=== PATIENT | male | born 1935 | race Caucasian/White ===

== ENCOUNTER 2017-12-13 09:23 | Inpatient (IN) ==
--- NOTE | 2017-12-13 09:58 | ED ---
HPI General Chief complaint: Nausea/Vomiting/Diarrhea Stated complaint: Medical Time Seen by Provider: 12/13/17 09:34 Source: patient Mode of arrival: ambulatory Limitations: no limitations History of Present Illness HPI Narrative: The patient is a 82-year-old male who presents to the emergency department for diarrhea and generalized weakness. The patient states she was recently treated for left lower extremity cellulitis, finished an unknown antibiotic yesterday. The patient states he lives in the [facility], an assisted living facility, went to dinner last night with his friends. However, the patient states he ordered a grilled cheese sandwich but was not hungry and took to grilled cheese sandwich home. The patient then went to bed, was sitting on the side of the bed when he slowly slid to the ground and required help off of the ground. The patient states he was awakened in the middle the night with diarrhea, had 2 episodes of diarrhea which she describes as loose but not watery. He denies any visible blood in the diarrhea. He denied any nausea, vomiting, or abdominal pain. The patient' s symptoms have currently resolved and he states he is hungry upon arrival. He denies any fever, chills, or sweats. Symptoms are mild to moderate and have currently resolved. MD complaint: diarrhea Onset (ago): hour(s) Description of Vomiting: other Description of Diarrhea: resolved Associated Abdominal Pain: No Severity: mild Severity scale (1-10): 2 Pain Consistency: now resolved Relieving factors: none Exacerbating factors: none Associated symptoms: malaise Related Data Home Medications Medication Instructions Recorded Confirmed allopurinol 100 mg PO DAILY 12/13/17 12/13/17 atenolol 50 mg PO DAILY 12/13/17 12/13/17 clopidogrel 75 mg PO DAILY 12/13/17 12/13/17 gabapentin 300 mg PO BID 12/13/17 12/13/17 glipizide 5 mg PO BID 12/13/17 12/13/17 lisinopril 20 mg PO DAILY 12/13/17 12/13/17 sitagliptin [Januvia] 100 mg PO DAILY 12/13/17 12/13/17 tramadol 50 mg PO QID 12/13/17 12/13/17 Allergies Allergy/AdvReac Type Severity Reaction Status Date / Time ciprofloxacin Allergy Severe Unverified 11/07/16 14:33 levofloxacin Allergy Severe Unverified 11/07/16 14:33 penicillin G Allergy Severe Unverified 11/07/16 14:33 rofecoxib Allergy Severe Hives Unverified 11/07/16 14:33 Review of Systems ROS: all other systems reviewed are negative [facility] Medical History Medical History CAD (coronary artery disease) (Acute) Cataract (Acute) HTN (hypertension) (Acute) Type 2 diabetes mellitus (Acute) Surgical History Surgical History Stented coronary artery (Acute) Social History Social History Substance History: No History of Abuse Second Hand Smoke Exposure: No Smoking Status: Former smoker Tobacco Type: Cigarettes How Often Do You Have a Drink Containing Alcohol: Monthly or less Recent Travel in [facility] within the Last 8 Weeks: No Recent Out of Country Travel within the Last 8 Weeks: No Immunization History Tetanus Immunization: Unsure Hx Influenza Vaccine This Season: No Exam Narrative Exam Narrative: GENERAL: Awake, alert, pleasant 82-year-old male who appears his stated age and is in no acute respiratory distress. SKIN: Focused skin assessment warm/dry. HEAD: Atraumatic. Normocephalic. EYES: Pupils equal and round. No scleral icterus. No injection or drainage. ENT: No nasal bleeding or discharge. Mucous membranes pink and moist. Missing multiple teeth. NECK: Trachea midline. No JVD. CARDIOVASCULAR: Regular rate and rhythm. No murmur appreciated. RESPIRATORY: No accessory muscle use. Clear to auscultation. Breath sounds equal bilaterally. GASTROINTESTINAL: Abdomen soft, obese with a large pannus. MUSCULOSKELETAL: No obvious deformities. No clubbing. No cyanosis. Bilateral lower extremity edema. Minimal erythema of the anterior aspect the left leg which is dull. Pitting edema bilaterally. NEUROLOGICAL: Awake and alert. No obvious cranial nerve deficits. Motor grossly within normal limits. Normal speech. PSYCHIATRIC: Appropriate mood and affect; insight and judgment normal. Course Initial Documented Vital Signs Temperature 98.0 F 12/13/17 09:28 Pulse Rate 66 12/13/17 09:28 Respiratory Rate 18 12/13/17 09:28 Blood Pressure 129/58 L 12/13/17 09:28 Pulse Oximetry 96 12/13/17 09:28 Last Documented Vital Signs Temperature 98.0 F 12/13/17 09:33 Pulse Rate 66 12/13/17 09:33 Respiratory Rate 18 12/13/17 09:33 Blood Pressure 129/58 L 12/13/17 09:33 Pulse Oximetry 98 12/13/17 09:33 Medical Decision Making MDM Narrative Medical decision making narrative: IV was established, labs are drawn and sent, and the patient was placed on cardiac telemetry monitoring and continuous pulse oximetry monitoring. Lactic acid and CBC were sent to lab. The patient was hungry and currently asymptomatic, therefore, was ordered a diabetic diet. The patient's white count is unremarkable. Lactic acid is unremarkable. However, BUN and creatinine were elevated. Potassium is elevated at 6.6, no evidence of hemolysis. Patient may have hyperkalemia secondary to acute dehydration. The patient was administered IV fluids, insulin, D50, and bicarbonate. I reviewed the EMR, his last creatinine was 1.26, his creatinine now is greater than 2. The patient will require judicious IV hydration and repeat evaluation of his basic metabolic profile. Therefore, the on-call medical service was paged for admission. Medical Screen Exam Complete: Yes Emergency Medical Condition: Yes Differential Diagnosis Differential Diagnosis: Differential diagnosis includes gastroenteritis, enteritis, colitis, medication side effect secondary antibiotics, C. difficile, dehydration, acute kidney injury, pancreatitis, viral syndrome. Lab Data Lab results reviewed: Yes I reviewed the patient's lab results. Result diagrams: 12/13/17 10:00 12/13/17 10:00 Lab Results 12/13/17 12/13/17 12/13/17 Range/Units 10:00 10:00 10:00 WBC 8.1 (4.0-11.0) th/mm3 RBC 3.67 L (4.50-5.90) mil/mm3 Hgb 11.6 L (13.0-17.0) gm/dL Hct 35.9 L (39.0-51.0) % MCV 97.9 (80.0-100.0) fL MCH 31.6 (27.0-34.0) pg MCHC 32.3 (32.0-36.0) % RDW 15.1 (11.6-17.2) % Plt Count 187 (150-450) th/mm3 MPV 8.4 (7.0-11.0) fL Neut % (Auto) 68.6 (16.0-70.0) % Lymph % (Auto) 18.1 (9.0-44.0) % [place] % (Auto) 11.5 H (0.0-8.0) % Eos % (Auto) 1.3 (0.0-4.0) % Baso % (Auto) 0.5 (0.0-2.0) % Neut # (Auto) 5.6 (1.8-7.7) th/mm3 Lymph # (Auto) 1.5 (1.0-4.8) th/mm3 [place] # (Auto) 0.9 (0.0-0.9) th/mm3 Eos # (Auto) 0.1 (0.0-0.4) th/mm3 Baso # (Auto) 0.0 (0.0-0.2) th/mm3 WBC Differential . Differential Comment Auto diff final Sodium 138 (136-145) meq/L Potassium 6.6 H* (3.5-5.1) meq/L Chloride 107 (98-107) meq/L Carbon Dioxide 24.5 (21.0-32.0) meq/L Anion Gap 7 (5-15) meq/L BUN 56 H (7-18) mg/dL Creatinine 2.21 H (0.60-1.30) mg/dL Estimated GFR 29 L (>89) mL/min Random Glucose 118 H (74-106) mg/dL Lactic Acid 1.2 (0.4-2.0) mmol/L Calcium 8.7 (8.5-10.1) mg/dL Total Bilirubin 0.4 (0.2-1.0) mg/dL AST 27 (15-37) U/L ALT 28 (12-78) U/L Alkaline Phosphatase 86 (45-117) U/L Total Protein 7.5 (6.4-8.2) g/dL Albumin 3.2 L (3.4-5.0) g/dL Lipase 78 (73-393) U/L ECG Data EKG Prior to Arrival: No Attestation: I personally reviewed and interpreted this ECG as follows: Interpretation: EKG reveals sinus bradycardia with first-degree AV block. [place] interval 293 ms. Q-wave noted in lead III and aVF. Discharge Plan Discharge Disposition Patient Disposition: 30 Still Patient Discharge Condition Condition: Stable Discharge Details Diagnosis: Acute hyperkalemia, Acute kidney injury, Generalized weakness Physicians Team ED Provider: Amrit Villanueva Primary Care Provider: UNKNOWN, Attending Provider: Susana Angel Status ED Status: Admitted Patient
[2017-12-13 10:08] LABS: Baso % (Auto) 0.5 % (0.0-2.0); Eos # (Auto) 0.1 th/mm3 (0.0-0.4); Eos % (Auto) 1.3 % (0.0-4.0); Hematocrit 35.9 % (39.0-51.0); Hemoglobin 11.6 gm/dL (13.0-17.0); Lymph # (Auto) 1.5 th/mm3 (1.0-4.8); Lymph % (Auto) 18.1 % (9.0-44.0); Mean Corpuscular HGB Conc 32.3 % (32.0-36.0); Mean Corpuscular Hemoglobin 31.6 pg (27.0-34.0); Mean Corpuscular Volume 97.9 fL (80.0-100.0); Mean Platelet Volume 8.4 fL (7.0-11.0); Mono # (Auto) 0.9 th/mm3 (0.0-0.9); Mono % (Auto) 11.5 % (0.0-8.0); Neut # (Auto) 5.6 th/mm3 (1.8-7.7); Neut % (Auto) 68.6 % (16.0-70.0); Platelet Count 187 th/mm3 (150-450); Red Blood Count 3.67 mil/mm3 (4.50-5.90); Red Cell Distribution Width 15.1 % (11.6-17.2); White Blood Count 8.1 th/mm3 (4.0-11.0)
[2017-12-13 10:35] LABS: Alanine Aminotransferase 28 U/L (12-78); Albumin 3.2 g/dL (3.4-5.0); Alkaline Phosphatase 86 U/L (45-117); Anion Gap 7 meq/L (5-15); Aspartate Aminotransferase 27 U/L (15-37); Blood Urea Nitrogen 56 mg/dL (7-18); Calcium 8.7 mg/dL (8.5-10.1); Carbon Dioxide 24.5 meq/L (21.0-32.0); Chloride 107 meq/L (98-107); Glomerular Filtration Rate 29 mL/min (>89); Glucose,Random 118 mg/dL (74-106); Lipase 78 U/L (73-393); Sodium 138 meq/L (136-145); Total Protein 7.5 g/dL (6.4-8.2)
[2017-12-13 10:50] LABS: Potassium 6.6 meq/L (3.5-5.1)
[2017-12-13] MEDS ORDERED: Dextrose 50% in Water 50 ML Vial IV.PUSH ONE (11:00)
[2017-12-13] MEDS ORDERED: Sodium Chlor 0.9% Inj 500 ML IV.SIG SCH (11:00)
--- NOTE | 2017-12-13 11:24 | P.HPFP ---
History of Present Illness Primary Care Physician: UNKNOWN History of Present Illness: 82-year-old gentleman with significant past medical history reported to the ED after 2 bouts of diarrhea and generalized weakness. Patient reports that yesterday he had no appetite. He felt abdominal pressure yesterday afternoon and had loose, brown stool. It was nonbloody. Later in the evening, patient was trying to transfer from his electric wheelchair to his bed and slid to the floor due to generalized weakness. He uses an electric wheel chair for mobility and this has not happened before. In the middle of the night patient then loss control of bowels in bed. The stool was more loose than previous but nonbloody. Patient just finished a 10 day course of antibiotic yesterday for cellulitis of the left leg. He does not know the name of the antibiotic. He denies pain in the left leg but reports chronic edema. Patient denies vomiting , headaches, numbness or tingling of his hands or feet, change in vision. He also denies current weakness. Past medical history: Hypertension Diabetes CAD status post coronary angiograms and stenting Hyperlipidemia Diabetic neuropathy CKD- patient was unaware of this but this info was pulled from chart History of previous UTIs Kidney stones knee osteoarthritis Past surgical history: Stent placement in December 2016 Lithotripsy Allergies: ciprofloxacin levofloxacin penicillin (HIVES) Family history: Father: Heart disease Mother: Hypertension Social history: lives at [facility] in independent living with dementia at [facility] mostly sedentary - Diagnosis (1) Acute hyperkalemia (2) Cellulitis (3) Acute diarrhea (4) Diabetes (5) Hypertension (6) Acute kidney injury (7) Coronary artery disease (8) Neuropathy (9) Osteoarthritis (10) DVT prophylaxis (11) Nutrition, metabolism, and development symptoms Review of Systems All other systems reviewed negative except as stated in HPI PMFSH - History History Provided By: Patient, Career Development Specialist / EMT - Medical History Medical History: Medical History (Last Updated 12/13/17 @ 09:31 by Constanza Tim RN) CAD (coronary artery disease) Cataract HTN (hypertension) Type 2 diabetes mellitus - Surgical History Surgical History: Surgical History (Last Updated 12/13/17 @ 09:31 by Constanza Tim RN) Stented coronary artery - Tobacco History Second Hand Smoke Exposure: No Tobacco Use In Past 30 Days: No Smoking Status: Former smoker Tobacco Type: Cigarettes - Alcohol History How Often Do You Have a Drink Containing Alcohol: Monthly or less - Substance Use History Substance History: No History of Abuse - Travel History Recent Travel in the [place] Within the Last 8 Weeks: No Recent Travel Out of the Country Within the Last 8 Weeks: No - Immunization History Tetanus Immunization: Unsure Hx Influenza Vaccine This Season: No Medications and Allergies Active Medications: Active Medications Sodium Chloride (Ns Inj) 500 mls @ 0 mls/hr IV.SIG BOLUS MUNA Sodium Chloride (Ns Flush) 2 ml IV.FLUSH PRN PRN PRN Reason: FLUSH AFTER USING IV ACCESS Allergies Allergy/AdvReac Type Severity Reaction Status Date / Time ciprofloxacin Allergy Severe Unverified 11/07/16 14:33 levofloxacin Allergy Severe Unverified 11/07/16 14:33 penicillin G Allergy Severe Unverified 11/07/16 14:33 rofecoxib Allergy Severe Hives Unverified 11/07/16 14:33 Home Medications Medication Instructions Recorded Confirmed Type allopurinol 100 mg PO DAILY 12/13/17 12/13/17 History atenolol 50 mg PO DAILY 12/13/17 12/13/17 History clopidogrel 75 mg PO DAILY 12/13/17 12/13/17 History gabapentin 300 mg PO BID 12/13/17 12/13/17 History glipizide 5 mg PO BID 12/13/17 12/13/17 History lisinopril 20 mg PO DAILY 12/13/17 12/13/17 History sitagliptin [Januvia] 100 mg PO DAILY 12/13/17 12/13/17 History tramadol 50 mg PO QID 12/13/17 12/13/17 History Exam Vital signs: Vital Signs 12/13/17 09:28 12/13/17 09:33 Temperature 98.0 F 98.0 F Pulse Rate 66 66 Respiratory Rate 18 18 Blood Pressure 129/58 L 129/58 L Pulse Oximetry 96 98 Intake & Output 12/12/17 12/13/17 12/13/17 18:59 06:59 18:59 Weight 127.006 kg - Constitutional no acute distress, morbidly obese - Routine HEENT Exam Head: Present: normocephalic, atraumatic Eye: Present: PERRL ENT: Present: mucous membranes moist - Routine Neck Exam Absent: tenderness - Routine Respiratory Exam Present: CTA bilaterally. Absent: accessory muscle use - Routine Cardiovascular Exam Comments: Patient's heart sounds difficult to hear due to body habitus - Routine Abdominal Exam Absent: tenderness - Routine Extremities Exam Present: edema. Absent: pulses intact Comments: bilateral LE edema, left lower leg erythematous with scratches, warm to the touch, no discharge - Routine Neurological Exam Present: alert, oriented X3 Results - Labs Result diagrams: 12/13/17 10:00 12/13/17 10:00 Abnormal lab results 12/13/17 12/13/17 Range/Units 10:00 10:00 RBC 3.67 L (4.50-5.90) mil/mm3 Hgb 11.6 L (13.0-17.0) gm/dL Hct 35.9 L (39.0-51.0) % [place] % (Auto) 11.5 H (0.0-8.0) % Potassium 6.6 H* (3.5-5.1) meq/L BUN 56 H (7-18) mg/dL Creatinine 2.21 H (0.60-1.30) mg/dL Estimated GFR 29 L (>89) mL/min Random Glucose 118 H (74-106) mg/dL Albumin 3.2 L (3.4-5.0) g/dL Short CBC 12/13/17 Range/Units 10:00 WBC 8.1 (4.0-11.0) th/mm3 Hgb 11.6 L (13.0-17.0) gm/dL Hct 35.9 L (39.0-51.0) % Plt Count 187 (150-450) th/mm3 BMP 12/13/17 10:00 Sodium 138 Potassium 6.6 H* Chloride 107 Carbon Dioxide 24.5 BUN 56 H Creatinine 2.21 H Calcium 8.7 Liver Function 12/13/17 Range/Units 10:00 Total Bilirubin 0.4 (0.2-1.0) mg/dL AST 27 (15-37) U/L ALT 28 (12-78) U/L Alkaline Phosphatase 86 (45-117) U/L Albumin 3.2 L (3.4-5.0) g/dL Caprini VTE Risk Assessment Caprini VTE Risk Assessment: Moderate/High Risk (score >= 2) VTE Mechanical Exception: Severe LE edema Caprini Risk Assessment Model: Point Value = 1 Point Value = 2 Point Value = 3 Point Value = 5 Age 41-60 Minor surgery BMI > 25 kg/m2 Swollen legs Varicose veins or History of unexplained or recurrent spontaneous Oral contraceptives or hormone replacement Sepsis (< 1 month) Serious lung disease, including pneumonia (< 1 month) Abnormal pulmonary function Acute myocardial infarction Congestive heart failure (< 1 month) History of inflammatory bowel disease Medical patient at bed rest Age 61-74 Arthroscopic surgery Major open surgery (> 45 min) Laparoscopic surgery (> 45 min) Malignancy Confined to bed (> 72 hours) Immobilizing plaster cast Central venous access Age >= 75 History of VTE Family history of VTE Factor V Leiden Prothrombin [id number] Lupus anticoagulant Anticardiolipin antibodies Elevated serum homocysteine Heparin-induced thrombocytopenia Other congenital or acquired thrombophilia Stroke (< 1 month) Elective arthroplasty Hip, pelvis, or leg fracture Acute spinal cord injury (< 1 month) Prophylaxis Regimen: Total Risk Factor Score Risk Level Prophylaxis Regimen 0-1 Low Early ambulation 2 Moderate Order ONE of the following: *Sequential Compression Device (SCD) *Heparin 5000 units SQ BID 3-4 Higher Order ONE of the following medications: *Heparin 5000 units SQ TID *Enoxaparin/Lovenox 40 mg SQ daily (WT < 150 kg, CrCl > 30 mL/min) *Enoxaparin/Lovenox 30 mg SQ daily (WT < 150 kg, CrCl > 10-29 mL/min) *Enoxaparin/Lovenox 30 mg SQ BID (WT < 150 kg, CrCl > 30 mL/min) AND/OR *Sequential Compression Device (SCD) 5 or more Highest Order ONE of the following medications: *Heparin 5000 units SQ TID (Preferred with Epidurals) *Enoxaparin/Lovenox 40 mg SQ daily (WT < 150 kg, CrCl > 30 mL/min) *Enoxaparin/Lovenox 30 mg SQ daily (WT < 150 kg, CrCl > 10-29 mL/min) *Enoxaparin/Lovenox 30 mg SQ BID (WT < 150 kg, CrCl > 30 mL/min) AND *Sequential Compression Device (SCD) Assessment and Plan - Assessment (1) Acute hyperkalemia Code(s): E87.5 - Hyperkalemia Status: Acute Plan: Patient's potassium was 6.6. Patient received 10 units Novolin R. Patient's creatinine was elevated at 2.21. He has a history of diabetes in his random glucose was 118. Patient's EKG showed a right BBB. Patient is on a beta- pratibha but has been for some time so I doubt this is the etiology. If hyperkalemia remains we will discontinue atenolol. Chronic kidney disease versus insulin deficiency versus pseudohyperkalemia due to mechanical trauma during venipuncture. -Telemetry -Monitor BMP -Hold lisinopril -Stat Trop -Repeat EKG at 1600 -Strict I's and O's -If hyperkalemia persists, will measure urinary potassium. (2) Cellulitis Code(s): L03.90 - Cellulitis, unspecified Status: Acute Plan: Patient has chronic severe lower extremity edema. He uses a electric wheelchair for mobility. He just finished a 10 day course of an unknown antibiotic. The left lower extremity still erythematous and warm to the touch. Patient has a allergy to Cipro ofloxacin, levofloxacin, penicillin G. Due to failure of outpatient therapy, patient will be started on the 2 agent regimen. -Bactrim DS p.o. every 12 hours -Clindamycin p.o. 4 times daily -Consult wound care, appreciate recommendations -Blood cultures 2 (3) Acute diarrhea Code(s): R19.7 - Diarrhea, unspecified Status: Acute Plan: Patient had 2 bouts of loose, nonbloody stools. He has not had any loose stools upon admission. -IV hydration at less than maintenance due to CKD -Diabetic diet as tolerated -If loose stools continue, C. difficile study will be collected. (4) Diabetes Code(s): E11.9 - Type 2 diabetes mellitus without complications Status: Acute Plan: -Low-dose sliding scale insulin -Continue glipizide and Januvia -Diabetic diet (5) Hypertension Code(s): I10 - Essential (primary) hypertension Status: Acute Plan: Stable. -Continue home meds. (6) Acute kidney injury Code(s): N17.9 - Acute kidney failure, unspecified Status: Acute Plan: Patient's creatinine 2.21. In the patient's chart, it was mentioned that he has chronic kidney disease. Patient denies this. -Monitor creatinine (7) Coronary artery disease Code(s): I25.10 - Atherosclerotic heart disease of [place] coronary artery without angina pectoris Status: Acute Plan: Patient has a history of CAD status post stenting. -Troponin -Repeat EKG at 1600 -Continue home atenolol and Plavix (8) Neuropathy Code(s): G62.9 - Polyneuropathy, unspecified Status: Acute Plan: Patient has diabetic neuropathy in the lower extremities. -Continue home gabapentin (9) Osteoarthritis Code(s): M19.90 - Unspecified osteoarthritis, unspecified site Status: Acute Plan: Patient has a history of osteoarthritis in bilateral knees. -Continue home tramadol (10) DVT prophylaxis Status: Acute Plan: -Heparin 5000 units SQ every 8 hours -Defer SCDs due to severe bilateral lower extremity edema (11) Nutrition, metabolism, and development symptoms Code(s): R63.8 - Other symptoms and signs concerning food and fluid intake Status: Acute Plan: -Diabetic diet -IV hydration
[2017-12-13] MEDS ORDERED: Bisacodyl 10 MG Supp RECTAL PRN (11:57)
--- NOTE | 2017-12-13 12:11 | P.PNFP ---
Subjective Interval history: 82 yo male with known T2DM, stented coronary artery, osteoarthritis knees who was recently on abx for cellulitis left lower leg. He lives in assisted living at [facility]. His is in the SNF there. He went to dinner last night, was in hisusual state of health but awoke in the night with two episodes of very loose, nonbloody stools. No N, V or fever. He is now asymptomatic. Was found to have ALFREDO and hyperkalemia. Please see H&P for this admission for additional historical details, including past, family, social history and ROS. Pt. was seen and examined with Drs. Estrella and Bentley. Results - Labs Result diagrams: 12/13/17 10:00 12/13/17 10:00 Abnormal lab results 12/13/17 12/13/17 Range/Units 10:00 10:00 RBC 3.67 L (4.50-5.90) mil/mm3 Hgb 11.6 L (13.0-17.0) gm/dL Hct 35.9 L (39.0-51.0) % [place] % (Auto) 11.5 H (0.0-8.0) % Potassium 6.6 H* (3.5-5.1) meq/L BUN 56 H (7-18) mg/dL Creatinine 2.21 H (0.60-1.30) mg/dL Estimated GFR 29 L (>89) mL/min Random Glucose 118 H (74-106) mg/dL Albumin 3.2 L (3.4-5.0) g/dL Short CBC 12/13/17 Range/Units 10:00 WBC 8.1 (4.0-11.0) th/mm3 Hgb 11.6 L (13.0-17.0) gm/dL Hct 35.9 L (39.0-51.0) % Plt Count 187 (150-450) th/mm3 BMP 12/13/17 10:00 Sodium 138 Potassium 6.6 H* Chloride 107 Carbon Dioxide 24.5 BUN 56 H Creatinine 2.21 H Calcium 8.7 Liver Function 12/13/17 Range/Units 10:00 Total Bilirubin 0.4 (0.2-1.0) mg/dL AST 27 (15-37) U/L ALT 28 (12-78) U/L Alkaline Phosphatase 86 (45-117) U/L Albumin 3.2 L (3.4-5.0) g/dL Physical Exam Vital signs: Vital Signs 12/13/17 09:28 12/13/17 09:33 Temperature 98.0 F 98.0 F Pulse Rate 66 66 Respiratory Rate 18 18 Blood Pressure 129/58 L 129/58 L Pulse Oximetry 96 98 Intake & Output 12/12/17 12/13/17 12/13/17 18:59 06:59 18:59 Intake Total 500 / 500 Balance 500 / 500 Weight 127.006 kg Intake: IV 500 / 500 NS Inj 500 ML @ Wide Open IV. 500 / 500 SIG BOLUS MUNA Rx#:[id number] - Constitutional no acute distress, morbidly obese - Routine HEENT Exam Head: Present: normocephalic, atraumatic Eye: Present: EOMI ENT: Present: mucous membranes moist. Absent: dentition normal (missing most upper teeth) - Routine Neck Exam Present: supple. Absent: lymphadenopathy - Routine Respiratory Exam Present: CTA bilaterally. Absent: accessory muscle use - Routine Cardiovascular Exam Present: RRR (distant heart sounds) - Routine Abdominal Exam Present: soft, normoactive bowel sounds (protuberant). Absent: tenderness - Routine Extremities Exam Present: normal capillary refill (4+ pitting edema both lower legs, with cellulitis left lateral lower leg recently treated with abx). Absent: cyanosis , clubbing - Routine Skin Exam Present: erythema, lesions, rash (4+ pitting edema both lower legs, with cellulitis left lateral lower leg recently treated with abx). Absent: cyanosis , jaundice - Routine Neurological Exam Present: alert, oriented X3, CN II-XII intact, normal speech - Detailed Neurological Exam: Coma Scale Eye Opening: Spontaneous Verbal Response: Oriented Motor Response: Obey commands [place] Coma Scale Total: 15 Assessment and Plan - Assessment and Plan Replete electrolytes, hydration, evaluation of cellulitis LLE Discharge Planning: Anticipate discharge back to his [facility] - Attending Attestation Pt. was seen and examined and discussed with the medicine B team. See orders. I agree with the plan.
[2017-12-13] MEDS ORDERED: Dextrose 50% in Water 50 ML Vial IV.PUSH PRN (12:21)
[2017-12-13] MEDS: glipiZIDE 5 MG Tablet PO SCH ×2 (15:10→18:17)
[2017-12-13] MEDS: Heparin - SQ 10,000 UNITS/ML Vial SQ SCH ×2 (15:34→20:39)
[2017-12-13] MEDS: Gabapentin 300 MG Capsule PO SCH ×2 (15:35→20:39)
[2017-12-13] MEDS: Sod Chloride 0.9% Inj 1,000 ML IV.CONT SCH ×2 (15:36→20:40)
[2017-12-13] MEDS: Atenolol 50 MG Tablet PO SCH (15:56)
[2017-12-13 18:15] LABS: Calcium 8.6 mg/dL (8.5-10.1); Carbon Dioxide 26.6 meq/L (21.0-32.0); Potassium 5.7 meq/L (3.5-5.1)
[2017-12-13] MEDS: Insulin NovoLIN Regular Correctional Sugar Inj SQ SCH ×2 (18:17→22:29)
--- NOTE | 2017-12-13 18:43 | ECG ---
Date Performed: 12/13/2017 Time Performed: 11:00:01 PTAGE: 82 years EKG: SINUS BRADYCARDIA WITH FIRST DEGREE AV BLOCK RIGHT BUNDLE BRANCH BLOCK ANTEROSEPTAL MYOCARD IAL INFARCTION Compared to previous tracing, Right bundle branch block is new ABNORMAL ECG PREVIOUS TRACING : 01/11/2016 22.32 DOCTOR: Yannick Osborn Interpretating Date/Time 12/13/2017 18:41:53
[2017-12-13] MEDS ORDERED: Sodium Polystyrene Sulfonate/Sorbitol Liq 15 GM/60 ML UDC PO ONE (19:01)
[2017-12-13] MEDS ORDERED: Zolpidem Tartrate 5 MG Tablet PO PRN (21:00)
[2017-12-13 23:29] LABS: Calcium 8.3 mg/dL (8.5-10.1); Carbon Dioxide 25.6 meq/L (21.0-32.0); Potassium 6.2 meq/L (3.5-5.1); Troponin I 0.3 ng/mL (0.02-0.05)
[2017-12-14] MEDS: Sod Chloride 0.9% Inj 1,000 ML IV.CONT SCH ×3 (04:08→18:14)
[2017-12-14] MEDS: Heparin - SQ 10,000 UNITS/ML Vial SQ SCH ×3 (04:08→23:46)
[2017-12-14] MEDS: Insulin NovoLIN Regular Correctional Sugar Inj SQ SCH ×4 (04:16→18:03)
[2017-12-14 04:17] LABS: Baso % (Auto) 0.6 % (0.0-2.0); Eos # (Auto) 0.2 th/mm3 (0.0-0.4); Eos % (Auto) 2.4 % (0.0-4.0); Hematocrit 34.7 % (39.0-51.0); Hemoglobin 11.1 gm/dL (13.0-17.0); Lymph # (Auto) 1.8 th/mm3 (1.0-4.8); Lymph % (Auto) 22.5 % (9.0-44.0); Mean Corpuscular Hemoglobin 31.5 pg (27.0-34.0); Mean Corpuscular Volume 98.4 fL (80.0-100.0); Mean Platelet Volume 8.7 fL (7.0-11.0); Mono % (Auto) 13.1 % (0.0-8.0); Neut # (Auto) 4.8 th/mm3 (1.8-7.7); Neut % (Auto) 61.4 % (16.0-70.0); Platelet Count 210 th/mm3 (150-450); Red Blood Count 3.52 mil/mm3 (4.50-5.90); White Blood Count 7.8 th/mm3 (4.0-11.0)
[2017-12-14 04:27] LABS: Alanine Aminotransferase 27 U/L (12-78); Albumin 2.9 g/dL (3.4-5.0); Anion Gap 7 meq/L (5-15); Aspartate Aminotransferase 25 U/L (15-37); Blood Urea Nitrogen 53 mg/dL (7-18); Calcium 8.5 mg/dL (8.5-10.1); Carbon Dioxide 27.3 meq/L (21.0-32.0); Chloride 109 meq/L (98-107); Glomerular Filtration Rate 30 mL/min (>89); Glucose,Random 74 mg/dL (74-106); Potassium 5.7 meq/L (3.5-5.1); Sodium 143 meq/L (136-145)
[2017-12-14 04:29] LABS: Alkaline Phosphatase 83 U/L (45-117); Total Protein 7.1 g/dL (6.4-8.2)
[2017-12-14] MEDS ORDERED: Sodium Polystyrene Sulfonate/Sorbitol Liq 15 GM/60 ML UDC PO ONE ×2 (07:30→08:00)
[2017-12-14] MEDS: Atenolol 50 MG Tablet PO SCH (08:32)
[2017-12-14] MEDS: glipiZIDE 5 MG Tablet PO SCH ×2 (08:33→18:09)
[2017-12-14] MEDS: Gabapentin 300 MG Capsule PO SCH ×2 (08:33→23:46)
--- NOTE | 2017-12-14 11:07 | P.PNFP ---
Subjective Interval history: Patient seen and examined bedside this morning. Patient had an episode of diarrhea yesterday evening, but denies any abdominal pain. He has not ambulated much at this point so he is not sure if his legs are still weak at this time. He denies any fever/chills. Denies any chest pain/shortness of breath/dizziness. <Domi Allen - 12/14/17 11:06> Results - Labs Result diagrams: 12/14/17 03:34 12/14/17 03:34 <Susana Angel - 12/14/17 11:30> Abnormal lab results 12/13/17 12/13/17 12/13/17 Range/Units 10:00 17:18 17:18 RBC (4.50-5.90) mil/mm3 Hgb (13.0-17.0) gm/dL Hct (39.0-51.0) % [place] % (Auto) (0.0-8.0) % [place] # (Auto) (0.0-0.9) th/mm3 Potassium 5.7 H D (3.5-5.1) meq/L Chloride (98-107) meq/L BUN 55 H (7-18) mg/dL Creatinine 2.28 H (0.60-1.30) mg/dL Estimated GFR 28 L (>89) mL/min POC Glucose (68-110) mg/dl Random Glucose 185 H (74-106) mg/dL Calcium (8.5-10.1) mg/dL Troponin I 0.35 H 0.27 H (0.02-0.05) ng/mL Albumin (3.4-5.0) g/dL 12/13/17 12/13/17 12/14/17 Range/Units 17:56 22:26 03:34 RBC 3.52 L (4.50-5.90) mil/mm3 Hgb 11.1 L (13.0-17.0) gm/dL Hct 34.7 L (39.0-51.0) % [place] % (Auto) 13.1 H (0.0-8.0) % [place] # (Auto) 1.0 H (0.0-0.9) th/mm3 Potassium 6.2 H (3.5-5.1) meq/L Chloride 109 H (98-107) meq/L BUN 51 H (7-18) mg/dL Creatinine 2.14 H (0.60-1.30) mg/dL Estimated GFR 30 L (>89) mL/min POC Glucose 197 H (68-110) mg/dl Random Glucose (74-106) mg/dL Calcium 8.3 L (8.5-10.1) mg/dL Troponin I 0.30 H (0.02-0.05) ng/mL Albumin (3.4-5.0) g/dL 12/14/17 12/14/17 Range/Units 03:34 07:45 RBC (4.50-5.90) mil/mm3 Hgb (13.0-17.0) gm/dL Hct (39.0-51.0) % [place] % (Auto) (0.0-8.0) % [place] # (Auto) (0.0-0.9) th/mm3 Potassium 5.7 H (3.5-5.1) meq/L Chloride 109 H (98-107) meq/L BUN 53 H (7-18) mg/dL Creatinine 2.12 H (0.60-1.30) mg/dL Estimated GFR 30 L (>89) mL/min POC Glucose 130 H (68-110) mg/dl Random Glucose (74-106) mg/dL Calcium (8.5-10.1) mg/dL Troponin I (0.02-0.05) ng/mL Albumin 2.9 L (3.4-5.0) g/dL Short CBC 12/14/17 Range/Units 03:34 WBC 7.8 (4.0-11.0) th/mm3 Hgb 11.1 L (13.0-17.0) gm/dL Hct 34.7 L (39.0-51.0) % Plt Count 210 (150-450) th/mm3 BMP 12/13/17 12/13/17 12/14/17 17:18 22:26 03:34 Sodium 139 140 143 Potassium 5.7 H D 6.2 H 5.7 H Chloride 106 109 H 109 H Carbon Dioxide 26.6 25.6 27.3 BUN 55 H 51 H 53 H Creatinine 2.28 H 2.14 H 2.12 H Calcium 8.6 8.3 L 8.5 Cardiac Enzymes 12/13/17 12/13/17 12/13/17 Range/Units 10:00 17:18 22:26 Troponin I 0.35 H 0.27 H 0.30 H (0.02-0.05) ng/mL Liver Function 12/14/17 Range/Units 03:34 Total Bilirubin 0.4 (0.2-1.0) mg/dL AST 25 (15-37) U/L ALT 27 (12-78) U/L Alkaline Phosphatase 83 (45-117) U/L Albumin 2.9 L (3.4-5.0) g/dL <Stanley,Susana - 12/14/17 11:30> Abnormal lab results 12/13/17 12/13/17 12/13/17 Range/Units 10:00 17:18 17:18 RBC (4.50-5.90) mil/mm3 Hgb (13.0-17.0) gm/dL Hct (39.0-51.0) % [place] % (Auto) (0.0-8.0) % [place] # (Auto) (0.0-0.9) th/mm3 Potassium 5.7 H D (3.5-5.1) meq/L Chloride (98-107) meq/L BUN 55 H (7-18) mg/dL Creatinine 2.28 H (0.60-1.30) mg/dL Estimated GFR 28 L (>89) mL/min POC Glucose (68-110) mg/dl Random Glucose 185 H (74-106) mg/dL Calcium (8.5-10.1) mg/dL Troponin I 0.35 H 0.27 H (0.02-0.05) ng/mL Albumin (3.4-5.0) g/dL 12/13/17 12/13/17 12/14/17 Range/Units 17:56 22:26 03:34 RBC 3.52 L (4.50-5.90) mil/mm3 Hgb 11.1 L (13.0-17.0) gm/dL Hct 34.7 L (39.0-51.0) % [place] % (Auto) 13.1 H (0.0-8.0) % [place] # (Auto) 1.0 H (0.0-0.9) th/mm3 Potassium 6.2 H (3.5-5.1) meq/L Chloride 109 H (98-107) meq/L BUN 51 H (7-18) mg/dL Creatinine 2.14 H (0.60-1.30) mg/dL Estimated GFR 30 L (>89) mL/min POC Glucose 197 H (68-110) mg/dl Random Glucose (74-106) mg/dL Calcium 8.3 L (8.5-10.1) mg/dL Troponin I 0.30 H (0.02-0.05) ng/mL Albumin (3.4-5.0) g/dL 12/14/17 12/14/17 Range/Units 03:34 07:45 RBC (4.50-5.90) mil/mm3 Hgb (13.0-17.0) gm/dL Hct (39.0-51.0) % [place] % (Auto) (0.0-8.0) % [place] # (Auto) (0.0-0.9) th/mm3 Potassium 5.7 H (3.5-5.1) meq/L Chloride 109 H (98-107) meq/L BUN 53 H (7-18) mg/dL Creatinine 2.12 H (0.60-1.30) mg/dL Estimated GFR 30 L (>89) mL/min POC Glucose 130 H (68-110) mg/dl Random Glucose (74-106) mg/dL Calcium (8.5-10.1) mg/dL Troponin I (0.02-0.05) ng/mL Albumin 2.9 L (3.4-5.0) g/dL Short CBC 12/14/17 Range/Units 03:34 WBC 7.8 (4.0-11.0) th/mm3 Hgb 11.1 L (13.0-17.0) gm/dL Hct 34.7 L (39.0-51.0) % Plt Count 210 (150-450) th/mm3 BMP 12/13/17 12/13/17 12/14/17 17:18 22:26 03:34 Sodium 139 140 143 Potassium 5.7 H D 6.2 H 5.7 H Chloride 106 109 H 109 H Carbon Dioxide 26.6 25.6 27.3 BUN 55 H 51 H 53 H Creatinine 2.28 H 2.14 H 2.12 H Calcium 8.6 8.3 L 8.5 Cardiac Enzymes 12/13/17 12/13/17 12/13/17 Range/Units 10:00 17:18 22:26 Troponin I 0.35 H 0.27 H 0.30 H (0.02-0.05) ng/mL Liver Function 12/14/17 Range/Units 03:34 Total Bilirubin 0.4 (0.2-1.0) mg/dL AST 25 (15-37) U/L ALT 27 (12-78) U/L Alkaline Phosphatase 83 (45-117) U/L Albumin 2.9 L (3.4-5.0) g/dL <Domi Allen - 12/14/17 11:06> Physical Exam Vital signs: Vital Signs 12/13/17 13:53 12/13/17 16:00 12/13/17 20:00 Temperature 97.5 F L 97.4 F L 97.8 F Pulse Rate 77 73 66 Respiratory Rate 18 18 22 Blood Pressure 117/58 L 155/89 H 156/60 H Pulse Oximetry 95 95 94 L 12/14/17 00:00 12/14/17 04:00 12/14/17 06:03 Temperature 97.9 F 97.6 F Pulse Rate 64 66 58 L Respiratory Rate 18 18 Blood Pressure 114/55 L 119/59 L Pulse Oximetry 93 L 96 12/14/17 08:00 12/14/17 09:59 Temperature 97.4 F L Pulse Rate 60 60 Respiratory Rate 18 Blood Pressure 120/60 Pulse Oximetry 94 L Intake & Output 12/13/17 12/14/17 12/14/17 18:59 06:59 18:59 Intake Total 500 / 500 2720 / 2720 Balance 500 / 500 2720 / 2720 Weight 123.4 kg Intake: IV 500 / 500 1999 NS Inj 1,000 ML @ 130 mls/hr IV 1999 .CONT .Q7H42M [facility] Rx#:[id number] NS Inj 500 ML @ Wide Open IV. 500 / 500 [facility] Rx#:[id number] Oral 720 / 720 Other: # Voids 1 Date of Last Bowel Movement 12/13/17 12/14/17 12/13/17 # Bowel Movements 3 Weight On Admission 123.4 kg <StanleySusana - 12/14/17 11:30> Vital Signs 12/13/17 11:01 12/13/17 13:53 12/13/17 16:00 Temperature 97.5 F L 97.4 F L Pulse Rate 56 L 77 73 Respiratory Rate 18 18 Blood Pressure 117/58 L 155/89 H Pulse Oximetry 95 95 12/13/17 20:00 12/14/17 00:00 12/14/17 04:00 Temperature 97.8 F 97.9 F 97.6 F Pulse Rate 66 64 66 Respiratory Rate 22 18 18 Blood Pressure 156/60 H 114/55 L 119/59 L Pulse Oximetry 94 L 93 L 96 12/14/17 06:03 12/14/17 08:00 12/14/17 09:59 Temperature 97.4 F L Pulse Rate 58 L 60 60 Respiratory Rate 18 Blood Pressure 120/60 Pulse Oximetry 94 L Intake & Output 12/13/17 12/14/17 12/14/17 18:59 06:59 18:59 Intake Total 500 / 500 2720 / 2720 Balance 500 / 500 2720 / 2720 Weight 123.4 kg Intake: IV 500 / 500 1999 / 1999 NS Inj 1,000 ML @ 130 mls/hr IV 1999 / 1999 .CONT .Q7H42M [facility] Rx#:[id number] NS Inj 500 ML @ Wide Open IV. 500 / 500 SIG BOLUS [facility] Rx#:[id number] Oral 720 / 720 Other: # Voids 1 Date of Last Bowel Movement 12/13/17 12/14/17 12/13/17 # Bowel Movements 3 Weight On Admission 123.4 kg <Domi Allen - 12/14/17 11:06> Narrative: General: Well-nourished, well-developed, in no acute distress Skin: Intact, no rash present HEENT: Neck supple, no nodules appreciated Cardio: Regular rate and rhythm, no murmurs Respiratory: Clear to auscultation bilaterally, no wheezing, rales, crackles. Abdominal: Normal bowel sounds, soft, nondistended, no tenderness Lower extremities: Left calf cellulitis present, slight weeping, decreased erythema from yesterday's exam, no purulent drainage. No tenderness to calf. 2 + edema of lower extremities equal bilaterally. <Domi Allen - 12/14/17 11:06> Assessment and Plan - Assessment (1) Acute hyperkalemia Code(s): E87.5 - Hyperkalemia Status: Inactive (2) Cellulitis Code(s): L03.90 - Cellulitis, unspecified Status: Acute (3) Acute diarrhea Code(s): R19.7 - Diarrhea, unspecified Status: Acute (4) Diabetes Code(s): E11.9 - Type 2 diabetes mellitus without complications Status: Acute (5) Hypertension Code(s): I10 - Essential (primary) hypertension Status: Acute (6) Acute kidney injury Code(s): N17.9 - Acute kidney failure, unspecified Status: Inactive (7) Coronary artery disease Code(s): I25.10 - Atherosclerotic heart disease of [place] coronary artery without angina pectoris Status: Acute (8) Neuropathy Code(s): G62.9 - Polyneuropathy, unspecified Status: Acute (9) Osteoarthritis Code(s): M19.90 - Unspecified osteoarthritis, unspecified site Status: Acute (10) DVT prophylaxis Status: Acute (11) Nutrition, metabolism, and development symptoms Code(s): R63.8 - Other symptoms and signs concerning food and fluid intake Status: Acute <Susana Angel - 12/14/17 11:30> (1) Acute hyperkalemia Code(s): E87.5 - Hyperkalemia Status: Inactive Plan: Patient's potassium was 6.6. Patient received 10 units Novolin R. Patient's creatinine was elevated at 2.21. He has a history of diabetes in his random glucose was 118. Patient's EKG showed a right BBB. Patient is on a beta- pratibha but has been for some time so I doubt this is the etiology. If hyperkalemia remains we will discontinue atenolol. Chronic kidney disease versus insulin deficiency versus malnutrition and dehydration Potassium has slowly decreased from 6.6 --> 5.7 with the following treatments, will follow up BMP this afternoon s/p insulin 10U and D50/50ml x 1 s/p NaHCO3 50meq x 1 s/p Kayexalate 15gm x1, 30gm x 1 -Telemetry -Monitor BMP -Hold lisinopril -EKG & Trop WNL -Strict I's and O's -If hyperkalemia persists, will measure urinary potassium. (2) Cellulitis Code(s): L03.90 - Cellulitis, unspecified Status: Acute Plan: Patient has chronic severe lower extremity edema. No signs of osteomyelitis or sepsis. He uses a electric wheelchair for mobility. He just finished a 10 day course of an unknown antibiotic. The left lower extremity still erythematous and warm to the touch. Patient has a allergy to Cipro ofloxacin, levofloxacin, penicillin G. Due to failure of outpatient therapy, patient will be started on the 2 agent regimen. Improved lower extremity physical exam today, will plan to DC on the following p.o. antibiotic to complete 10-day course -Bactrim DS p.o. every 12 hours -Clindamycin p.o. 4 times daily -Consult wound care, appreciate recommendations -Blood cultures 2 (3) Acute diarrhea Code(s): R19.7 - Diarrhea, unspecified Status: Acute Plan: Patient had 2 bouts of loose stools, with diarrhea last night after Kayexalate medication gastritis versus foodborne illness resulting in dehydration/ elevated creatinine -Increase IV hydration to 160 mL's per hour -Diabetic diet as tolerated -C. difficile negative -We will avoid further Kayexalate for treatment of potassium (4) Diabetes Code(s): E11.9 - Type 2 diabetes mellitus without complications Status: Acute Plan: Bedside glucose within normal limits -Low-dose sliding scale insulin -Continue glipizide and Januvia -Diabetic diet (5) Hypertension Code(s): I10 - Essential (primary) hypertension Status: Acute Plan: Stable. -Continue home meds. (6) Acute kidney injury Code(s): N17.9 - Acute kidney failure, unspecified Status: Inactive Plan: Patient's creatinine 2.21. In the patient's chart, it was mentioned that he has chronic kidney disease with baseline of 1.3. Patient denies this. Increase fluids and monitor creatinine, will need to follow-up with PCP (7) Coronary artery disease Code(s): I25.10 - Atherosclerotic heart disease of [place] coronary artery without angina pectoris Status: Acute Plan: Patient has a history of CAD status post stenting. -ACS workup negative, stable troponin at 0.30 likely due to KESHAWN on CKD -Continue home atenolol and Plavix (8) Neuropathy Code(s): G62.9 - Polyneuropathy, unspecified Status: Acute Plan: Patient has diabetic neuropathy in the lower extremities. -Continue home gabapentin (9) Osteoarthritis Code(s): M19.90 - Unspecified osteoarthritis, unspecified site Status: Acute Plan: Patient has a history of osteoarthritis in bilateral knees. -Continue home tramadol (10) DVT prophylaxis Status: Acute Plan: -Heparin 5000 units SQ every 8 hours -Defer SCDs due to severe bilateral lower extremity edema (11) Nutrition, metabolism, and development symptoms Code(s): R63.8 - Other symptoms and signs concerning food and fluid intake Status: Acute Plan: -Diabetic diet -IV hydration <Domi Allen - 12/14/17 10:52> - Assessment and Plan Discharge Planning: Discharge pending repeat electrolytes this morning, PT evaluation for safe transfer from bed to wheelchair, transport back to [facility], assistance from case management <Domi Allen - 12/14/17 11:06> - Attending Attestation This patient was seen, examined and discussed with the entire medicine B team this morning. I agree with the findings and with the plan. <Susana Angel - 12/14/17 11:30>
[2017-12-14 12:33] LABS: Calcium 8.3 mg/dL (8.5-10.1); Carbon Dioxide 28.7 meq/L (21.0-32.0); Potassium 5.8 meq/L (3.5-5.1)
[2017-12-14] MEDS ORDERED: Dextrose 50% in Water 50 ML Vial IV.PUSH ONE (15:15)
[2017-12-14] MEDS ORDERED: Sodium Bicarbonate 8.4% Inj 50 MEQ/50 ML Syringe IV.PUSH ONE (15:15)
[2017-12-14 18:30] LABS: Calcium 8.2 mg/dL (8.5-10.1); Carbon Dioxide 27.1 meq/L (21.0-32.0); Potassium 5.7 meq/L (3.5-5.1)
--- NOTE | 2017-12-14 18:54 | P.PNWCN ---
Wound Care Nurse Consult Description: Consult for Wound Management of left leg per Dr Estrella Communicated with: Rema RN Patient Was on hold for Susana Angel, brianna for recommendations. However after being on hold for over 10 min with my position in que being 2 and never changing , com writer pressed 1 to leave a message. Recommendation: [facility] Podiatry consult Vascular consult Additional information: Patient see on [address] for wounds on left anterior lower extremity dressed with Versatel One, covered with Maxorb II, secured with rolled gauze. Patient is noted with pitting edema, 2 ulcers cleansed with the smallest superior one measuring ~1.5cm x 1.5cm x <0.1cm and inferiorly the largest measuring ~2cm x 4cm x <0.1cm. Pustules noted outside the periwounds as well. It appears patient has venous/arterial insufficiency in lower extremities with the worst being on the left. Wounds are not actively draining, have no odor, and have tight hairless bright pink periwounds.
[2017-12-14 23:28] LABS: Calcium 8.4 mg/dL (8.5-10.1); Carbon Dioxide 27.2 meq/L (21.0-32.0); Potassium 5.8 meq/L (3.5-5.1)
[2017-12-15] MEDS: Insulin NovoLIN Regular Correctional Sugar Inj SQ SCH ×6 (00:11→22:48)
[2017-12-15] MEDS: Sod Chloride 0.9% Inj 1,000 ML IV.CONT SCH ×5 (00:18→18:34)
[2017-12-15] MEDS: Heparin - SQ 10,000 UNITS/ML Vial SQ SCH ×3 (06:26→21:56)
[2017-12-15 06:59] LABS: Baso % (Auto) 0.5 % (0.0-2.0); Eos # (Auto) 0.2 th/mm3 (0.0-0.4); Eos % (Auto) 3.3 % (0.0-4.0); Hematocrit 32.5 % (39.0-51.0); Hemoglobin 10.6 gm/dL (13.0-17.0); Lymph # (Auto) 1.9 th/mm3 (1.0-4.8); Lymph % (Auto) 25.6 % (9.0-44.0); Mean Corpuscular HGB Conc 32.5 % (32.0-36.0); Mean Corpuscular Hemoglobin 31.4 pg (27.0-34.0); Mean Corpuscular Volume 96.7 fL (80.0-100.0); Mean Platelet Volume 8.3 fL (7.0-11.0); Mono % (Auto) 13.1 % (0.0-8.0); Neut # (Auto) 4.3 th/mm3 (1.8-7.7); Neut % (Auto) 57.5 % (16.0-70.0); Platelet Count 174 th/mm3 (150-450); Red Blood Count 3.37 mil/mm3 (4.50-5.90); Red Cell Distribution Width 15.3 % (11.6-17.2); White Blood Count 7.5 th/mm3 (4.0-11.0)
[2017-12-15 07:48] LABS: Albumin 2.7 g/dL (3.4-5.0); Anion Gap 7 meq/L (5-15); Blood Urea Nitrogen 47 mg/dL (7-18); Calcium 8.1 mg/dL (8.5-10.1); Carbon Dioxide 26.4 meq/L (21.0-32.0); Chloride 111 meq/L (98-107); Glomerular Filtration Rate 35 mL/min (>89); Glucose,Random 84 mg/dL (74-106); Potassium 4.8 meq/L (3.5-5.1); Sodium 144 meq/L (136-145)
[2017-12-15 07:49] LABS: Alanine Aminotransferase 26 U/L (12-78); Aspartate Aminotransferase 24 U/L (15-37)
[2017-12-15 07:52] LABS: Alkaline Phosphatase 81 U/L (45-117); Total Protein 6.6 g/dL (6.4-8.2)
[2017-12-15] MEDS: Atenolol 50 MG Tablet PO SCH (08:28)
[2017-12-15] MEDS: Gabapentin 300 MG Capsule PO SCH ×2 (08:29→21:57)
[2017-12-15] MEDS: glipiZIDE 5 MG Tablet PO SCH ×2 (08:42→18:33)
--- NOTE | 2017-12-15 10:00 | P.PNFP ---
Subjective Interval history: Patient seen and examined bedside this morning. Patient denies any further episodes of diarrhea overnight. He feels like he has a strength back and he is ready to go back to [facility] facility. No acute events overnight. No chest pain/shortness of breath/dizziness. <LutherallynDomi - 12/15/17 10:22> Results - Labs Result diagrams: 12/15/17 06:14 12/15/17 06:14 <Susana Angel - 12/15/17 12:26> Abnormal lab results 12/14/17 12/14/17 12/14/17 Range/Units 12:05 17:19 17:33 RBC (4.50-5.90) mil/mm3 Hgb (13.0-17.0) gm/dL Hct (39.0-51.0) % [place] % (Auto) (0.0-8.0) % [place] # (Auto) (0.0-0.9) th/mm3 Potassium 5.8 H 5.7 H (3.5-5.1) meq/L Chloride 111 H 111 H (98-107) meq/L BUN 49 H 49 H (7-18) mg/dL Creatinine 2.05 H 2.05 H (0.60-1.30) mg/dL Estimated GFR 31 L 31 L (>89) mL/min POC Glucose 118 H (68-110) mg/dl Random Glucose 111 H 134 H (74-106) mg/dL Calcium 8.3 L 8.2 L (8.5-10.1) mg/dL Albumin (3.4-5.0) g/dL 12/14/17 12/15/17 12/15/17 Range/Units 22:49 06:14 06:14 RBC 3.37 L (4.50-5.90) mil/mm3 Hgb 10.6 L (13.0-17.0) gm/dL Hct 32.5 L (39.0-51.0) % [place] % (Auto) 13.1 H (0.0-8.0) % [place] # (Auto) 1.0 H (0.0-0.9) th/mm3 Potassium 5.8 H (3.5-5.1) meq/L Chloride 110 H 111 H (98-107) meq/L BUN 49 H 47 H (7-18) mg/dL Creatinine 1.99 H 1.84 H (0.60-1.30) mg/dL Estimated GFR 32 L 35 L (>89) mL/min POC Glucose (68-110) mg/dl Random Glucose (74-106) mg/dL Calcium 8.4 L 8.1 L (8.5-10.1) mg/dL Albumin 2.7 L (3.4-5.0) g/dL 12/15/17 Range/Units 11:25 RBC (4.50-5.90) mil/mm3 Hgb (13.0-17.0) gm/dL Hct (39.0-51.0) % [place] % (Auto) (0.0-8.0) % [place] # (Auto) (0.0-0.9) th/mm3 Potassium (3.5-5.1) meq/L Chloride (98-107) meq/L BUN (7-18) mg/dL Creatinine (0.60-1.30) mg/dL Estimated GFR (>89) mL/min POC Glucose 132 H (68-110) mg/dl Random Glucose (74-106) mg/dL Calcium (8.5-10.1) mg/dL Albumin (3.4-5.0) g/dL Short CBC 12/15/17 Range/Units 06:14 WBC 7.5 (4.0-11.0) th/mm3 Hgb 10.6 L (13.0-17.0) gm/dL Hct 32.5 L (39.0-51.0) % Plt Count 174 (150-450) th/mm3 [facility] 12/14/17 12/14/17 12/14/17 12:05 17:19 22:49 Sodium 145 144 144 Potassium 5.8 H 5.7 H 5.8 H Chloride 111 H 111 H 110 H Carbon Dioxide 28.7 27.1 27.2 BUN 49 H 49 H 49 H Creatinine 2.05 H 2.05 H 1.99 H Calcium 8.3 L 8.2 L 8.4 L 12/15/17 06:14 Sodium 144 Potassium 4.8 D Chloride 111 H Carbon Dioxide 26.4 BUN 47 H Creatinine 1.84 H Calcium 8.1 L Liver Function 12/15/17 Range/Units 06:14 Total Bilirubin 0.2 (0.2-1.0) mg/dL AST 24 (15-37) U/L ALT 26 (12-78) U/L Alkaline Phosphatase 81 (45-117) U/L Albumin 2.7 L (3.4-5.0) g/dL <Susana Angel - 12/15/17 12:26> Abnormal lab results 12/14/17 12/14/17 12/14/17 Range/Units 12:05 17:19 17:33 RBC (4.50-5.90) mil/mm3 Hgb (13.0-17.0) gm/dL Hct (39.0-51.0) % [place] % (Auto) (0.0-8.0) % [place] # (Auto) (0.0-0.9) th/mm3 Potassium 5.8 H 5.7 H (3.5-5.1) meq/L Chloride 111 H 111 H (98-107) meq/L BUN 49 H 49 H (7-18) mg/dL Creatinine 2.05 H 2.05 H (0.60-1.30) mg/dL Estimated GFR 31 L 31 L (>89) mL/min POC Glucose 118 H (68-110) mg/dl Random Glucose 111 H 134 H (74-106) mg/dL Calcium 8.3 L 8.2 L (8.5-10.1) mg/dL Albumin (3.4-5.0) g/dL 12/14/17 12/15/17 12/15/17 Range/Units 22:49 06:14 06:14 RBC 3.37 L (4.50-5.90) mil/mm3 Hgb 10.6 L (13.0-17.0) gm/dL Hct 32.5 L (39.0-51.0) % [place] % (Auto) 13.1 H (0.0-8.0) % [place] # (Auto) 1.0 H (0.0-0.9) th/mm3 Potassium 5.8 H (3.5-5.1) meq/L Chloride 110 H 111 H (98-107) meq/L BUN 49 H 47 H (7-18) mg/dL Creatinine 1.99 H 1.84 H (0.60-1.30) mg/dL Estimated GFR 32 L 35 L (>89) mL/min POC Glucose (68-110) mg/dl Random Glucose (74-106) mg/dL Calcium 8.4 L 8.1 L (8.5-10.1) mg/dL Albumin 2.7 L (3.4-5.0) g/dL Short CBC 12/15/17 Range/Units 06:14 WBC 7.5 (4.0-11.0) th/mm3 Hgb 10.6 L (13.0-17.0) gm/dL Hct 32.5 L (39.0-51.0) % Plt Count 174 (150-450) th/mm3 BMP 12/14/17 12/14/17 12/14/17 12:05 17:19 22:49 Sodium 145 144 144 Potassium 5.8 H 5.7 H 5.8 H Chloride 111 H 111 H 110 H Carbon Dioxide 28.7 27.1 27.2 BUN 49 H 49 H 49 H Creatinine 2.05 H 2.05 H 1.99 H Calcium 8.3 L 8.2 L 8.4 L 12/15/17 06:14 Sodium 144 Potassium 4.8 D Chloride 111 H Carbon Dioxide 26.4 BUN 47 H Creatinine 1.84 H Calcium 8.1 L Liver Function 12/15/17 Range/Units 06:14 Total Bilirubin 0.2 (0.2-1.0) mg/dL AST 24 (15-37) U/L ALT 26 (12-78) U/L Alkaline Phosphatase 81 (45-117) U/L Albumin 2.7 L (3.4-5.0) g/dL <Domi Hagan - 12/15/17 10:00> Physical Exam Vital signs: Vital Signs 12/14/17 16:00 12/14/17 19:17 12/14/17 20:00 Temperature 97.4 F L 98.1 F Pulse Rate 78 74 70 Respiratory Rate 18 21 Blood Pressure 152/82 H 139/66 Pulse Oximetry 92 L 96 12/15/17 00:00 12/15/17 04:00 12/15/17 08:00 Temperature 98 F 97.8 F 97.3 F L Pulse Rate 72 72 65 Respiratory Rate 19 22 16 Blood Pressure 158/73 H 138/59 L 146/67 H Pulse Oximetry 95 94 L 96 Intake & Output 12/14/17 12/15/17 12/15/17 18:59 06:59 18:59 Intake Total 1999 Output Total 600 / 600 801 / 801 Balance 1400 / 1400 1241 / 1241 Weight 125.3 kg Intake: IV 1999 1000 / 1000 NS Inj 1,000 ML @ 160 mls/hr IV 1999 1000 / 1000 .CONT .Q6H15M [facility] Rx#:[id number] Oral 1042 / 1042 Output: Urine 600 / 600 800 / 800 Stool Other: # Voids 2 Date of Last Bowel Movement 12/13/17 12/14/17 12/14/17 <Susana Angel - 12/15/17 12:26> Vital Signs 12/14/17 09:59 12/14/17 12:00 12/14/17 16:00 Temperature 97.5 F L 97.4 F L Pulse Rate 60 79 78 Respiratory Rate 18 18 Blood Pressure 138/69 152/82 H Pulse Oximetry 93 L 92 L 12/14/17 19:17 12/14/17 20:00 12/15/17 00:00 Temperature 98.1 F 98 F Pulse Rate 74 70 72 Respiratory Rate 21 19 Blood Pressure 139/66 158/73 H Pulse Oximetry 96 95 12/15/17 04:00 12/15/17 08:00 Temperature 97.8 F 97.3 F L Pulse Rate 72 65 Respiratory Rate 22 16 Blood Pressure 138/59 L 146/67 H Pulse Oximetry 94 L 96 Intake & Output 12/14/17 12/15/17 12/15/17 18:59 06:59 18:59 Intake Total 1999 Output Total 600 / 600 801 / 801 Balance 1400 / 1400 1241 / 1241 Weight 125.3 kg Intake: IV 1999 1000 / 1000 NS Inj 1,000 ML @ 160 mls/hr IV 1999 / 1000 .CONT .Q6H15M [facility] Rx#:[id number] Oral 1042 / 1042 Output: Urine 600 / 600 800 / 800 Stool Other: # Voids 2 Date of Last Bowel Movement 12/13/17 12/14/17 12/14/17 <Domi Hagan - 12/15/17 10:00> Narrative: General: Well-nourished, well-developed, in no acute distress Skin: Intact, no rash present HEENT: Neck supple, no nodules appreciated Cardio: Regular rate and rhythm, no murmurs Respiratory: Clear to auscultation bilaterally, no wheezing, rales, crackles. Abdominal: Normal bowel sounds, soft, nondistended, no tenderness Lower extremities: Left calf cellulitis has been dressed by wound care. <Domi Hagan - 12/15/17 10:00> Assessment and Plan - Assessment (1) Cellulitis Code(s): L03.90 - Cellulitis, unspecified Status: Acute (2) Acute diarrhea Code(s): R19.7 - Diarrhea, unspecified Status: Acute (3) Diabetes Code(s): E11.9 - Type 2 diabetes mellitus without complications Status: Acute (4) Hypertension Code(s): I10 - Essential (primary) hypertension Status: Acute (5) Coronary artery disease Code(s): I25.10 - Atherosclerotic heart disease of [place] coronary artery without angina pectoris Status: Acute (6) Neuropathy Code(s): G62.9 - Polyneuropathy, unspecified Status: Acute (7) Osteoarthritis Code(s): M19.90 - Unspecified osteoarthritis, unspecified site Status: Acute (8) DVT prophylaxis Status: Acute (9) Nutrition, metabolism, and development symptoms Code(s): R63.8 - Other symptoms and signs concerning food and fluid intake Status: Acute <StanleySusana - 12/15/17 12:26> (1) Cellulitis Code(s): L03.90 - Cellulitis, unspecified Status: Acute Plan: Patient has chronic severe lower extremity edema. No signs of osteomyelitis or sepsis. He uses a electric wheelchair for mobility. He just finished a 10 day course of an unknown antibiotic. The left lower extremity still erythematous and warm to the touch. Patient has a allergy to Cipro ofloxacin, levofloxacin, penicillin G. Due to failure of outpatient therapy, patient will be started on the 2 agent regimen. Improved lower extremity physical exam today, will plan to DC on the following p.o. antibiotic to complete 10-day course -Bactrim DS p.o. every 12 hours -Clindamycin p.o. 4 times daily -Consult wound care, appreciate recommendations; will do further workup for vascular insufficiency with PCP as outpatient. -Blood cultures 2 (2) Acute diarrhea Code(s): R19.7 - Diarrhea, unspecified Status: Acute Plan: Resolved gastritis versus foodborne illness resulting in dehydration/ elevated creatinine -Increase IV hydration to 160 mL's per hour -Diabetic diet as tolerated -C. difficile negative -We will avoid further Kayexalate for treatment of potassium (3) Diabetes Code(s): E11.9 - Type 2 diabetes mellitus without complications Status: Acute Plan: Bedside glucose within normal limits -Low-dose sliding scale insulin -Continue glipizide and Januvia -Diabetic diet (4) Hypertension Code(s): I10 - Essential (primary) hypertension Status: Acute Plan: Stable. -Continue home meds. (5) Coronary artery disease Code(s): I25.10 - Atherosclerotic heart disease of habematolel coronary artery without angina pectoris Status: Acute Plan: Patient has a history of CAD status post stenting. -ACS workup negative, stable troponin at 0.30 likely due to KESHAWN on CKD -Continue home atenolol and Plavix (6) Neuropathy Code(s): G62.9 - Polyneuropathy, unspecified Status: Acute Plan: Patient has diabetic neuropathy in the lower extremities. -Continue home gabapentin (7) Osteoarthritis Code(s): M19.90 - Unspecified osteoarthritis, unspecified site Status: Acute Plan: Patient has a history of osteoarthritis in bilateral knees. -Continue home tramadol (8) DVT prophylaxis Status: Acute Plan: -Heparin 5000 units SQ every 8 hours -Defer SCDs due to severe bilateral lower extremity edema (9) Nutrition, metabolism, and development symptoms Code(s): R63.8 - Other symptoms and signs concerning food and fluid intake Status: Acute Plan: -Diabetic diet -IV hydration <Domi Hagan - 12/15/17 10:13> - Assessment and Plan Discharge Planning: Discharge pending transport back to [facility], assistance from case management <Domi Hagan - 12/15/17 10:22> - Attending Attestation Pt. seen and examined, discussed with Dr. Hagan. I agree with the findings and the plan. <Susana Angel - 12/15/17 12:26>
--- NOTE | 2017-12-15 10:51 | P.DCO ---
- Home Health Nursing Order: Medical education, Signs/symptoms of disease process, Diabetic education , CHF education, Oxygen administration education, Medication education-adverse effect, Wound care and dressing changes, Nursing assessment with vital signs - Case Management Consult Yes - Certification I have seen patient Clifford Franco on 12/15/17. My clinical findings support the need for the requested home health care services because: Limited mobility due to disease progression, Patient has SOB, Deconditioned with increased weakness, Medication compliance is questionable, Limited ability to care for self, Need for psychosocial assistance, Impaired cognition/judgement , High risk of falls, Infection with risk of complications I certify that my clinical findings support that this patient is homebound because: Impaired cognitive ability/safety, Hx COPD - exertion dyspnea/weakness, Unsteady gait/balance, Unsafe to leave home unassisted, Need for psychosocial assistance, Non-ambulatory: confined to bed or chair, Unable to use public transportation
--- NOTE | 2017-12-15 13:05 | ECG ---
Date Performed: 12/13/2017 Time Performed: 21:45:09 PTAGE: 82 years EKG: Sinus rhythm WITH FIRST DEGREE AV BLOCK RIGHT BUNDLE BRANCH BLOCK INFERIOR MYOCARDIAL INFARCTION , PROBABLY OLD A NTEROSEPTAL MYOCARDIAL INFARCTION , OF INDETERMINATE AGE ABNORMAL ECG PREVIOUS TRACING : 12/13/2017 11.00 Since the previous tracing, no significant change noted DOCTOR: Clifford Carranza Interpretating Date/Time 12/15/2017 13:04:21
[2017-12-15 13:44] LABS: Bacteria,Urine Rare /hpf; Bilirubin,Urine Negative (Negative); Clarity,Urine Hazy (Clear); Color,Urine Yellow (Yellw/Straw); Glucose,Urine (UA) Negative (Negative); Hyaline Casts,Urine 1 /lpf (0-3); Leukocyte Esterase,Urine Trace (Negative); Mucus,Urine Few /lpf (Occasional); Nitrite,Urine Negative (Negative); Specific Gravity,Urine 1.015 (1.002-1.035); Uric Acid Crystals,Urine Few /hpf
[2017-12-15] MEDS ORDERED: hydrALAZINE 10 MG Tablet PO SCH (19:15)
[2017-12-16] MEDS: Sod Chloride 0.9% Inj 1,000 ML IV.CONT SCH ×2 (02:25→06:01)
[2017-12-16] MEDS: Insulin NovoLIN Regular Correctional Sugar Inj SQ SCH ×5 (04:30→21:17)
[2017-12-16] MEDS: Heparin - SQ 10,000 UNITS/ML Vial SQ SCH ×3 (04:30→21:17)
[2017-12-16] MEDS ORDERED: Furosemide 20 MG Tablet PO ONE (08:45)
[2017-12-16] MEDS: Atenolol 50 MG Tablet PO SCH (08:46)
[2017-12-16] MEDS: Gabapentin 300 MG Capsule PO SCH ×2 (08:47→21:16)
[2017-12-16 09:04] LABS: Baso % (Auto) 0.5 % (0.0-2.0); Eos # (Auto) 0.2 th/mm3 (0.0-0.4); Eos % (Auto) 2.3 % (0.0-4.0); Hematocrit 34.6 % (39.0-51.0); Hemoglobin 11.2 gm/dL (13.0-17.0); Lymph # (Auto) 1.9 th/mm3 (1.0-4.8); Lymph % (Auto) 21.7 % (9.0-44.0); Mean Corpuscular HGB Conc 32.4 % (32.0-36.0); Mean Corpuscular Hemoglobin 31.5 pg (27.0-34.0); Mean Platelet Volume 8.4 fL (7.0-11.0); Mono # (Auto) 1.3 th/mm3 (0.0-0.9); Mono % (Auto) 15.4 % (0.0-8.0); Neut # (Auto) 5.3 th/mm3 (1.8-7.7); Neut % (Auto) 60.1 % (16.0-70.0); Platelet Count 185 th/mm3 (150-450); Red Blood Count 3.57 mil/mm3 (4.50-5.90); Red Cell Distribution Width 15.2 % (11.6-17.2); White Blood Count 8.7 th/mm3 (4.0-11.0)
[2017-12-16] MEDS: glipiZIDE 5 MG Tablet PO SCH (09:16)
[2017-12-16 09:30] LABS: Alanine Aminotransferase 27 U/L (12-78); Albumin 2.8 g/dL (3.4-5.0); Anion Gap 5 meq/L (5-15); Aspartate Aminotransferase 28 U/L (15-37); Calcium 8.4 mg/dL (8.5-10.1); Carbon Dioxide 27.5 meq/L (21.0-32.0); Chloride 112 meq/L (98-107); Glomerular Filtration Rate 37 mL/min (>89); Glucose,Random 74 mg/dL (74-106); Potassium 5.1 meq/L (3.5-5.1); Sodium 144 meq/L (136-145)
[2017-12-16 09:36] LABS: Alkaline Phosphatase 83 U/L (45-117); Blood Urea Nitrogen 39 mg/dL (7-18); Total Protein 6.9 g/dL (6.4-8.2)
--- NOTE | 2017-12-16 09:38 | XR ---
EXAM DATE: 12/16/2017 9:35 AM EDT AGE/SEX: 82 years / Male INDICATIONS: . Congestion. CLINICAL DATA: This is the patient's initial encounter. Patient reports that signs and symptoms have been present for 3 days and indicates a pain score of 0/10. MEDICAL/SURGICAL HISTORY: Hypertension. . Coronary artery stent. COMPARISON: [facility] [place], CHEST SINGLE AP, 01/11/2016. . FINDINGS: Cardiomegaly with increasing interstitial edema without alveolar consolidation or significant pleural effusion. There is no pneumothorax. Degenerative changes about both shoulders. CONCLUSION: Moderate congestive failure worse from 01/11/2016 Electronically signed by: Hadley Adame MD 12/16/2017 9:37 AM EDT
--- NOTE | 2017-12-16 09:38 | P.CONVS ---
History of Present Illness Service: Vascular Surgery Consult date: 12/16/17 Reason for Consult: L LE cellulitis Primary Care Provider: UNKNOWN Chief Complaint: L LE cellulitis History of Present Illness: 82 yo male with L LE edema and cellulitis for months. Sounds like he was being seen by outside PCP who recently retired. + pain with touch. He notes no personal history of DVT but did wear compression about 20 years ago. Review of Systems Constitutional: Denies fever(s) Cardiovascular: Denies chest pain Respiratory: Reports shortness of breath with activity [facility] - History History Provided By: Patient, Equipment Operator Wage Hand / EMT - Medical History Medical History: Medical History (Last Reviewed 12/16/17 @ 09:35 by Adama Butts MD) CAD (coronary artery disease) Cataract HTN (hypertension) Type 2 diabetes mellitus - Surgical History Surgical History: Surgical History (Last Reviewed 12/16/17 @ 09:35 by Adama Butts MD) Stented coronary artery - Tobacco History Second Hand Smoke Exposure: No Tobacco Use In Past 30 Days: No Smoking Status: Former smoker Tobacco Type: Cigarettes - Alcohol History How Often Do You Have a Drink Containing Alcohol: Monthly or less - Substance Use History Substance History: No History of Abuse - Travel History Recent Travel in the [place] Within the Last 8 Weeks: No Recent Travel Out of the Country Within the Last 8 Weeks: No - Immunization History Tetanus Immunization: Unsure Hx Influenza Vaccine This Season: No Medications and Allergies Active Medications: Active Medications Al Hydroxide/Mg Hydroxide (Milk Of Mo [place]) 30 ml PO Q12H PRN PRN Reason: Mild Constipation Atenolol (Tenormin) 50 mg PO DAILY [facility] Last Admin: 12/16/17 08:46 Dose: 50 mg Bisacodyl (Dulcolax Supp) 10 mg RECTAL DAILY PRN PRN Reason: SEVERE CONSITIPATION Calcium Carbonate (Tums Chew) 500 mg CHEW Q2H PRN PRN Reason: acid reflux Clopidogrel Bisulfate (Plavix) 75 mg PO DAILY [facility] Last Admin: 12/16/17 08:47 Dose: 75 mg Dextrose (D50w Vial) 50 ml IV.PUSH UNSCH PRN PRN Reason: PER HYPOGLYCEMIA PROTOCOL Gabapentin (Neurontin) 300 mg PO BID [facility] Last Admin: 12/16/17 08:47 Dose: 300 mg Glucagon (Glucagon Inj) 1 mg OTHER PRN PRN PRN Reason: for Hypoglycemia Protocol Heparin Sodium (Porcine) (Heparin Inj) 5,000 units SQ Q8H [facility] Last Admin: 12/16/17 04:30 Dose: 5,000 units Hydralazine HCl (Apresoline) 10 mg PO ONCE [facility] Last Admin: 12/15/17 21:57 Dose: 10 mg Sodium Chloride (Ns Inj) 500 mls @ 0 mls/hr IV.SIG BOLUS [facility] Last Infusion: 12/13/17 11:58 Dose: Infused Insulin Human Regular (Novolin R Correctional Sugar Inj) 0 units SQ ACHS AND 3AM MUNA; Protocol Last Admin: 12/16/17 08:46 Dose: Not Given Lactulose (Lactulose Liq) 30 ml PO DAILY PRN PRN Reason: SEVERE CONSITIPATION Ondansetron HCl (Zofran Inj) 4 mg IV.PUSH Q6H PRN PRN Reason: NAUSEA OR VOMITING Last Admin: 12/13/17 20:43 Dose: 4 mg Pantoprazole Sodium (Protonix) 40 mg PO DAILY [facility] Last Admin: 12/16/17 08:53 Dose: 40 mg Sennosides (Senokot) 17.2 mg PO Q12H PRN PRN Reason: Moderate Constipation Sitagliptin Phosphate (Januvia) 100 mg PO DAILY [facility] Last Admin: 12/16/17 08:48 Dose: 100 mg Sodium Chloride (Ns Flush) 2 ml IV.FLUSH PRN PRN PRN Reason: FLUSH AFTER USING IV ACCESS Tramadol HCl (Ultram) 50 mg PO Q12HR [facility] Last Admin: 12/16/17 08:48 Dose: 50 mg Zolpidem Tartrate (Ambien) 5 mg PO HS PRN PRN Reason: INSOMNIA Allergies Allergy/AdvReac Type Severity Reaction Status Date / Time ciprofloxacin Allergy Severe Unverified 11/07/16 14:33 levofloxacin Allergy Severe Unverified 11/07/16 14:33 penicillin G Allergy Severe Unverified 11/07/16 14:33 rofecoxib Allergy Severe Hives Unverified 11/07/16 14:33 Home Medications Medication Instructions Recorded Confirmed Type allopurinol 100 mg PO DAILY 12/13/17 12/13/17 History atenolol 50 mg PO DAILY 12/13/17 12/13/17 History clopidogrel 75 mg PO DAILY 12/13/17 12/13/17 History gabapentin 300 mg PO BID 12/13/17 12/13/17 History glipizide 5 mg PO BID 12/13/17 12/13/17 History lisinopril 20 mg PO DAILY 12/13/17 12/13/17 History sitagliptin [Januvia] 100 mg PO DAILY 12/13/17 12/13/17 History tramadol 50 mg PO QID 12/13/17 12/13/17 History Physical Exam Vital Signs / I&O: Vital Signs 12/15/17 12:00 12/15/17 13:22 12/15/17 16:00 Temperature 97.5 F L 97.9 F Pulse Rate 73 64 77 Respiratory Rate 16 16 Blood Pressure 139/72 170/80 H Pulse Oximetry 93 L 95 12/15/17 20:00 12/16/17 00:00 12/16/17 04:00 Temperature 98.0 F 98.0 F 98.0 F Pulse Rate 74 70 68 Respiratory Rate 17 17 18 Blood Pressure 174/88 H 156/79 H 132/72 Pulse Oximetry 98 97 94 L 12/16/17 08:00 12/16/17 08:58 Temperature 97.7 F Pulse Rate 72 79 Respiratory Rate 16 Blood Pressure 153/71 H Pulse Oximetry 94 L Intake & Output 12/15/17 12/16/17 12/16/17 18:59 06:59 18:59 Intake Total 1999 1540 / 1540 Balance 1999 1540 / 1540 Weight 125.9 kg Intake: IV 1999 1000 / 1000 NS Inj 1,000 ML @ 160 mls/hr IV 1999 1000 / 1000 .CONT .Q6H15M [facility] Rx#:[id number] Oral 540 / 540 Other: # Voids 1 Date of Last Bowel Movement 12/14/17 Neuro: alert, mildly SOB but no distress HEENT: anicteric sclera Neck: no JVD Heart: reg rate Lungs: clear Vascular: palpable L DP beneath edema Extremities: L anteriolateral calf cellullitis with punctate skin opening. no streaking erythema Laboratory Results - last 24 hr 12/15/17 12/15/17 12/15/17 09:50 10:31 11:25 WBC RBC Hgb Hct MCV MCH MCHC RDW Plt Count MPV Neut % (Auto) Lymph % (Auto) [place] % (Auto) Eos % (Auto) Baso % (Auto) Neut # (Auto) Lymph # (Auto) [place] # (Auto) Eos # (Auto) Baso # (Auto) WBC Differential Differential Comment Sodium Potassium Chloride Carbon Dioxide Anion Gap Creatinine Estimated GFR POC Glucose 94 110 132 H Random Glucose Calcium AST ALT Albumin Urine Color Urine Clarity Urine pH Ur Specific [place] Urine Protein Urine Glucose (UA) Urine Ketones Urine Occult Blood Urine Nitrate Urine Bilirubin Urine Urobilinogen Ur Leukocyte Esterase Urine RBC Urine WBC Uric Acid Crystals Urine Bacteria Hyaline Casts Urine Mucus Micro UA Comment Ur Microscopic Review Urine Culture Comments 12/15/17 12/15/17 12/16/17 12:50 16:06 03:39 WBC RBC Hgb Hct MCV MCH MCHC RDW Plt Count MPV Neut % (Auto) Lymph % (Auto) [place] % (Auto) Eos % (Auto) Baso % (Auto) Neut # (Auto) Lymph # (Auto) [place] # (Auto) Eos # (Auto) Baso # (Auto) WBC Differential Differential Comment Sodium Potassium Chloride Carbon Dioxide Anion Gap Creatinine Estimated GFR POC Glucose 216 H 79 Random Glucose Calcium AST ALT Albumin Urine Color Yellow Urine Clarity Hazy H Urine pH 5.0 Ur Specific [place] 1.015 Urine Protein 100 H Urine Glucose (UA) Negative Urine Ketones Negative Urine Occult Blood Small H Urine Nitrate Negative Urine Bilirubin Negative Urine Urobilinogen Less than 2 Ur Leukocyte Esterase Trace H Urine RBC 3 Urine WBC 10 H Uric Acid Crystals Few H Urine Bacteria Rare H Hyaline Casts 1 Urine Mucus Few H Micro UA Comment Culture indicated Ur Microscopic Review Not Reportable Urine Culture Comments Culture indicated 12/16/17 12/16/17 12/16/17 07:56 08:03 08:03 WBC 8.7 RBC 3.57 L Hgb 11.2 L Hct 34.6 L MCV 97.0 MCH 31.5 MCHC 32.4 RDW 15.2 Plt Count 185 MPV 8.4 Neut % (Auto) 60.1 Lymph % (Auto) 21.7 [place] % (Auto) 15.4 H Eos % (Auto) 2.3 Baso % (Auto) 0.5 Neut # (Auto) 5.3 Lymph # (Auto) 1.9 [place] # (Auto) 1.3 H Eos # (Auto) 0.2 Baso # (Auto) 0.0 WBC Differential . Differential Comment Auto diff final Sodium 144 Potassium 5.1 Chloride 112 H Carbon Dioxide 27.5 Anion Gap 5 Creatinine 1.76 H Estimated GFR 37 L POC Glucose 56 L Random Glucose 74 Calcium 8.4 L AST 28 ALT 27 Albumin 2.8 L Urine Color Urine Clarity Urine pH Ur Specific [place] Urine Protein Urine Glucose (UA) Urine Ketones Urine Occult Blood Urine Nitrate Urine Bilirubin Urine Urobilinogen Ur Leukocyte Esterase Urine RBC Urine WBC Uric Acid Crystals Urine Bacteria Hyaline Casts Urine Mucus Micro UA Comment Ur Microscopic Review Urine Culture Comments 12/16/17 12/16/17 08:05 08:21 WBC RBC Hgb Hct MCV MCH MCHC RDW Plt Count MPV Neut % (Auto) Lymph % (Auto) [place] % (Auto) Eos % (Auto) Baso % (Auto) Neut # (Auto) Lymph # (Auto) [place] # (Auto) Eos # (Auto) Baso # (Auto) WBC Differential Differential Comment Sodium Potassium Chloride Carbon Dioxide Anion Gap Creatinine Estimated GFR POC Glucose 83 101 Random Glucose Calcium AST ALT Albumin Urine Color Urine Clarity Urine pH Ur Specific [place] Urine Protein Urine Glucose (UA) Urine Ketones Urine Occult Blood Urine Nitrate Urine Bilirubin Urine Urobilinogen Ur Leukocyte Esterase Urine RBC Urine WBC Uric Acid Crystals Urine Bacteria Hyaline Casts Urine Mucus Micro UA Comment Ur Microscopic Review Urine Culture Comments Microbiology 12/13/17 14:38 Aerobic Blood Culture - Preliminary Blood - Peripheral No growth in 2 days Anaerobic Blood Culture - Preliminary No growth in 2 days 12/13/17 14:43 Aerobic Blood Culture - Preliminary Blood - Peripheral No growth in 2 days Anaerobic Blood Culture - Preliminary No growth in 2 days Assessment and Plan - Assessment (1) Cellulitis Code(s): L03.90 - Cellulitis, unspecified Status: Acute - Plan Cellulitis and likely venous insufficiency. NO arterial insufficiency despite CAD and DM. Rec wound care as you are doing and compression, even with BLOSSOM wraps from toes to thighs. Can be safely followed as outpatient from vascular surgery standpoint and I'll arrange when office opens tomorrow morning. Adama Butts MD FACS RPVI sanitarian [facility] - Heart and Vascular Surgery [phone]
--- NOTE | 2017-12-16 09:57 | P.PNFP ---
Subjective Interval history: Patient seen and examined at bedside today. This morning patient's blood sugar was 56. His glipizide was held. Patient reports a cough due to reflux. He has not had any diarrhea. His appetite is good. He denies shortness of breath, chest pain. <Jelena Estrella - 12/16/17 09:57> Results - Labs Result diagrams: 12/16/17 08:03 12/16/17 08:03 <Erica Angelan - 12/16/17 12:15> Abnormal lab results 12/15/17 12/15/17 12/16/17 Range/Units 12:50 16:06 07:56 RBC (4.50-5.90) mil/mm3 Hgb (13.0-17.0) gm/dL Hct (39.0-51.0) % [place] % (Auto) (0.0-8.0) % [place] # (Auto) (0.0-0.9) th/mm3 Chloride (98-107) meq/L BUN (7-18) mg/dL Creatinine (0.60-1.30) mg/dL Estimated GFR (>89) mL/min POC Glucose 216 H 56 L (68-110) mg/dl Calcium (8.5-10.1) mg/dL Albumin (3.4-5.0) g/dL Urine Clarity Hazy H (Clear) Urine Protein 100 H (Neg-Trace) mg/dL Urine Occult Blood Small H (Negative) Ur Leukocyte Esterase Trace H (Negative) Urine WBC 10 H (0-5) /hpf Uric Acid Crystals Few H (None) /hpf Urine Bacteria Rare H (None) /hpf Urine Mucus Few H (Occasional) /lpf 12/16/17 12/16/17 12/16/17 Range/Units 08:03 08:03 11:45 RBC 3.57 L (4.50-5.90) mil/mm3 Hgb 11.2 L (13.0-17.0) gm/dL Hct 34.6 L (39.0-51.0) % [place] % (Auto) 15.4 H (0.0-8.0) % [place] # (Auto) 1.3 H (0.0-0.9) th/mm3 Chloride 112 H (98-107) meq/L BUN 39 H (7-18) mg/dL Creatinine 1.76 H (0.60-1.30) mg/dL Estimated GFR 37 L (>89) mL/min POC Glucose 178 H (68-110) mg/dl Calcium 8.4 L (8.5-10.1) mg/dL Albumin 2.8 L (3.4-5.0) g/dL Urine Clarity (Clear) Urine Protein (Neg-Trace) mg/dL Urine Occult Blood (Negative) Ur Leukocyte Esterase (Negative) Urine WBC (0-5) /hpf Uric Acid Crystals (None) /hpf Urine Bacteria (None) /hpf Urine Mucus (Occasional) /lpf Short CBC 12/16/17 Range/Units 08:03 WBC 8.7 (4.0-11.0) th/mm3 Hgb 11.2 L (13.0-17.0) gm/dL Hct 34.6 L (39.0-51.0) % Plt Count 185 (150-450) th/mm3 BMP 12/16/17 08:03 Sodium 144 Potassium 5.1 Chloride 112 H Carbon Dioxide 27.5 BUN 39 H Creatinine 1.76 H Calcium 8.4 L Liver Function 12/16/17 Range/Units 08:03 Total Bilirubin 0.2 (0.2-1.0) mg/dL AST 28 (15-37) U/L ALT 27 (12-78) U/L Alkaline Phosphatase 83 (45-117) U/L Albumin 2.8 L (3.4-5.0) g/dL Urine 12/15/17 Range/Units 12:50 Urine Color Yellow (Yellw/Straw) Urine Clarity Hazy H (Clear) Urine pH 5.0 (5.0-8.5) Ur Specific [place] 1.015 (1.002-1.035) Urine Protein 100 H (Neg-Trace) mg/dL Urine Glucose (UA) Negative (Negative) mg/dL <Susana Angel - 12/16/17 12:15> Abnormal lab results 12/15/17 12/15/17 12/15/17 Range/Units 11:25 12:50 16:06 RBC (4.50-5.90) mil/mm3 Hgb (13.0-17.0) gm/dL Hct (39.0-51.0) % [place] % (Auto) (0.0-8.0) % [place] # (Auto) (0.0-0.9) th/mm3 Chloride (98-107) meq/L BUN (7-18) mg/dL Creatinine (0.60-1.30) mg/dL Estimated GFR (>89) mL/min POC Glucose 132 H 216 H (68-110) mg/dl Calcium (8.5-10.1) mg/dL Albumin (3.4-5.0) g/dL Urine Clarity Hazy H (Clear) Urine Protein 100 H (Neg-Trace) mg/dL Urine Occult Blood Small H (Negative) Ur Leukocyte Esterase Trace H (Negative) Urine WBC 10 H (0-5) /hpf Uric Acid Crystals Few H (None) /hpf Urine Bacteria Rare H (None) /hpf Urine Mucus Few H (Occasional) /lpf 12/16/17 12/16/17 12/16/17 Range/Units 07:56 08:03 08:03 RBC 3.57 L (4.50-5.90) mil/mm3 Hgb 11.2 L (13.0-17.0) gm/dL Hct 34.6 L (39.0-51.0) % [place] % (Auto) 15.4 H (0.0-8.0) % [place] # (Auto) 1.3 H (0.0-0.9) th/mm3 Chloride 112 H (98-107) meq/L BUN 39 H (7-18) mg/dL Creatinine 1.76 H (0.60-1.30) mg/dL Estimated GFR 37 L (>89) mL/min POC Glucose 56 L (68-110) mg/dl Calcium 8.4 L (8.5-10.1) mg/dL Albumin 2.8 L (3.4-5.0) g/dL Urine Clarity (Clear) Urine Protein (Neg-Trace) mg/dL Urine Occult Blood (Negative) Ur Leukocyte Esterase (Negative) Urine WBC (0-5) /hpf Uric Acid Crystals (None) /hpf Urine Bacteria (None) /hpf Urine Mucus (Occasional) /lpf Short CBC 12/16/17 Range/Units 08:03 WBC 8.7 (4.0-11.0) th/mm3 Hgb 11.2 L (13.0-17.0) gm/dL Hct 34.6 L (39.0-51.0) % Plt Count 185 (150-450) th/mm3 BMP 12/16/17 08:03 Sodium 144 Potassium 5.1 Chloride 112 H Carbon Dioxide 27.5 BUN 39 H Creatinine 1.76 H Calcium 8.4 L Liver Function 12/16/17 Range/Units 08:03 Total Bilirubin 0.2 (0.2-1.0) mg/dL AST 28 (15-37) U/L ALT 27 (12-78) U/L Alkaline Phosphatase 83 (45-117) U/L Albumin 2.8 L (3.4-5.0) g/dL Urine 12/15/17 Range/Units 12:50 Urine Color Yellow (Yellw/Straw) Urine Clarity Hazy H (Clear) Urine pH 5.0 (5.0-8.5) Ur Specific [place] 1.015 (1.002-1.035) Urine Protein 100 H (Neg-Trace) mg/dL Urine Glucose (UA) Negative (Negative) mg/dL <Jelena Estrella - 12/16/17 09:57> - Imaging Impressions Chest X-Ray 12/16/17 00:00 CONCLUSION: Moderate congestive failure worse from 01/11/2016 <Susana Angel - 12/16/17 12:15> Impressions Chest X-Ray 12/16/17 00:00 CONCLUSION: Moderate congestive failure worse from 01/11/2016 <Jelena Estrella - 12/16/17 09:57> Physical Exam Vital signs: Vital Signs 12/15/17 13:22 12/15/17 16:00 12/15/17 20:00 Temperature 97.9 F 98.0 F Pulse Rate 64 77 74 Respiratory Rate 16 17 Blood Pressure 170/80 H 174/88 H Pulse Oximetry 95 98 12/16/17 00:00 12/16/17 04:00 12/16/17 08:00 Temperature 98.0 F 98.0 F 97.7 F Pulse Rate 70 68 72 Respiratory Rate 17 18 16 Blood Pressure 156/79 H 132/72 153/71 H Pulse Oximetry 97 94 L 94 L 12/16/17 08:58 Temperature Pulse Rate 79 Respiratory Rate Blood Pressure Pulse Oximetry Intake & Output 12/15/17 12/16/17 12/16/17 18:59 06:59 18:59 Intake Total 1999 1540 / 1540 Balance 1999 1540 / 1540 Weight 125.9 kg Intake: IV 1999 1000 / 1000 NS Inj 1,000 ML @ 160 mls/hr IV 1999 1000 / 1000 .CONT .Q6H15M [facility] Rx#:[id number] Oral 540 / 540 Other: # Voids 1 Date of Last Bowel Movement 12/14/17 <Susana Angel - 12/16/17 12:15> Vital Signs 12/15/17 12:00 12/15/17 13:22 12/15/17 16:00 Temperature 97.5 F L 97.9 F Pulse Rate 73 64 77 Respiratory Rate 16 16 Blood Pressure 139/72 170/80 H Pulse Oximetry 93 L 95 12/15/17 20:00 12/16/17 00:00 12/16/17 04:00 Temperature 98.0 F 98.0 F 98.0 F Pulse Rate 74 70 68 Respiratory Rate 17 17 18 Blood Pressure 174/88 H 156/79 H 132/72 Pulse Oximetry 98 97 94 L 12/16/17 08:00 12/16/17 08:58 Temperature 97.7 F Pulse Rate 72 79 Respiratory Rate 16 Blood Pressure 153/71 H Pulse Oximetry 94 L Intake & Output 12/15/17 12/16/17 12/16/17 18:59 06:59 18:59 Intake Total 1999 1540 / 1540 Balance 1999 1540 / 1540 Weight 125.9 kg Intake: IV 1999 1000 / 1000 NS Inj 1,000 ML @ 160 mls/hr IV 1999 1000 / 1000 .CONT .Q6H15M [facility] Rx#:[id number] Oral 540 / 540 Other: # Voids 1 Date of Last Bowel Movement 12/14/17 <Jelena Estrella A - 12/16/17 09:57> - Constitutional no acute distress, morbidly obese <JiemayelintanaJelena A - 12/16/17 09:57> - Routine HEENT Exam Head: Present: atraumatic <SameerJelena A - 12/16/17 09:57> - Routine Respiratory Exam Present: CTA bilaterally <SameerJelena A - 12/16/17 09:57> - Routine Cardiovascular Exam Present: RRR, S1, S2 <Jelena Estrella - 12/16/17 09:57> Comments: distant heart sounds due to body habitus <Jelena Estrella - 12/16/17 09:57> - Routine Extremities Exam Present: edema. Absent: tenderness <Jelena Estrella 12/16/17 09:57> Comments: bandage on left LE. Non erythematous. Edematous UE. <Jelena Estrella - 12/16/17 09:57> - Routine Neurological Exam Present: alert, oriented X3 <Jelena Estrella 12/16/17 09:57> Assessment and Plan - Assessment (1) Cellulitis Code(s): L03.90 - Cellulitis, unspecified Status: Acute (2) Cough Code(s): R05 - Cough Status: Acute (3) Acute diarrhea Code(s): R19.7 - Diarrhea, unspecified Status: Acute (4) Diabetes Code(s): E11.9 - Type 2 diabetes mellitus without complications Status: Acute (5) Hypertension Code(s): I10 - Essential (primary) hypertension Status: Acute (6) Coronary artery disease Code(s): I25.10 - Atherosclerotic heart disease of [place] coronary artery without angina pectoris Status: Acute (7) Neuropathy Code(s): G62.9 - Polyneuropathy, unspecified Status: Acute (8) Osteoarthritis Code(s): M19.90 - Unspecified osteoarthritis, unspecified site Status: Acute (9) DVT prophylaxis Status: Acute (10) Nutrition, metabolism, and development symptoms Code(s): R63.8 - Other symptoms and signs concerning food and fluid intake Status: Acute <Susana Angel - 12/16/17 12:15> (1) Cellulitis Code(s): L03.90 - Cellulitis, unspecified Status: Acute Plan: Patient has chronic severe lower extremity edema. No signs of osteomyelitis or sepsis. He uses a electric wheelchair for mobility. He just finished a 10 day course of an unknown antibiotic. The left lower extremity still erythematous and warm to the touch. Patient has a allergy to Cipro ofloxacin, levofloxacin, penicillin G. Due to failure of outpatient therapy, patient was started on the 2 agent regimen on December 13. He received 3 days of Bactrim DS and clindamycin. Patient's lower extremity findings were likely due to vascular insufficiency. Cellulitis was likely adequately treated prior to hospitalization. Antibiotics were discontinued -Consult wound care, appreciate recommendations; will do further workup for vascular insufficiency with consult to vascular surgery and podiatry. -Patient has severe peripheral lower extremity and upper extremity edema. IV hydration discontinued. 20 mg Lasix administered as a one-time dose. -Blood cultures 2: No growth 2 days. -Urine culture PENDING (2) Cough Code(s): R05 - Cough Status: Acute Plan: Patient reports that he has a cough due to reflux. He has had severe reflux since yesterday. I suspect that this is from eating when he is in bed. Due to body habitus, it is difficult for him to sit up straight in the bed when eating and drinking. He reports that any liquids that he drinks, reflux back up his esophagus and makes him cough. -Chest x-ray -Pantoprazole 40 mg (3) Acute diarrhea Code(s): R19.7 - Diarrhea, unspecified Status: Acute Plan: Resolved gastritis versus foodborne illness resulting in dehydration/ elevated creatinine -Discontinue IV hydration as patient's p.o. intake is sufficient. -Diabetic diet as tolerated -C. difficile negative -We will avoid further Kayexalate for treatment of potassium (4) Diabetes Code(s): E11.9 - Type 2 diabetes mellitus without complications Status: Acute Plan: Fasting glucose 56 this morning. He is on a diabetic diet in the hospital and I suspect that he was not following his diet at home. -Discontinue glipizide due to hypoglycemia -Low-dose sliding scale insulin -Continue Januvia -Diabetic diet (5) Hypertension Code(s): I10 - Essential (primary) hypertension Status: Acute Plan: Stable. -Continue home meds. (6) Coronary artery disease Code(s): I25.10 - Atherosclerotic heart disease of [place] coronary artery without angina pectoris Status: Acute Plan: Patient has a history of CAD status post stenting. -ACS workup negative, stable troponin at 0.30 likely due to KES[place]WN on CKD -Continue home atenolol and Plavix (7) Neuropathy Code(s): G62.9 - Polyneuropathy, unspecified Status: Acute Plan: Patient has diabetic neuropathy in the lower extremities. -Continue home gabapentin (8) Osteoarthritis Code(s): M19.90 - Unspecified osteoarthritis, unspecified site Status: Acute Plan: Patient has a history of osteoarthritis in bilateral knees. -Continue home tramadol (9) DVT prophylaxis Status: Acute Plan: -Heparin 5000 units SQ every 8 hours -Defer SCDs due to severe bilateral lower extremity edema (10) Nutrition, metabolism, and development symptoms Code(s): R63.8 - Other symptoms and signs concerning food and fluid intake Status: Acute Plan: -Diabetic diet <Jelena Estrella - 12/16/17 09:39> - Assessment and Plan Patient will likely be [facility] to [facility] early this week. <Jelena Estrella - 12/16/17 09:57> - Attending Attestation Pt. seen, examined and discussed with Dr. Estrella. I agree with the findings and the plan. <Susana Angel - 12/16/17 12:15>
--- NOTE | 2017-12-16 10:07 | P.PNADD ---
Addendum to Inpatient Note Reason for Addendum: Additional Documentation Additional information: Transfer of Service Note From: Dr. Hagan and Dr. Estrella To: Dr. Scruggs and Dr. Mooney 82-year-old male with a history of type 2 diabetes, CAD status post stents, osteoarthritis of his knees, recent cellulitis presented to the ED on December 13 after 2 episodes of loose nonbloody stools and weakness. He was found to have a KESHAWN and hyperkalemia. Due to his cardiovascular history, ACS workup was ordered. Troponins were elevated but stable and this was likely due to his metabolic disturbance. His electrolytes have been corrected. He also had edema of his lower extremities and erythema on his left lower extremity. He had just completed a 10 day course of unknown antibiotics as an outpatient and the lower extremity was thought to still be infected. He was started on clindamycin and Bactrim in completed 3 days of these medications. Wound care was consulted. And from their recommendations podiatry and vascular surgery have been consulted. Antibiotics were discontinued on December 16 due to clinical suspicion that the lower extremity edema and erythema was not infected and likely due to poor vasculature. Patient also had hypoglycemia on 12/16. His glipizide was discontinued. Patient also has had severe reflux so a PPI was started. A chest x-ray was completed that showed CHF congestion but no consolidates. He was given a one-time dose of Lasix today, 12/16.
--- NOTE | 2017-12-16 18:55 | MB ---
cc: Ella Patrick DPM DATE: 12/16/2017 REASON FOR CONSULTATION: Left leg wound, vascular insufficiency. HISTORY OF PRESENT ILLNESS: The patient is an 82-year-old male with a history of diabetes and lower extremity swelling. 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 He is in between primary cares as his recent most primary care has retired. Currently, he is living at the [facility]. He does not recall an injury to his left leg. Did finish a 10-day course of oral antibiotics for his left leg. Denies any nausea, vomiting, fever, diarrhea or chills. PAST MEDICAL HISTORY: Hypertension, diabetes, CAD, hyperlipidemia, neuropathy, CKD, kidney stones, OA. PAST SURGICAL HISTORY: Stent placement in 2017, lithotripsy. ALLERGIES: CIPRO, LEVOFLOXACIN, PENICILLIN. FAMILY HISTORY: Noncontributory. SOCIAL HISTORY: Denies alcohol or illicit drugs. Former smoker. MEDICATIONS: Per medical chart. PHYSICAL EXAMINATION: Bilateral lower extremities with +1 to 2 pitting edema and mild erythema. No streaking, no active drainage. Left leg proximal lateral aspect with excoriations and partial-thickness ulcers to the left leg. There is no exposed tendon. No active discharge. The extremity is warm to warm. Protective sensation grossly diminished. LABORATORY DATA: WBC 8.1 on 12/15/2017, RBC of 2.7, H and H 11.2 and 34.6 ASSESSMENT: 1. Diabetes mellitus with neuropathy. 2. Venous insufficiency. 3. Left leg venous ulcer. PLAN: My recommendation for this patient is to have Unna boots and compression wraps bilaterally and have them changed every other day. His wound should do well with that. Dr. Butts from vascular surgery has seen the patient and there are no inflow concerns at this point in time. The patient can follow up with local wound care at [facility] if he is unable to follow up at [facility]. Ella Patrick DPM SR/mare , 02:04 PM , 02:11 PM
[2017-12-17] MEDS: Insulin NovoLIN Regular Correctional Sugar Inj SQ SCH ×3 (04:15→12:59)
[2017-12-17] MEDS: Heparin - SQ 10,000 UNITS/ML Vial SQ SCH ×2 (04:52→13:15)
[2017-12-17 08:53] VITALS: RESP 20
[2017-12-17] MEDS: Gabapentin 300 MG Capsule PO SCH (09:18)
[2017-12-17] MEDS: Atenolol 50 MG Tablet PO SCH (09:18)
--- NOTE | 2017-12-17 09:52 | P.PNFP ---
Subjective Interval history: No acute events overnight. Patient resting in bed comfortably. Currently on 2L O2 NC. Patient received 1 dose of lasix yesterday for dyspnea secondary to probable CHF congestion. Patient reports that he is breathing better. Denies SOB and CP. Vital signs wnl. No other complaints. Pending 's [facility] approval for SNF. <KaelTiffanytonie Devlin T - 12/17/17 09:56> Results - Labs Result diagrams: 12/16/17 08:03 12/16/17 08:03 <Susana Angel - 12/17/17 10:31> Abnormal lab results 12/15/17 12/16/17 12/16/17 Range/Units 12:50 11:45 20:18 POC Glucose 178 H 149 H (68-110) mg/dl Urine Clarity Hazy H (Clear) Urine Protein 100 H (Neg-Trace) mg/dL Urine Occult Blood Small H (Negative) Ur Leukocyte Esterase Trace H (Negative) Urine WBC 10 H (0-5) /hpf Uric Acid Crystals Few H (None) /hpf Urine Bacteria Rare H (None) /hpf Urine Mucus Few H (Occasional) /lpf Urine 12/15/17 Range/Units 12:50 Urine Color Yellow (Yellw/Straw) Urine Clarity Hazy H (Clear) Urine pH 5.0 (5.0-8.5) Ur Specific [place] 1.015 (1.002-1.035) Urine Protein 100 H (Neg-Trace) mg/dL Urine Glucose (UA) Negative (Negative) mg/dL <Susana Angel - 12/17/17 10:31> Abnormal lab results 12/15/17 12/16/17 12/16/17 Range/Units 12:50 11:45 20:18 POC Glucose 178 H 149 H (68-110) mg/dl Urine Clarity Hazy H (Clear) Urine Protein 100 H (Neg-Trace) mg/dL Urine Occult Blood Small H (Negative) Ur Leukocyte Esterase Trace H (Negative) Urine WBC 10 H (0-5) /hpf Uric Acid Crystals Few H (None) /hpf Urine Bacteria Rare H (None) /hpf Urine Mucus Few H (Occasional) /lpf Urine 12/15/17 Range/Units 12:50 Urine Color Yellow (Yellw/Straw) Urine Clarity Hazy H (Clear) Urine pH 5.0 (5.0-8.5) Ur Specific [place] 1.015 (1.002-1.035) Urine Protein 100 H (Neg-Trace) mg/dL Urine Glucose (UA) Negative (Negative) mg/dL <KaelMarilyntonie Garcia - 12/17/17 09:52> Physical Exam Vital signs: Vital Signs 12/16/17 12:00 12/16/17 16:00 12/16/17 20:00 Temperature 98.5 F 98.1 F 98.2 F Pulse Rate 70 68 78 Respiratory Rate 16 18 18 Blood Pressure 142/66 H 133/67 151/72 H Pulse Oximetry 93 L 95 97 12/17/17 00:00 12/17/17 04:00 12/17/17 06:00 Temperature 98.1 F 97.8 F Pulse Rate 72 72 80 Respiratory Rate 18 18 Blood Pressure 146/72 H 157/70 H Pulse Oximetry 97 96 12/17/17 08:00 Temperature 97.8 F Pulse Rate 63 Respiratory Rate 20 Blood Pressure 121/59 L Pulse Oximetry 97 Intake & Output 12/16/17 12/17/17 12/17/17 18:59 06:59 18:59 Intake Total 442 / 442 Output Total 1400 / 1400 Balance -958 / -958 Weight 128.2 kg Intake: Oral 442 / 442 Output: Urine 1400 / 1400 Other: # Voids 1 Date of Last Bowel Movement 12/16/17 <Susana Angel - 12/17/17 10:31> Vital Signs 12/16/17 12:00 12/16/17 16:00 12/16/17 20:00 Temperature 98.5 F 98.1 F 98.2 F Pulse Rate 70 68 78 Respiratory Rate 16 18 18 Blood Pressure 142/66 H 133/67 151/72 H Pulse Oximetry 93 L 95 97 12/17/17 00:00 12/17/17 04:00 12/17/17 06:00 Temperature 98.1 F 97.8 F Pulse Rate 72 72 80 Respiratory Rate 18 18 Blood Pressure 146/72 H 157/70 H Pulse Oximetry 97 96 12/17/17 08:00 Temperature 97.8 F Pulse Rate 63 Respiratory Rate 20 Blood Pressure 121/59 L Pulse Oximetry 97 Intake & Output 12/16/17 12/17/17 12/17/17 18:59 06:59 18:59 Intake Total 442 / 442 Output Total 1400 / 1400 Balance -958 / -958 Weight 128.2 kg Intake: Oral 442 / 442 Output: Urine 1400 / 1400 Other: # Voids 1 Date of Last Bowel Movement 12/16/17 <Tiffany Scruggs 12/17/17 09:56> - Constitutional no acute distress, obese <Tiffany Scruggs 12/17/17 09:56> - Routine HEENT Exam Head: Present: normocephalic, atraumatic <Tiffany Scruggs 12/17/17 09:56> - Routine Respiratory Exam Present: CTA bilaterally. Absent: wheezes, crackles <Tiffany Scruggs 12/17 09:56> - Routine Cardiovascular Exam Present: RRR, S1, S2. Absent: murmur, gallop, rubs <Tiffany Scruggs 09:56> - Routine Abdominal Exam Present: soft, normoactive bowel sounds <Tiffany Scruggs 12/17/17 09:56> - Routine Extremities Exam Comments: bandage on left LE. Non erythematous. <Tiffany Scruggs 12/17/17 10:13> - Routine Neurological Exam Present: alert, oriented X3 <Tiffany Scruggs 12/17/17 10:13> Assessment and Plan - Assessment (1) Cellulitis Code(s): L03.90 - Cellulitis, unspecified Status: Acute (2) Asymptomatic bacteriuria Code(s): R82.71 - Bacteriuria Status: Acute (3) Cough Code(s): R05 - Cough Status: Acute (4) Diabetes Code(s): E11.9 - Type 2 diabetes mellitus without complications Status: Acute (5) Hypertension Code(s): I10 - Essential (primary) hypertension Status: Acute (6) Coronary artery disease Code(s): I25.10 - Atherosclerotic heart disease of [place] coronary artery without angina pectoris Status: Acute (7) Neuropathy Code(s): G62.9 - Polyneuropathy, unspecified Status: Acute (8) Osteoarthritis Code(s): M19.90 - Unspecified osteoarthritis, unspecified site Status: Acute (9) DVT prophylaxis Status: Acute (10) Nutrition, metabolism, and development symptoms Code(s): R63.8 - Other symptoms and signs concerning food and fluid intake Status: Acute <Susana Angel - 12/17/17 10:31> (1) Cellulitis Code(s): L03.90 - Cellulitis, unspecified Status: Acute Plan: 82-year-old male with a history of type 2 diabetes, CAD status post stents, osteoarthritis of his knees, recent cellulitis presented to the ED on December 13 after 2 episodes of loose nonbloody stools and weakness. Patient has chronic severe lower extremity edema. No signs of osteomyelitis or sepsis. He uses a electric wheelchair for mobility. He just finished a 10 day course of an unknown antibiotic. The left lower extremity still erythematous and warm to the touch. Patient has a allergy to Cipro ofloxacin, levofloxacin, penicillin G. Due to failure of outpatient therapy, patient was started on the 2 agent regimen on December 13. He received 3 days of Bactrim DS and clindamycin. Patient's lower extremity findings were likely due to vascular insufficiency. Cellulitis was likely adequately treated prior to hospitalization. Antibiotics were discontinued -Wound care and Vascular consulted, appreciated recommendations -Unna boots and compression wraps bilaterally, have them changed every other day -no inflow concerns at this point per vascular. Can be safely followed as outpatient from vascular surgery standpoint. Dr. Orozco to arrange. -patient can follow up with local wound care at [facility], if unable to follow up there, can follow up with [facility] -Blood cultures -NGTD (2) Asymptomatic bacteriuria Code(s): R82.71 - Bacteriuria Status: Acute Plan: UA positive for trace leukocyte esterase and rare bacteria Urine culture preliminary resulted in 15-25,000 cfu/ mL gram negative rods, ID and JAIDA to follow Will consider treating depending on final urine culture results (3) Cough Code(s): R05 - Cough Status: Acute Plan: -Chest x-ray- moderate congestive failure worse from 01/11/16 - Patient was started on Pantoprazole 40 mg daily for cough possibly related to GERD vs CHF -Patient to follow up with cardiologists, Dr. Hills for outpatient Echo (4) Diabetes Code(s): E11.9 - Type 2 diabetes mellitus without complications Status: Acute Plan: -Accuchecks over the past 24 hours 101,178,109,149, 104 -glipizide discontinued due to hypoglycemia, continue to hold upon discharge, patient will be going to SNF where diet will be controlled -Low-dose sliding scale insulin -Continue Januvia -Diabetic diet (5) Hypertension Code(s): I10 - Essential (primary) hypertension Status: Acute Plan: Stable. -Continue home atenolol (6) Coronary artery disease Code(s): I25.10 - Atherosclerotic heart disease of [place] coronary artery without angina pectoris Status: Acute Plan: Patient has a history of CAD status post stenting. -ACS workup negative, stable troponin at 0.30 likely due to KESHAWN on CKD -Continue home atenolol and Plavix (7) Neuropathy Code(s): G62.9 - Polyneuropathy, unspecified Status: Acute Plan: Patient has diabetic neuropathy in the lower extremities. -Continue home gabapentin (8) Osteoarthritis Code(s): M19.90 - Unspecified osteoarthritis, unspecified site Status: Acute Plan: Patient has a history of osteoarthritis in bilateral knees. -Continue home tramadol (9) DVT prophylaxis Status: Acute Plan: -Heparin 5000 units SQ every 8 hours -Defer SCDs due to severe bilateral lower extremity edema (10) Nutrition, metabolism, and development symptoms Code(s): R63.8 - Other symptoms and signs concerning food and fluid intake Status: Acute Plan: -Diabetic diet Fluids: none vitals q4h, monitor I & Os DVT ppx: Heparin <Tiffany Scrgugs - 12/17/17 10:20> - Assessment and Plan Discharge Planning: Patient will [facility] be discharged to [facility] <Tiffany Scruggs - 12/17/17 10:13> - Attending Attestation Patient seen and examined, discussed with the medicine team. I agree with the findings and with the plan. <Susana Angel - 12/17/17 10:31>
[2017-12-17 16:39] VITALS: BP 156/60; PULSE 76; TEMP 98; O2SAT 91
--- NOTE | 2017-12-17 17:28 | P.DS ---
Date of admission: 12/13/17 11:13 Primary care physician: UNKNOWN Brief History from admission: 82-year-old gentleman with significant past medical history reported to the ED after 2 bouts of diarrhea and generalized weakness. Patient reports that yesterday he had no appetite. He felt abdominal pressure yesterday afternoon and had loose, brown stool. It was nonbloody. Later in the evening, patient was trying to transfer from his electric wheelchair to his bed and slid to the floor due to generalized weakness. He uses an electric wheel chair for mobility and this has not happened before. In the middle of the night patient then loss control of bowels in bed. The stool was more loose than previous but nonbloody. Patient just finished a 10 day course of antibiotic yesterday for cellulitis of the left leg. He does not know the name of the antibiotic. He denies pain in the left leg but reports chronic edema. Patient denies vomiting , headaches, numbness or tingling of his hands or feet, change in vision. He also denies current weakness. Past medical history: Hypertension Diabetes CAD status post coronary angiograms and stenting Hyperlipidemia Diabetic neuropathy CKD- patient was unaware of this but this info was pulled from chart History of previous UTIs Kidney stones knee osteoarthritis Past surgical history: Stent placement in December 2016 Lithotripsy Allergies: ciprofloxacin levofloxacin penicillin (HIVES) Family history: Father: Heart disease Mother: Hypertension Social history: lives at [facility] in independent living with dementia at [facility] mostly sedentary DS: Diagnosis - Discharge Diagnosis (1) Cellulitis Status: Acute (2) Asymptomatic bacteriuria Status: Acute (3) Cough Status: Acute (4) Diabetes Status: Acute (5) Hypertension Status: Acute (6) Coronary artery disease Status: Acute (7) Neuropathy Status: Acute (8) Osteoarthritis Status: Acute (9) DVT prophylaxis Status: Acute (10) Nutrition, metabolism, and development symptoms Status: Acute DS: Medications - Discharge Medications Prescriptions: omeprazole 20 mg PO DAILY 30 Days #30 cap DS: Summary Hospital Course: 82-year-old male with a history of type 2 diabetes, CAD status post stents, osteoarthritis of his knees, recent cellulitis presented to the ED on December 13 after 2 episodes of loose nonbloody stools and weakness. He was found to have a KESHAWN and hyperkalemia. Due to his cardiovascular history, ACS workup was ordered. Troponins were elevated but stable and this was likely due to his metabolic disturbance. His electrolytes have been corrected. He also had edema of his lower extremities and erythema on his left lower extremity. He had just completed a 10 day course of unknown antibiotics as an outpatient and the lower extremity was thought to still be infected. He was started on clindamycin and Bactrim in completed 3 days of these medications. Wound care was consulted. And from their recommendations podiatry and vascular surgery have been consulted. Antibiotics were discontinued on December 16 due to clinical suspicion that the lower extremity edema and erythema was not infected and likely due to poor vasculature. Patient also had hypoglycemia on 12/16. His glipizide was discontinued. Patient also has had severe reflux so a PPI was started. Patient was determined stable and discharged on 12/17 to SNF. patient was to follow up with local wound care at [facility], if unable to follow up there, to follow up with [facility]. - Time Spent with Patient Total time spent providing and/or coordinating discharge services: Less than 30 minutes - Quality: VTE Deep Vein Thrombosis/Pulmonary Embolism Present on Admission: No Exam Vital signs: Vital Signs 12/16/17 20:00 12/17/17 00:00 12/17/17 04:00 Temperature 98.2 F 98.1 F 97.8 F Pulse Rate 78 72 72 Respiratory Rate 18 18 18 Blood Pressure 151/72 H 146/72 H 157/70 H Pulse Oximetry 97 97 96 Pulse Oximetry [Resting on Room Air] 12/17/17 06:00 12/17/17 08:00 12/17/17 10:41 Temperature 97.8 F Pulse Rate 80 63 Respiratory Rate 20 Blood Pressure 121/59 L Pulse Oximetry 97 Pulse Oximetry [Resting on Room Air] 91 L 12/17/17 12:00 12/17/17 16:00 Temperature 97.2 F L 98 F Pulse Rate 69 76 Respiratory Rate 20 20 Blood Pressure 147/63 H 156/60 H Pulse Oximetry 95 91 L Pulse Oximetry [Resting on Room Air] Intake & Output 12/16/17 12/17/17 12/17/17 18:59 06:59 18:59 Intake Total 442 / 442 Output Total 1400 / 1400 Balance -958 / -958 Weight 128.2 kg Intake: Oral 442 / 442 Output: Urine 1400 / 1400 Other: # Voids 1 Date of Last Bowel Movement 12/16/17 Results Procedures completed during hospitalization: None Labs on day of discharge: Labs from last 24 hours 12/17/17 12/17/17 12/17/17 12:23 08:05 03:31 POC Glucose 116 H 84 104 Urine Color Urine Clarity Urine pH Ur Specific [place] Urine Protein Urine Glucose (UA) Urine Ketones Urine Occult Blood Urine Nitrate Urine Bilirubin Urine Urobilinogen Ur Leukocyte Esterase Urine RBC Urine WBC Uric Acid Crystals Urine Bacteria Hyaline Casts Urine Mucus Micro UA Comment Urine Culture Comments 12/16/17 12/15/17 20:18 12:50 POC Glucose 149 H Urine Color Yellow Urine Clarity Hazy H Urine pH 5.0 Ur Specific [place] 1.015 Urine Protein 100 H Urine Glucose (UA) Negative Urine Ketones Negative Urine Occult Blood Small H Urine Nitrate Negative Urine Bilirubin Negative Urine Urobilinogen Less than 2 Ur Leukocyte Esterase Trace H Urine RBC 3 Urine WBC 10 H Uric Acid Crystals Few H Urine Bacteria Rare H Hyaline Casts 1 Urine Mucus Few H Micro UA Comment Culture indicated Urine Culture Comments Culture indicated Preliminary micro results at discharge 12/13/17 14:38 Aerobic Blood Culture - Preliminary Blood - Peripheral No growth in 4 days Anaerobic Blood Culture - Preliminary No growth in 4 days 12/13/17 14:43 Aerobic Blood Culture - Preliminary Blood - Peripheral No growth in 4 days Anaerobic Blood Culture - Preliminary No growth in 4 days 12/15/17 12:50 Urine Culture - Preliminary Random Urine gram negative rods - Impressions ITS Impressions Chest X-Ray 12/16/17 00:00 CONCLUSION: Moderate congestive failure worse from 01/11/2016 Discharge Plan - Discharge Disposition Patient Disposition: Discharge to SNF - Discharge Condition Condition: Stable - Discharge Order Discharge Orders: Discharge Order (Routine); Ordered 12/17/17 Ordered By: Geoff Mooney - Discharge Details Anticipated Discharge Date: 12/15/17 - Physicians Team Primary Care Provider: UNKNOWN, Attending Provider: Susana Angel Other Providers: Adama Butts MD ; Aurea Colvin
== END 2017-12-17 16:40 ==
LOC: NEPE 09:23 → NEDA 11:13 → N05 13:18
PROVIDERS: ADMIT Family Medicine; ATTEND Family Medicine

== ENCOUNTER 2018-01-04 10:26 | Inpatient (IN) ==
[2018-01-04 12:15] LABS: Baso # (Auto) 0.1 th/mm3 (0.0-0.2); Baso % (Auto) 0.5 % (0.0-2.0); Eos # (Auto) 0.1 th/mm3 (0.0-0.4); Eos % (Auto) 1.3 % (0.0-4.0); Hematocrit 27.1 % (39.0-51.0); Hemoglobin 8.8 gm/dL (13.0-17.0); Lymph % (Auto) 9.5 % (9.0-44.0); Mean Corpuscular HGB Conc 32.5 % (32.0-36.0); Mean Corpuscular Hemoglobin 31.3 pg (27.0-34.0); Mean Corpuscular Volume 96.3 fL (80.0-100.0); Mean Platelet Volume 8.4 fL (7.0-11.0); Mono # (Auto) 1.4 th/mm3 (0.0-0.9); Neut # (Auto) 8.2 th/mm3 (1.8-7.7); Neut % (Auto) 75.7 % (16.0-70.0); Platelet Count 227 th/mm3 (150-450); Red Blood Count 2.81 mil/mm3 (4.50-5.90); Red Cell Distribution Width 15.3 % (11.6-17.2); White Blood Count 10.8 th/mm3 (4.0-11.0)
--- NOTE | 2018-01-04 12:27 | XR ---
EXAM DATE: 01/04/2018 12:00 AM EDT AGE/SEX: 82 years / Male INDICATIONS: . Short of breath and pain in middle of chest for 6 days, edema in lower extremities CLINICAL DATA: This is the patient's initial encounter. Patient reports that signs and symptoms have been present for 4 - 6 days and indicates a pain score of Nonresponsive. MEDICAL/SURGICAL HISTORY: Cardiovascular disease. Congestive heart failure. Hypertension. Cor onary artery stent. COMPARISON: [facility] [place], CHEST 2V PA&LAT, 12/16/2017. . FINDINGS: Heart is enlarged. Moderate interstitial changes are evident, progressed in the interval. Minimal bib asilar changes. Possible small pleural effusions. CONCLUSION: Moderate congestive failure with probable trace pleural effusions. Findings have progressed from the comparison study. Electronically signed by: Hadley Adame MD 01/04/2018 12:26 PM EDT
[2018-01-04 12:41] LABS: Anion Gap 10 meq/L (5-15); Aspartate Aminotransferase 55 U/L (15-37); Blood Urea Nitrogen 94 mg/dL (7-18); Calcium 8.2 mg/dL (8.5-10.1); Carbon Dioxide 24.5 meq/L (21.0-32.0); Chloride 104 meq/L (98-107); Glomerular Filtration Rate 17 mL/min (>89); Glucose,Random 230 mg/dL (74-106); Potassium 4.7 meq/L (3.5-5.1); Sodium 138 meq/L (136-145)
[2018-01-04 12:46] LABS: Alanine Aminotransferase 51 U/L (12-78); Alkaline Phosphatase 118 U/L (45-117)
--- NOTE | 2018-01-04 13:37 | ED ---
HPI General Chief complaint: Extremity Problem,Nontraumatic Stated complaint: Hypotension Poss Time Seen by Provider: 01/04/18 12:47 Source: patient Mode of arrival: ambulatory Limitations: no limitations History of Present Illness HPI Narrative: 82-year-old male with a history of diabetes mellitus type 2, hypertension, hyperlipidemia, on Plavix presents to the emergency department evaluation of bilateral lower extremity swelling that is been present for 10 days. She states that the swelling increased today so decided to come in today for evaluation. Patient denies pain to the area. Says his legs have been swollen before however, this is the most it has been swollen. She denies fever , chills, shortness of breath, chest pain, abdominal pain, nausea, vomiting diarrhea. He states compliance with his medication. He currently lives in independent facility and lives alone. He denies history of congestive heart failure but states he has had 2 stents placed in his RCA about [address] Hills. His last appointment was 1 month ago and his next appointment is January [address] Hills. MD Complaint: Reports extremity swelling Onset (ago): day(s) Pain Consistency: constant Location: Reports left, right and lower extremity Radiation: Reports none Associated symptoms: Denies chest pain, shortness of breath, fever, myalgias and arthralgias Related Data Home Medications Medication Instructions Recorded Confirmed allopurinol 100 mg PO DAILY 12/13/17 01/04/18 atenolol 50 mg PO DAILY 12/13/17 01/04/18 clopidogrel 75 mg PO DAILY 12/13/17 01/04/18 gabapentin 300 mg PO BID 12/13/17 01/04/18 lisinopril 20 mg PO DAILY 12/13/17 01/04/18 tramadol 50 mg PO QID PRN 12/13/17 01/04/18 acetaminophen [Tylenol] 650 mg PO Q4H PRN 01/04/18 01/04/18 ascorbic acid (vitamin C) [Vitamin 500 mg PO HS 01/04/18 01/04/18 C] bisacodyl [Dulcolax (bisacodyl)] 10 mg MN HS PRN 01/04/18 01/04/18 cranberry extract 425 mg PO DAILY 01/04/18 01/04/18 furosemide [Lasix] 40 mg PO DAILY 01/04/18 01/04/18 ipratropium bromide 1 spray INTRANASAL BID 01/04/18 01/04/18 magnesium hydroxide [Milk of 30 ml PO DAILY PRN 01/04/18 01/04/18 Magnesia] sitagliptin [Januvia] 25 mg PO DAILY 01/04/18 01/04/18 Previous Rx's Medication Instructions Recorded omeprazole 20 mg PO DAILY 30 Days #30 cap 12/15/17 Allergies Allergy/AdvReac Type Severity Reaction Status Date / Time ciprofloxacin Allergy Severe Hives Verified 01/04/18 11:13 levofloxacin Allergy Severe Swelling Verified 01/04/18 11:13 of Lip/Tongue/Throat penicillin G Allergy Severe Hives Verified 01/04/18 11:13 rofecoxib Allergy Severe Hives Verified 01/04/18 11:13 Review of Systems ROS: all other systems reviewed are negative [facility] Medical History Medical History CAD (coronary artery disease) (Acute) Cataract (Acute) HTN (hypertension) (Acute) Hyperlipidemia (Acute) Type 2 diabetes mellitus (Acute) Social History Social History Substance History: No History of Abuse Second Hand Smoke Exposure: No Smoking Status: Former smoker Tobacco Type: Cigarettes How Often Do You Have a Drink Containing Alcohol: Never Recent Travel in [place] within the Last 8 Weeks: No Recent Out of Country Travel within the Last 8 Weeks: No Immunization History Tetanus Immunization: >5 Years Exam Narrative Exam Narrative: GENERAL: WD, WN in NAD SKIN: Focused skin assessment warm/dry. Bilateral lower extremities with excoriations present. No edema, no tenderness palpation of the calves. Neurovascularly intact. +1-2 pitting edema. HEAD: Atraumatic. Normocephalic. EYES: Pupils equal and round. No scleral icterus. No injection or drainage. ENT: No nasal bleeding or discharge. Mucous membranes pink and moist. NECK: Trachea midline. No JVD. No lymphadenopathy CARDIOVASCULAR: Regular rate and rhythm. No murmur appreciated. RESPIRATORY: No accessory muscle use. Upper lung nj with wheezing. GASTROINTESTINAL: Abdomen soft, non-tender, nondistended. Hepatic and splenic margins not palpable. Abdomen protuberant. No CVA tenderness MUSCULOSKELETAL: No obvious deformities. No clubbing. No cyanosis. No edema. NEUROLOGICAL: Awake and alert. No obvious cranial nerve deficits. Motor grossly within normal limits. Normal speech. PSYCHIATRIC: Appropriate mood and affect; insight and judgment normal. Course Initial Documented Vital Signs Temperature 98.1 F 01/04/18 11:14 Pulse Rate 75 01/04/18 11:14 Respiratory Rate 22 01/04/18 11:14 Blood Pressure 109/55 L 01/04/18 11:14 Pulse Oximetry 96 01/04/18 11:14 Last Documented Vital Signs Temperature 98.2 F 01/04/18 17:04 Pulse Rate 67 01/04/18 17:08 Respiratory Rate 12 01/04/18 17:08 Blood Pressure 113/50 L 01/04/18 17:04 Pulse Oximetry 99 01/04/18 17:07 Medical Decision Making MDM Narrative Medical decision making narrative: 82-year-old male with history of diabetes, hyperlipidemia, hypertension presents to the emergency department for evaluation of bilateral lower extremity swelling that has worsened over the last 10 days. He denies any other symptoms to include pain to the lower extremities. States compliance with medication to include Plavix. States he did not take Lasix today because he had some mild hypotension. Vital signs demonstrate blood pressure 109/55, heart rate 66. His exam findings demonstrate a well-developed, morbidly obese 82-year-old male in no acute distress. He was initially on oxygen 3 L/min nasal cannula, weaned off and he remained at 95% on room air. 500 cc IV fluids administered as patient became hypotensive at 95/58. He remains asymptomatic however. Denies chest pain, shortness of breath. We will keep a close eye on his blood pressure and status. Unable to give nitro for the chest congestion because of the blood pressure. Pt received approximately 300cc IVF. Only mild improvement in BP to 97/54. He has worsening anemia, kidney function, hypotension, and CHF exacerbation. I spoke with Dr. Mccrary who agreed to the admission. Medical Screen Exam Complete: Yes Emergency Medical Condition: Yes Differential Diagnosis Differential Diagnosis: Congestive heart failure exacerbation, COPD exacerbation , ACS Lab Data Result diagrams: 01/04/18 13:00 01/04/18 11:00 Lab Results 01/04/18 01/04/18 01/04/18 Range/Units 11:00 11:00 11:00 WBC 10.8 (4.0-11.0) th/mm3 RBC 2.81 L (4.50-5.90) mil/mm3 Hgb 8.8 L (13.0-17.0) gm/dL Hct 27.1 L (39.0-51.0) % MCV 96.3 (80.0-100.0) fL MCH 31.3 (27.0-34.0) pg MCHC 32.5 (32.0-36.0) % RDW 15.3 (11.6-17.2) % Plt Count 227 (150-450) th/mm3 MPV 8.4 (7.0-11.0) fL Neut % (Auto) 75.7 H (16.0-70.0) % Lymph % (Auto) 9.5 (9.0-44.0) % Jay % (Auto) 13.0 H (0.0-8.0) % Eos % (Auto) 1.3 (0.0-4.0) % Baso % (Auto) 0.5 (0.0-2.0) % Neut # (Auto) 8.2 H (1.8-7.7) th/mm3 Lymph # (Auto) 1.0 (1.0-4.8) th/mm3 Jay # (Auto) 1.4 H (0.0-0.9) th/mm3 Eos # (Auto) 0.1 (0.0-0.4) th/mm3 Baso # (Auto) 0.1 (0.0-0.2) th/mm3 WBC Differential . Differential Comment Auto diff final PT (9.8-11.6) sec INR Ratio APTT (24.3-30.1) sec Sodium 138 (136-145) meq/L Potassium 4.7 (3.5-5.1) meq/L Chloride 104 (98-107) meq/L Carbon Dioxide 24.5 (21.0-32.0) meq/L Anion Gap 10 (5-15) meq/L BUN 94 H (7-18) mg/dL Creatinine 3.40 H (0.60-1.30) mg/dL Estimated GFR 17 L (>89) mL/min POC Glucose (68-110) mg/dl Random Glucose 230 H (74-106) mg/dL Calcium 8.2 L (8.5-10.1) mg/dL Magnesium (1.5-2.5) mg/dL Total Bilirubin 0.4 (0.2-1.0) mg/dL AST 55 H (15-37) U/L ALT 51 (12-78) U/L Alkaline Phosphatase 118 H (45-117) U/L Troponin I (0.02-0.05) ng/mL B-Natriuretic Peptide 948 H (0-100) pg/mL Total Protein 7.0 (6.4-8.2) g/dL Albumin 2.0 L (3.4-5.0) g/dL 01/04/18 01/04/18 01/04/18 Range/Units 11:00 13:00 13:00 WBC 10.3 (4.0-11.0) th/mm3 RBC 2.69 L (4.50-5.90) mil/mm3 Hgb 8.8 L (13.0-17.0) gm/dL Hct 25.6 L (39.0-51.0) % MCV 95.3 (80.0-100.0) fL MCH 32.6 (27.0-34.0) pg MCHC 34.2 (32.0-36.0) % RDW 14.9 (11.6-17.2) % Plt Count 216 (150-450) th/mm3 MPV 8.5 (7.0-11.0) fL Neut % (Auto) 76.1 H (16.0-70.0) % Lymph % (Auto) 9.1 (9.0-44.0) % Jay % (Auto) 13.2 H (0.0-8.0) % Eos % (Auto) 1.2 (0.0-4.0) % Baso % (Auto) 0.4 (0.0-2.0) % Neut # (Auto) 7.8 H (1.8-7.7) th/mm3 Lymph # (Auto) 0.9 L (1.0-4.8) th/mm3 Jay # (Auto) 1.4 H (0.0-0.9) th/mm3 Eos # (Auto) 0.1 (0.0-0.4) th/mm3 Baso # (Auto) 0.0 (0.0-0.2) th/mm3 WBC Differential . Differential Comment Auto diff final PT 12.2 H (9.8-11.6) sec INR 1.2 Ratio APTT 26.8 (24.3-30.1) sec Sodium (136-145) meq/L Potassium (3.5-5.1) meq/L Chloride (98-107) meq/L Carbon Dioxide (21.0-32.0) meq/L Anion Gap (5-15) meq/L BUN (7-18) mg/dL Creatinine (0.60-1.30) mg/dL Estimated GFR (>89) mL/min POC Glucose (68-110) mg/dl Random Glucose (74-106) mg/dL Calcium (8.5-10.1) mg/dL Magnesium 1.8 (1.5-2.5) mg/dL Total Bilirubin (0.2-1.0) mg/dL AST (15-37) U/L ALT (12-78) U/L Alkaline Phosphatase (45-117) U/L Troponin I 0.12 H (0.02-0.05) ng/mL B-Natriuretic Peptide (0-100) pg/mL Total Protein (6.4-8.2) g/dL Albumin (3.4-5.0) g/dL 01/04/18 01/04/18 01/04/18 Range/Units 13:05 15:21 17:17 WBC (4.0-11.0) th/mm3 RBC (4.50-5.90) mil/mm3 Hgb (13.0-17.0) gm/dL Hct (39.0-51.0) % MCV (80.0-100.0) fL MCH (27.0-34.0) pg MCHC (32.0-36.0) % RDW (11.6-17.2) % Plt Count (150-450) th/mm3 MPV (7.0-11.0) fL Neut % (Auto) (16.0-70.0) % Lymph % (Auto) (9.0-44.0) % Jay % (Auto) (0.0-8.0) % Eos % (Auto) (0.0-4.0) % Baso % (Auto) (0.0-2.0) % Neut # (Auto) (1.8-7.7) th/mm3 Lymph # (Auto) (1.0-4.8) th/mm3 Jay # (Auto) (0.0-0.9) th/mm3 Eos # (Auto) (0.0-0.4) th/mm3 Baso # (Auto) (0.0-0.2) th/mm3 WBC Differential Differential Comment PT (9.8-11.6) sec INR Ratio APTT (24.3-30.1) sec Sodium (136-145) meq/L Potassium (3.5-5.1) meq/L Chloride (98-107) meq/L Carbon Dioxide (21.0-32.0) meq/L Anion Gap (5-15) meq/L BUN (7-18) mg/dL Creatinine (0.60-1.30) mg/dL Estimated GFR (>89) mL/min POC Glucose 476 H* 234 H 195 H (68-110) mg/dl Random Glucose (74-106) mg/dL Calcium (8.5-10.1) mg/dL Magnesium (1.5-2.5) mg/dL Total Bilirubin (0.2-1.0) mg/dL AST (15-37) U/L ALT (12-78) U/L Alkaline Phosphatase (45-117) U/L Troponin I (0.02-0.05) ng/mL B-Natriuretic Peptide (0-100) pg/mL Total Protein (6.4-8.2) g/dL Albumin (3.4-5.0) g/dL Imaging Data Radiologist's impression: Chest X-Ray 01/04/18 00:00 CONCLUSION: Moderate congestive failure with probable trace pleural effusions. Findings have progressed from the comparison study. Discharge Plan Discharge Disposition Patient Disposition: 30 Still Patient Discharge Condition Condition: Stable Discharge Details Diagnosis: KESHAWN (acute kidney injury), Hyperglycemia, Pedal edema, Congestive heart failure Physicians Team ED Provider: Shola Pozo ED Midlevel Provider: Olga Lidia Talbert Primary Care Provider: UNKNOWN, Attending Provider: Meagan Mccrary Other Providers: Jeronimo Talamantes Guillermo Discharge Interventions Interventions: ED Discharge Assessment Last Done: 01/04/18 15:30 Status ED Status: Left Department Discharge Information Discharge Date/Time: 01/04/18 15:30
[2018-01-04 13:39] LABS: Baso % (Auto) 0.4 % (0.0-2.0); Eos # (Auto) 0.1 th/mm3 (0.0-0.4); Eos % (Auto) 1.2 % (0.0-4.0); Hematocrit 25.6 % (39.0-51.0); Hemoglobin 8.8 gm/dL (13.0-17.0); Lymph # (Auto) 0.9 th/mm3 (1.0-4.8); Lymph % (Auto) 9.1 % (9.0-44.0); Mean Corpuscular HGB Conc 34.2 % (32.0-36.0); Mean Corpuscular Hemoglobin 32.6 pg (27.0-34.0); Mean Corpuscular Volume 95.3 fL (80.0-100.0); Mean Platelet Volume 8.5 fL (7.0-11.0); Mono # (Auto) 1.4 th/mm3 (0.0-0.9); Mono % (Auto) 13.2 % (0.0-8.0); Neut # (Auto) 7.8 th/mm3 (1.8-7.7); Neut % (Auto) 76.1 % (16.0-70.0); Platelet Count 216 th/mm3 (150-450); Red Blood Count 2.69 mil/mm3 (4.50-5.90); Red Cell Distribution Width 14.9 % (11.6-17.2); White Blood Count 10.3 th/mm3 (4.0-11.0)
[2018-01-04 13:44] LABS: Activated Partial Thrombo Time 26.8 sec (24.3-30.1); INR 1.2 Ratio; Prothrombin Time 12.2 sec (9.8-11.6)
[2018-01-04 13:58] LABS: Magnesium 1.8 mg/dL (1.5-2.5)
[2018-01-04 14:01] LABS: Troponin I 0.12 ng/mL (0.02-0.05)
[2018-01-04] MEDS ORDERED: Sodium Chlor 0.9% Inj 500 ML IV.SIG SCH (15:00)
[2018-01-04] MEDS ORDERED: Bisacodyl 10 MG Supp RECTAL PRN (15:03)
[2018-01-04] MEDS ORDERED: Dextrose 50% in Water 50 ML Vial IV.PUSH PRN (15:09)
--- NOTE | 2018-01-04 15:29 | P.HPCC ---
History of Present Illness Service: Critical care Primary Care Physician: UNKNOWN Chief Complaint: Leg swelling History of Present Illness: 82yM presenting with bilateral lower extremity edema x 1 week. The patient reports that he has noticed bilateral leg swelling starting approximately 7 days ago and getting worse over the past 2-3 days. He denies leg pain, chest pain, palpitations, dyspnea, or orthopnea. He is unsure if he has recently gained weight. He lives at an independent living facility and reports that he did not take his Lasix this morning because his blood pressure was low. In the ED, he was found to have increased pulmonary vascular congestion on CXR, required supplemental O2 via nasal cannula, and was also found to have an acute kidney injury. Critical care was consulted for complexity of case and concern for borderline MAP. History of CAD, follows with Dr. Hills of cardiology, unclear if he's been diagnosed with CHF in the past. Family history significant for parents with heart disease. - Diagnosis (1) Acute exacerbation of CHF (congestive heart failure) (2) KESHAWN (acute kidney injury) (3) Hyperglycemia (4) Elevated troponin (5) Pulmonary edema Inpatient Certification: I certify that the inpatient services were ordered in accordance with Medicare regulations governing the order. This includes certification that hospital inpatient services are reasonable and necessary and in the case of services not specified as inpatient-only under 42 CFR 419.22(n), that they are appropriately provided as inpatient services in accordance to with the 2-midnight benchmark under 43 CFR 412.3(e) Estimated Total Length of Stay (Days): 3 Plans for Post Hospital Care: SNF Review of Systems All other systems reviewed negative except as stated in HPI Constitutional: Denies chills, Denies fever(s) Eyes: Denies blurry vision Cardiovascular: Denies chest pain Respiratory: Denies cough, Denies shortness of breath Gastrointestinal: Denies abdominal pain Genitourinary: Denies decreased urination Comments: (+) leg swelling Skin/Breast: Denies rash Neurologic: Denies confusion Endocrine: Denies increased thirst PMFSH - History History Provided By: Patient - Medical History Medical History: Medical History (Last Reviewed 01/04/18 @ 15:42 by Meagan Mccrary DO) Hyperlipidemia CAD (coronary artery disease) Cataract HTN (hypertension) Type 2 diabetes mellitus - Surgical History Surgical History: Surgical History (Last Reviewed 01/04/18 @ 15:42 by Meagan Mccrary DO) Stented coronary artery - Tobacco History Second Hand Smoke Exposure: No Tobacco Use In Past 30 Days: No Smoking Status: Former smoker Tobacco Type: Cigarettes - Alcohol History How Often Do You Have a Drink Containing Alcohol: Never - Substance Use History Substance History: No History of Abuse - Travel History Recent Travel in the [place] Within the Last 8 Weeks: No Recent Travel Out of the Country Within the Last 8 Weeks: No - Immunization History Tetanus Immunization: >5 Years Medications and Allergies Active Medications: Active Medications Acetaminophen (Tylenol) 650 mg PO Q4H PRN PRN Reason: Pain/Fever Al Hydroxide/Mg Hydroxide (Milk Of Magnesia Liq) 30 ml PO Q12H PRN PRN Reason: Mild Constipation Albuterol (Albuterol Neb (Sunshine)) 2.5 mg NEB Q2HR NEB PRN PRN Reason: SHORTNESS OF BREATH/WHEEZING Albuterol (Duoneb Neb (Prn)) 1 ampul NEB Q6HR NEB SUNSHINE Atenolol (Tenormin) 50 mg PO DAILY SUNSHINE Bisacodyl (Dulcolax Supp) 10 mg RECTAL DAILY PRN PRN Reason: SEVERE CONSITIPATION Chlorhexidine Gluconate (Chlorhexidine 2% Cloth) 3 pack TOPICAL DAILY@0400 SUNSHINE Stop: 01/10/18 03:59 Chlorhexidine Gluconate (Chlorhexidine 2% Cloth) 3 pack TOPICAL DAILY@0400 PRN PRN Reason: Extra cloth needed Stop: 01/10/18 03:59 Clopidogrel Bisulfate (Plavix) 75 mg PO DAILY SUNSHINE Dextrose (D50w Vial) 50 ml IV.PUSH UNSCH PRN PRN Reason: PER HYPOGLYCEMIA PROTOCOL Furosemide (Lasix) 40 mg PO DAILY SUNSHINE Gabapentin (Neurontin) 300 mg PO BID SUNSHINE Glucagon (Glucagon Inj) 1 mg OTHER PRN PRN PRN Reason: for Hypoglycemia Protocol Heparin Sodium (Porcine) (Heparin Inj) 5,000 units SQ Q8H SUNSHINE Sodium Chloride (Ns Inj) 500 mls @ 0 mls/hr IV.SIG BOLUS SUNSHINE Last Infusion: 01/04/18 15:13 Dose: Infused Insulin Human Regular (Novolin R Correctional Sugar Inj) 0 units SQ ACHS AND 3AM SUNSHINE; Protocol Ipratropium [place] (Atrovent Neb) 0.5 mg NEB Q2HR NEB PRN PRN Reason: WHEEZING Lactulose (Lactulose Liq) 30 ml PO DAILY PRN PRN Reason: SEVERE CONSITIPATION Non-Formulary Medication (Ipratropium [place]ham [Ipratropium Calliham]) 1 spray EACH NARE BID [facility] Non-Formulary Medication (Omeprazole [Omeprazole]) 20 mg PO DAILY [facility] Ondansetron HCl (Zofran Inj) 4 mg IV.PUSH Q6H PRN PRN Reason: NAUSEA OR VOMITING Senna/Docusate Sodium (Jennifer-Colace) 1 tab PO BID [facility] Sennosides (Senokot) 17.2 mg PO Q12H PRN PRN Reason: Moderate Constipation Sodium Chloride (Ns Flush) 2 ml IV.FLUSH UNSCH PRN PRN Reason: FLUSH AFTER USING IV ACCESS Last Admin: 01/04/18 14:14 Dose: 2 ml Sodium Chloride (Ns Flush) 2 ml IV.FLUSH PRN PRN PRN Reason: FLUSH AFTER USING IV ACCESS Sodium Chloride (Ns Flush) 2 ml IV.FLUSH BID [facility] Allergies Allergy/AdvReac Type Severity Reaction Status Date / Time ciprofloxacin Allergy Severe Hives Verified 01/04/18 11:13 levofloxacin Allergy Severe Swelling Verified 01/04/18 11:13 of Lip/Tongue/Throat penicillin G Allergy Severe Hives Verified 01/04/18 11:13 rofecoxib Allergy Severe Hives Verified 01/04/18 11:13 Home Medications Medication Instructions Recorded Confirmed Type allopurinol 100 mg PO DAILY 12/13/17 01/04/18 History atenolol 50 mg PO DAILY 12/13/17 01/04/18 History clopidogrel 75 mg PO DAILY 12/13/17 01/04/18 History gabapentin 300 mg PO BID 12/13/17 01/04/18 History lisinopril 20 mg PO DAILY 12/13/17 01/04/18 History tramadol 50 mg PO QID PRN 12/13/17 01/04/18 History acetaminophen [Tylenol] 650 mg PO Q4H PRN 01/04/18 01/04/18 History ascorbic acid (vitamin C) [Vitamin 500 mg PO HS 01/04/18 01/04/18 History C] bisacodyl [Dulcolax (bisacodyl)] 10 mg [place] HS PRN 01/04/18 01/04/18 History cranberry extract 425 mg PO DAILY 01/04/18 01/04/18 History furosemide [Lasix] 40 mg PO DAILY 01/04/18 01/04/18 History ipratropium bromide 1 spray INTRANASAL BID 01/04/18 01/04/18 History magnesium hydroxide [Milk of 30 ml PO DAILY PRN 01/04/18 01/04/18 History Magnesia] sitagliptin [Januvia] 25 mg PO DAILY 01/04/18 01/04/18 History Results - Labs CBC & Chem 7: 01/04/18 13:00 01/04/18 11:00 Labs: Short CBC 01/04/18 01/04/18 Range/Units 11:00 13:00 WBC 10.8 10.3 (4.0-11.0) th/mm3 Hgb 8.8 L 8.8 L (13.0-17.0) gm/dL Hct 27.1 L 25.6 L (39.0-51.0) % Plt Count 227 216 (150-450) th/mm3 BMP 01/04/18 11:00 Sodium 138 Potassium 4.7 Chloride 104 Carbon Dioxide 24.5 BUN 94 H Creatinine 3.40 H Calcium 8.2 L Cardiac Enzymes 01/04/18 Range/Units 11:00 Troponin I 0.12 H (0.02-0.05) ng/mL Liver Function 01/04/18 Range/Units 11:00 Total Bilirubin 0.4 (0.2-1.0) mg/dL AST 55 H (15-37) U/L ALT 51 (12-78) U/L Alkaline Phosphatase 118 H (45-117) U/L Albumin 2.0 L (3.4-5.0) g/dL - Imaging Impressions Chest X-Ray 01/04/18 00:00 CONCLUSION: Moderate congestive failure with probable trace pleural effusions. Findings have progressed from the comparison study. Exam Vital signs: Vital Signs 01/04/18 11:14 01/04/18 12:57 01/04/18 14:15 Temperature 98.1 F 97.7 F 97.9 F Pulse Rate 75 66 68 Respiratory Rate 22 20 22 Blood Pressure 109/55 L 98/55 L 95/58 L Pulse Oximetry 96 98 97 01/04/18 15:04 Temperature 97.9 F Pulse Rate 68 Respiratory Rate 22 Blood Pressure 102/55 L Pulse Oximetry 97 Intake & Output 10/11/18 10/12/18 10/12/18 18:59 06:59 18:59 Intake Total 500 / 500 Balance 500 / 500 Weight 122.47 kg Intake: IV 500 / 500 NS Inj 500 ML @ Wide Open IV. 500 / 500 SIG BOLUS SUNSHINE Rx#:[id number] Narrative: GEN: Elderly male sitting up in bed, no acute distress HEENT: NCAT, PERRL NECK: Trachea midline, no JVD CARDIO: Regular rate and rhythm, (+) murmur PULM: O2 ssats mid 90s on 2L NC, faint expiratory wheeze in left mid-lung field , diminished breath sounds at bases ABD/GI: Soft and non-tender in all quadrants EXT/MSK: 2+ pitting edema to groin bilaterally SKIN: Warm and well-perfused NEURO: A&Ox3, conversational, moving all extremities, no focal neuro deficits PSYCH: Appropriate affect Caprini VTE Risk Assessment Caprini VTE Risk Assessment: Moderate/High Risk (score >= 2) Caprini Risk Assessment Model: Point Value = 1 Point Value = 2 Point Value = 3 Point Value = 5 Age 41-60 Minor surgery BMI > 25 kg/m2 Swollen legs Varicose veins or History of unexplained or recurrent spontaneous Oral contraceptives or hormone replacement Sepsis (< 1 month) Serious lung disease, including pneumonia (< 1 month) Abnormal pulmonary function Acute myocardial infarction Congestive heart failure (< 1 month) History of inflammatory bowel disease Medical patient at bed rest Age 61-74 Arthroscopic surgery Major open surgery (> 45 min) Laparoscopic surgery (> 45 min) Malignancy Confined to bed (> 72 hours) Immobilizing plaster cast Central venous access Age >= 75 History of VTE Family history of VTE Factor V Leiden Prothrombin [id number] Lupus anticoagulant Anticardiolipin antibodies Elevated serum homocysteine Heparin-induced thrombocytopenia Other congenital or acquired thrombophilia Stroke (< 1 month) Elective arthroplasty Hip, pelvis, or leg fracture Acute spinal cord injury (< 1 month) Prophylaxis Regimen: Total Risk Factor Score Risk Level Prophylaxis Regimen 0-1 Low Early ambulation 2 Moderate Order ONE of the following: *Sequential Compression Device (SCD) *Heparin 5000 units SQ BID 3-4 Higher Order ONE of the following medications: *Heparin 5000 units SQ TID *Enoxaparin/Lovenox 40 mg SQ daily (WT < 150 kg, CrCl > 30 mL/min) *Enoxaparin/Lovenox 30 mg SQ daily (WT < 150 kg, CrCl > 10-29 mL/min) *Enoxaparin/Lovenox 30 mg SQ BID (WT < 150 kg, CrCl > 30 mL/min) AND/OR *Sequential Compression Device (SCD) 5 or more Highest Order ONE of the following medications: *Heparin 5000 units SQ TID (Preferred with Epidurals) *Enoxaparin/Lovenox 40 mg SQ daily (WT < 150 kg, CrCl > 30 mL/min) *Enoxaparin/Lovenox 30 mg SQ daily (WT < 150 kg, CrCl > 10-29 mL/min) *Enoxaparin/Lovenox 30 mg SQ BID (WT < 150 kg, CrCl > 30 mL/min) AND *Sequential Compression Device (SCD) Assessment and Plan - Problem List (1) Acute exacerbation of CHF (congestive heart failure) Code(s): I50.9 - Heart failure, unspecified Status: Acute (2) KESHAWN (acute kidney injury) Code(s): N17.9 - Acute kidney failure, unspecified Status: Acute (3) Hyperglycemia Code(s): R73.9 - Hyperglycemia, unspecified Status: Acute (4) Elevated troponin Code(s): R74.8 - Abnormal levels of other serum enzymes Status: Acute (5) Pulmonary edema Code(s): J81.1 - Chronic pulmonary edema Status: Acute - Assessment and Plan Plan: 82yM presenting with CHF exacerbation, pulmonary edema, acute kidney injury, hyperglycemia, and borderline low BP NEURO: -Continue home gabapentin -Delirium precautions CARDIO: -Patient was given 500 cc bolus in ED -Restart home lasix, patient appears to be fluid overloaded on exam and imaging -Continue home beta pratibha with hold parameters -Hold lisinopril in the setting of KESHAWN -Check 2D echo -Trend troponin/ EKG -Continue Plavix * I did not order aspirin as the patient has a documented severe allergy to rofecoxib -Cardiology consult PULM: -Supplemental O2 -Nebs -Incentive spirometry -Patient does not appear to require bipap at this point but I would have a low threshold to start if his respiratory status worsens F/E/N, GI: -Cardiac diet with 1200 cc fluid restriction -No IVF -Continue home PPI RENAL: -Acute kidney injury, suspect cardiorenal syndrome as patient does not appear to be dehydrated -Hold BLOSSOM-I -Continue lasix -Recheck BUN/ creat in AM -Strict Is/Os (does not require Monzon catheter) ENDO: -SSI, Accuchecks -Hold home meds -Hold allopurinol in the setting of KESHAWN PROPHY: -SCDs/ compression stockings, SQH -Home PPI OVERALL: This patient requires ICU level of care for CHF exacerbation, acute kidney injury, pulmonary edema requiring supplemental O2, and borderline hypotension. He requires close monitoring overnight. If he remains stable, he can be transferred to the hospitalist service tomorrow. Counseling/ Coordination of Care: Total critical care time spent is 33 minutes. This includes examining the patient, gathering history from someone other than the patient (i.e. chart review), discussing the patient's care with other providers, ordering and interpreting radiologic studies, ordering and interpreting laboratory values, reconciliation of home medications, and documentation. Amount of time is separate from teaching, counseling the patient and/or family, and exclusive of procedures. Code Status: DNR/ DNI
[2018-01-04] MEDS: Insulin NovoLIN Regular Correctional Sugar Inj SQ SCH ×2 (17:33→21:11)
[2018-01-04] MEDS: Heparin - SQ 10,000 UNITS/ML Vial SQ SCH (17:33)
--- NOTE | 2018-01-04 20:20 | US ---
EXAM DATE: 01/04/2018 3:28 PM EDT AGE/SEX: 82 years / Male INDICATIONS: Bilateral leg swelling. CLINICAL DATA: This is the patient's subsequent encounter. Patient reports that signs and symptoms h ave been present for 1 day and indicates a pain score of 2/10. MEDICAL/SURGICAL HISTORY: Hypertension. Coronary artery disease. Cataracts. Hyperlipidemia. Sol betes. . Coronary artery stents. COMPARISON: . TECHNIQUE: Venous ultrasound of both lower extremities was performed from the inguinal ligament to t he proximal calf. Real-time, color Doppler and spectral tracing, compression and augmentation techni ques were used. FINDINGS: Right Leg: Normal compression of the deep venous system from the inguinal region to the proximal socrates f. No echogenic clot is seen. Normal response of the venous system to augmentation and respiration. Left Leg: Normal compression of the deep venous system from the inguinal region to the proximal calf . No echogenic clot is seen. Normal response of the venous system to augmentation and respiration. Other: Approximate 5.4 cm complex Rivas's cyst is seen on the left and 3.6 cm on the right. CONCLUSION: 1. No evidence for DVT. 2. Bilateral complex Rivas's cysts. Electronically signed by: Ben De Luna MD 01/04/2018 8:18 PM EDT
[2018-01-04] MEDS: Gabapentin 300 MG Capsule PO SCH (20:54)
[2018-01-04] MEDS: Senna/Docusate Sodium 8.6/50 MG Tablet PO SCH (20:55)
[2018-01-04] MEDS ORDERED: IPRATROPIUM BROMIDE EACH NARE SCH (21:00)
[2018-01-04] MEDS ORDERED: PT:IPRATROPRIUM NASAL SPRAY NASAL SCH (21:00)
[2018-01-05] MEDS: Heparin - SQ 10,000 UNITS/ML Vial SQ SCH ×3 (01:40→17:42)
[2018-01-05] MEDS ORDERED: Chlorhexidine Gluconate 2% 1 Pack (2 Cloths) TOPICAL PRN (04:00)
[2018-01-05 04:09] LABS: Baso % (Auto) 0.4 % (0.0-2.0); Eos # (Auto) 0.2 th/mm3 (0.0-0.4); Eos % (Auto) 2.4 % (0.0-4.0); Hemoglobin 8.4 gm/dL (13.0-17.0); Lymph % (Auto) 11.7 % (9.0-44.0); Mean Corpuscular HGB Conc 32.2 % (32.0-36.0); Mean Corpuscular Hemoglobin 30.9 pg (27.0-34.0); Mean Corpuscular Volume 96.1 fL (80.0-100.0); Mean Platelet Volume 8.4 fL (7.0-11.0); Mono # (Auto) 1.2 th/mm3 (0.0-0.9); Mono % (Auto) 13.4 % (0.0-8.0); Neut # (Auto) 6.2 th/mm3 (1.8-7.7); Neut % (Auto) 72.1 % (16.0-70.0); Platelet Count 224 th/mm3 (150-450); White Blood Count 8.7 th/mm3 (4.0-11.0)
[2018-01-05 04:43] LABS: Calcium 7.9 mg/dL (8.5-10.1); Magnesium 1.7 mg/dL (1.5-2.5); Phosphorus 5.4 mg/dL (2.5-4.9); Potassium 4.2 meq/L (3.5-5.1); Troponin I 0.12 ng/mL (0.02-0.05)
[2018-01-05] MEDS: Insulin NovoLIN Regular Correctional Sugar Inj SQ SCH ×5 (07:24→20:46)
[2018-01-05] MEDS: Chlorhexidine Gluconate 2% 1 Pack (2 Cloths) TOPICAL SCH (07:25)
[2018-01-05] MEDS: Gabapentin 300 MG Capsule PO SCH ×2 (08:28→20:31)
[2018-01-05] MEDS: Senna/Docusate Sodium 8.6/50 MG Tablet PO SCH ×2 (08:28→20:24)
[2018-01-05] MEDS: Pantoprazole Sodium 20 MG DR Tablet PO SCH (08:28)
[2018-01-05] MEDS: Atenolol 50 MG Tablet PO SCH (08:28)
--- NOTE | 2018-01-05 08:42 | P.CONCA ---
History of Present Illness Service: cardiology Consult date: 01/05/18 Reason for Consult: CHF exacerbation Primary Care Provider: UNKNOWN Chief Complaint: Leg swelling History of Present Illness: 82 yo WM with CAD, HLD, HTN and DMII who is followed by Dr. Hills in the outpatient setting (last saw 2 months ago) who presented last night with progressive LE edema x 2-3 days. Patient is lethargic this morning and history is provided by RN and chart. Patient lives in a nursing facility; also resides there in dementia unit. He denies chest pain, sob or palpitations. Labs reveal acute kidney injury with creatinine 3.4 (patient denies prior chronic kidney disease), Hgb 8.8, and troponin levels elevated and flat (0.12 x 3). RN reports he was more mental clarity last night and breathing has improved; however this morning he is very lethargic. CXR shows fluid overload and lasix has been given in IV push x 3. Review of Systems All other systems reviewed negative except as stated in HPI PMFSH - History History Provided By: Patient - Medical History Medical History: Medical History (Last Reviewed 01/04/18 @ 15:42 by Meagan Mccrary DO) Hyperlipidemia CAD (coronary artery disease) Cataract HTN (hypertension) Type 2 diabetes mellitus - Surgical History Surgical History: Surgical History (Last Reviewed 01/04/18 @ 15:42 by Meagan Mccrary DO) Stented coronary artery - Tobacco History Second Hand Smoke Exposure: No Tobacco Use In Past 30 Days: No Smoking Status: Former smoker Tobacco Type: Cigarettes - Alcohol History How Often Do You Have a Drink Containing Alcohol: Never - Substance Use History Substance History: No History of Abuse - Travel History Recent Travel in the [place] Within the Last 8 Weeks: No Recent Travel Out of the Country Within the Last 8 Weeks: No - Immunization History Tetanus Immunization: >5 Years Medications and Allergies Active Medications: Active Medications Acetaminophen (Tylenol) 650 mg PO Q4H PRN PRN Reason: Pain/Fever Al Hydroxide/Mg Hydroxide (Milk Of Magnalondra Liq) 30 ml PO Q12H PRN PRN Reason: Mild Constipation Albuterol (Albuterol Neb (Prn)) 2.5 mg NEB Q2HR NEB PRN PRN Reason: SHORTNESS OF BREATH/WHEEZING Albuterol (Duoneb Neb (Sunshine)) 1 ampul NEB Q6HR NEB SUNSHINE Last Admin: 01/05/18 03:24 Dose: 1 ampul Atenolol (Tenormin) 50 mg PO DAILY [facility] Bisacodyl (Dulcolax Supp) 10 mg RECTAL DAILY PRN PRN Reason: SEVERE CONSITIPATION Chlorhexidine Gluconate (Chlorhexidine 2% Cloth) 3 pack TOPICAL DAILY@0400 SUNSHINE Stop: 01/10/18 03:59 Last Admin: 01/05/18 07:25 Dose: 3 pack Chlorhexidine Gluconate (Chlorhexidine 2% Cloth) 3 pack TOPICAL DAILY@0400 PRN PRN Reason: Extra cloth needed Stop: 01/10/18 03:59 Clopidogrel Bisulfate (Plavix) 75 mg PO DAILY [facility] Last Admin: 01/04/18 17:33 Dose: 75 mg Dextrose (D50w Vial) 50 ml IV.PUSH UNSCH PRN PRN Reason: PER HYPOGLYCEMIA PROTOCOL Gabapentin (Neurontin) 300 mg PO BID [facility] Last Admin: 01/04/18 20:54 Dose: 300 mg Glucagon (Glucagon Inj) 1 mg OTHER PRN PRN PRN Reason: for Hypoglycemia Protocol Heparin Sodium (Porcine) (Heparin Inj) 5,000 units SQ Q8H [facility] Last Admin: 01/05/18 01:40 Dose: 5,000 units Sodium Chloride (Ns Inj) 500 mls @ 0 mls/hr IV.SIG BOLUS [facility] Last Infusion: 01/04/18 15:13 Dose: Infused Insulin Human Regular (Novolin R Correctional Sugar Inj) 0 units SQ ACHS AND 3AM SUNSHINE; Protocol Last Admin: 01/05/18 07:24 Dose: Not Given Ipratropium [place] (Atrovent Neb) 0.5 mg NEB Q2HR NEB PRN PRN Reason: WHEEZING Lactulose (Lactulose Liq) 30 ml PO DAILY PRN PRN Reason: SEVERE CONSITIPATION Ondansetron HCl (Zofran Inj) 4 mg IV.PUSH Q6H PRN PRN Reason: NAUSEA OR VOMITING Pantoprazole Sodium (Protonix) 20 mg PO DAILY [facility] Pt:Ipratroprium (Nasal [place]) 0 each NASAL BID [facility] Senna/Docusate Sodium (Jennifer-Colace) 1 tab PO BID [facility] Last Admin: 01/04/18 20:55 Dose: Not Given Sennosides (Senokot) 17.2 mg PO Q12H PRN PRN Reason: Moderate Constipation Sodium Chloride (Ns Flush) 2 ml IV.FLUSH UNSCH PRN PRN Reason: FLUSH AFTER USING IV ACCESS Last Admin: 01/04/18 14:14 Dose: 2 ml Sodium Chloride (Ns Flush) 2 ml IV.FLUSH PRN PRN PRN Reason: FLUSH AFTER USING IV ACCESS Sodium Chloride (Ns Flush) 2 ml IV.FLUSH BID SUNSHINE Last Admin: 01/04/18 20:54 Dose: 2 ml Allergies Allergy/AdvReac Type Severity Reaction Status Date / Time ciprofloxacin Allergy Severe Hives Verified 01/04/18 11:13 levofloxacin Allergy Severe Swelling Verified 01/04/18 11:13 of Lip/Tongue/Throat penicillin G Allergy Severe Hives Verified 01/04/18 11:13 rofecoxib Allergy Severe Hives Verified 01/04/18 11:13 Home Medications Medication Instructions Recorded Confirmed Type allopurinol 100 mg PO DAILY 12/13/17 01/04/18 History atenolol 50 mg PO DAILY 12/13/17 01/04/18 History clopidogrel 75 mg PO DAILY 12/13/17 01/04/18 History gabapentin 300 mg PO BID 12/13/17 01/04/18 History lisinopril 20 mg PO DAILY 12/13/17 01/04/18 History tramadol 50 mg PO QID PRN 12/13/17 01/04/18 History acetaminophen [Tylenol] 650 mg PO Q4H PRN 01/04/18 01/04/18 History ascorbic acid (vitamin C) [Vitamin 500 mg PO HS 01/04/18 01/04/18 History C] bisacodyl [Dulcolax (bisacodyl)] 10 mg ND HS PRN 01/04/18 01/04/18 History cranberry extract 425 mg PO DAILY 01/04/18 01/04/18 History furosemide [Lasix] 40 mg PO DAILY 01/04/18 01/04/18 History ipratropium bromide 1 spray INTRANASAL BID 01/04/18 01/04/18 History magnesium hydroxide [Milk of 30 ml PO DAILY PRN 01/04/18 01/04/18 History Magnesia] sitagliptin [Januvia] 25 mg PO DAILY 01/04/18 01/04/18 History Exam Vital signs: Vital Signs 01/04/18 11:14 01/04/18 12:57 01/04/18 14:15 Temperature 98.1 F 97.7 F 97.9 F Pulse Rate 75 66 68 Respiratory Rate 22 20 22 Blood Pressure 109/55 L 98/55 L 95/58 L Pulse Oximetry 96 98 97 01/04/18 15:04 01/04/18 16:59 01/04/18 17:03 Temperature 97.9 F Pulse Rate 68 69 70 Respiratory Rate 22 25 H 20 Blood Pressure 102/55 L Pulse Oximetry 97 96 93 L 01/04/18 17:04 01/04/18 17:07 01/04/18 17:08 Temperature 98.2 F Pulse Rate 67 Respiratory Rate 12 Blood Pressure 113/50 L Pulse Oximetry 99 01/04/18 20:00 01/04/18 20:39 01/04/18 21:11 Temperature 98.2 F Pulse Rate 73 70 77 Respiratory Rate 16 20 22 Blood Pressure 106/45 L Pulse Oximetry 92 L 98 96 01/04/18 22:00 01/04/18 22:01 01/04/18 23:00 Temperature Pulse Rate 71 72 70 Respiratory Rate 19 21 24 Blood Pressure 99/48 L 91/54 L Pulse Oximetry 95 96 96 01/05/18 00:00 01/05/18 00:04 01/05/18 01:00 Temperature 97.5 F L Pulse Rate 67 70 63 Respiratory Rate 20 24 25 H Blood Pressure 88/43 L 109/54 L 94/59 L Pulse Oximetry 97 95 97 01/05/18 02:00 01/05/18 02:25 01/05/18 03:02 Temperature Pulse Rate 71 73 68 Respiratory Rate 33 H 2 L 17 Blood Pressure 128/56 L 109/56 L Pulse Oximetry 94 L 94 L 95 01/05/18 03:24 01/05/18 04:00 01/05/18 05:01 Temperature 97.7 F Pulse Rate 66 69 71 Respiratory Rate 19 18 16 Blood Pressure 95/52 L 105/52 L Pulse Oximetry 95 01/05/18 06:00 01/05/18 06:10 01/05/18 07:01 Temperature Pulse Rate 74 74 63 Respiratory Rate 26 H 14 14 Blood Pressure 114/57 L 89/51 L Pulse Oximetry 95 97 99 01/05/18 07:48 Temperature Pulse Rate Respiratory Rate Blood Pressure Pulse Oximetry 98 Intake & Output 01/04/18 01/05/18 01/05/18 18:59 06:59 18:59 Intake Total 850 / 850 240 / 240 Output Total 500 / 500 600 / 600 Balance 350 / 350 -360 / -360 Weight 140.7 kg 136.1 kg Intake: IV 500 / 500 NS Inj 500 ML @ Wide Open IV. 500 / 500 SIG BOLUS SUNSHINE Rx#:[id number] Oral 350 / 350 240 / 240 Output: Urine 500 / 500 600 / 600 Other: Date of Last Bowel Movement 01/05/18 # Bowel Movements 4 Narrative: GENERAL: obese male SKIN: Warm and dry. HEAD: Normocephalic. EYES: No scleral icterus. No injection or drainage. NECK: Supple, trachea midline. No JVD or lymphadenopathy. CARDIOVASCULAR: Regular rate, distal heart sounds gallops, or rubs. RESPIRATORY: bilateral crackles and wheezing GASTROINTESTINAL: Abdomen soft, non-tender, nondistended. MUSCULOSKELETAL: No cyanosis, Bilateral 3+ edema to lower legs Results 01/05/18 03:32 01/05/18 03:32 Cardiac Enzymes 01/04/18 01/04/18 01/04/18 Range/Units 11:00 11:00 11:00 AST 55 H (15-37) U/L Troponin I 0.12 H (0.02-0.05) ng/mL B-Natriuretic Peptide 948 H (0-100) pg/mL 01/04/18 01/05/18 01/05/18 Range/Units 21:10 03:32 03:32 AST (15-37) U/L Troponin I 0.10 H 0.12 H (0.02-0.05) ng/mL B-Natriuretic Peptide 981 H (0-100) pg/mL Coagulation 01/04/18 01/04/18 01/05/18 Range/Units 11:00 13:00 03:32 PT 12.2 H (9.8-11.6) sec APTT 26.8 (24.3-30.1) sec B-Natriuretic Peptide 948 H 981 H (0-100) pg/mL CBC 01/04/18 01/04/18 01/05/18 Range/Units 11:00 13:00 03:32 WBC 10.8 10.3 8.7 (4.0-11.0) th/mm3 RBC 2.81 L 2.69 L 2.70 L (4.50-5.90) mil/mm3 Hgb 8.8 L 8.8 L 8.4 L (13.0-17.0) gm/dL Hct 27.1 L 25.6 L 26.0 L (39.0-51.0) % Plt Count 227 216 224 (150-450) th/mm3 Neut # (Auto) 8.2 H 7.8 H 6.2 (1.8-7.7) th/mm3 Lymph # (Auto) 1.0 0.9 L 1.0 (1.0-4.8) th/mm3 [place] # (Auto) 1.4 H 1.4 H 1.2 H (0.0-0.9) th/mm3 Eos # (Auto) 0.1 0.1 0.2 (0.0-0.4) th/mm3 Baso # (Auto) 0.1 0.0 0.0 (0.0-0.2) th/mm3 Comprehensive Metabolic Panel 01/04/18 01/05/18 Range/Units 11:00 03:32 Sodium 138 141 (136-145) meq/L Potassium 4.7 4.2 (3.5-5.1) meq/L Chloride 104 104 (98-107) meq/L Carbon Dioxide 24.5 27.0 (21.0-32.0) meq/L BUN 94 H 91 H (7-18) mg/dL Creatinine 3.40 H 3.23 H (0.60-1.30) mg/dL Calcium 8.2 L 7.9 L (8.5-10.1) mg/dL AST 55 H (15-37) U/L ALT 51 (12-78) U/L Alkaline Phosphatase 118 H (45-117) U/L Total Protein 7.0 (6.4-8.2) g/dL Albumin 2.0 L (3.4-5.0) g/dL Intake and Output 01/04/18 01/05/18 01/05/18 22:59 06:59 14:59 Intake Total 850 / 850 240 / 240 Output Total 500 / 500 600 / 600 Balance 350 / 350 -360 / -360 Intake: IV 500 / 500 NS Inj 500 ML @ Wide Open IV. 500 / 500 SIG BOLUS SUNSHINE Rx#:[id number] Oral 350 / 350 240 / 240 Output: Urine 500 / 500 600 / 600 Other: Date of Last Bowel Movement 01/05/18 01/05/18 # Bowel Movements 4 Weight 140.7 kg 136.1 kg - Imaging and Cardiology Imaging: Impressions Chest X-Ray 01/04/18 00:00 CONCLUSION: Moderate congestive failure with probable trace pleural effusions. Findings have progressed from the comparison study. Venous Doppler Study 01/04/18 15:28 CONCLUSION: 1. No evidence for DVT. 2. Bilateral complex Rivas's cysts. Assessment and Plan - Plan 82 yo WM with CAD, HLD, HTN and DMII who is followed by Dr. Hills in the outpatient setting (last saw 2 months ago) who presented last night with progressive LE edema x 2-3 days. Patient is lethargic this morning and history is provided by RN and chart. Patient lives in a nursing facility; also resides there in dementia unit. He denies chest pain, sob or palpitations. Labs reveal acute kidney injury with creatinine 3.4 (patient denies prior chronic kidney disease), Hgb 8.8, and troponin levels elevated and flat (0.12 x 3). RN reports he was more mental clarity last night and breathing has improved; however this morning he is very lethargic. CXR shows fluid overload. CHF- will require further diuresis. monitor creatinine and I's/O's closely. 2D echo ordered troponin elevation likely demand mediated from KESHAWN. CAD- coronary history unknown but he does take Plavix and follows with Dr. Hills regularly denies chest pain
[2018-01-05] MEDS ORDERED: Furosemide 40 MG Tablet PO SCH (09:00)
--- NOTE | 2018-01-05 12:29 | ECG ---
Date Performed: 01/04/2018 Time Performed: 13:18:34 PTAGE: 82 years EKG: Sinus rhythm RIGHT BUNDLE BRANCH BLOCK INFERIOR MYOCARDIAL INFARCTION ANTEROSEPTAL MYOCARDIAL INFARCTION ABNORMAL ECG Compared to PREVIOUS TRACING , NE interval slightly shorter, otherwsie no significant change. PREVIOU S TRACIN12/13/2017 21.45 DOCTOR: Edgardo Tubbs Interpretating Date/Time 01/05/2018 12:28:11
--- NOTE | 2018-01-05 12:31 | ECG ---
Date Performed: 01/04/2018 Time Performed: 19:19:13 PTAGE: 82 years EKG: Sinus rhythm RIGHT BUNDLE BRANCH BLOCK INFERIOR MYOCARDIAL INFARCTION , PROBABLY OLD LEFT AXIS DEVIATION ANTEROSE PTAL MYOCARIAL INFARCTION OF UNDETERMINED AGE WITH Q-WAVES IN LEADS V1-V4 AND SLIGHT ST ELEVATION SEE N IN LEADS V2-V5. THIS COULD REPRESENT RECURRENT INJURY AFTER OLD ANTERIOR CT. CLINICAL CORRELATION A ND FOLLOW UP TRACINGS RECOMMENDED. PREVIOUS TRACING : 01/04/2018 13.18 DOCTOR: Edgardo Tubbs Interpretating Date/Time 01/05/2018 12:29:55
--- NOTE | 2018-01-05 15:40 | P.PN ---
Subjective Interval history: The patient is in bed he appears sleepy and with some shortness of breath. He is however falling asleep easily and he gets tired easily. Coughing intermittently some yellow sputum production but not much. Still with some wheezing. He feels very tired. However he would like to try physical therapy. Physical Exam Vital signs: Vital Signs 01/04/18 16:59 01/04/18 17:03 01/04/18 17:04 Temperature 98.2 F Pulse Rate 69 70 Respiratory Rate 25 H 20 Blood Pressure 113/50 L Pulse Oximetry 96 93 L 01/04/18 17:07 01/04/18 17:08 01/04/18 20:00 Temperature 98.2 F Pulse Rate 67 73 Respiratory Rate 12 16 Blood Pressure Pulse Oximetry 99 92 L 01/04/18 20:39 01/04/18 21:11 01/04/18 22:00 Temperature Pulse Rate 70 77 71 Respiratory Rate 20 22 19 Blood Pressure 106/45 L Pulse Oximetry 98 96 95 01/04/18 22:01 01/04/18 23:00 01/05/18 00:00 Temperature 97.5 F L Pulse Rate 72 70 67 Respiratory Rate 21 24 20 Blood Pressure 99/48 L 91/54 L 88/43 L Pulse Oximetry 96 96 97 01/05/18 00:04 01/05/18 01:00 01/05/18 02:00 Temperature Pulse Rate 70 63 71 Respiratory Rate 24 25 H 33 H Blood Pressure 109/54 L 94/59 L Pulse Oximetry 95 97 94 L 01/05/18 02:25 01/05/18 03:02 01/05/18 03:24 Temperature Pulse Rate 73 68 66 Respiratory Rate 2 L 17 19 Blood Pressure 128/56 L 109/56 L Pulse Oximetry 94 L 95 01/05/18 04:00 01/05/18 05:01 01/05/18 06:00 Temperature 97.7 F Pulse Rate 69 71 74 Respiratory Rate 18 16 26 H Blood Pressure 95/52 L 105/52 L Pulse Oximetry 95 95 01/05/18 06:10 01/05/18 07:01 01/05/18 07:48 Temperature Pulse Rate 74 63 Respiratory Rate 14 14 Blood Pressure 114/57 L 89/51 L Pulse Oximetry 97 99 98 01/05/18 08:00 01/05/18 09:00 01/05/18 09:09 Temperature 97.9 F Pulse Rate 68 65 66 Respiratory Rate 22 9 L 17 Blood Pressure 105/54 L 114/57 L Pulse Oximetry 96 100 01/05/18 10:00 01/05/18 10:01 01/05/18 11:00 Temperature Pulse Rate 71 80 66 Respiratory Rate 26 H 23 9 L Blood Pressure 131/71 101/50 L Pulse Oximetry 98 01/05/18 12:00 01/05/18 13:01 01/05/18 15:04 Temperature 97.9 F Pulse Rate 63 69 64 Respiratory Rate 9 L 25 H 16 Blood Pressure 90/55 L 104/57 L Pulse Oximetry 99 94 L Intake & Output 01/04/18 01/05/18 01/05/18 18:59 06:59 18:59 Intake Total 850 / 850 240 / 240 Output Total 500 / 500 600 / 600 Balance 350 / 350 -360 / -360 Weight 140.7 kg 136.1 kg Intake: IV 500 / 500 NS Inj 500 ML @ Wide Open IV. 500 / 500 SIG BOLUS MUNA Rx#:[id number] Oral 350 / 350 240 / 240 Output: Urine 500 / 500 600 / 600 Other: Date of Last Bowel Movement 01/05/18 01/05/18 # Bowel Movements 4 Narrative: GENERAL: 82-year-old male, obese male EYES: No scleral icterus. No injection or drainage. NECK: Supple, trachea midline. No JVD or lymphadenopathy. CARDIOVASCULAR: Regular rate, distal heart sounds gallops, or rubs. RESPIRATORY: bilateral crackles and wheezing GASTROINTESTINAL: Abdomen soft, non-tender, nondistended. MUSCULOSKELETAL: No cyanosis, Bilateral 3+ edema to lower legs Results - Labs CBC & Chem 7: 01/05/18 03:32 01/05/18 03:32 Laboratory Results - last 24 hr 01/04/18 01/04/18 01/04/18 11:00 17:00 17:17 WBC RBC Hgb Hct MCV MCH MCHC RDW Plt Count MPV Neut % (Auto) Lymph % (Auto) [place] % (Auto) Eos % (Auto) Baso % (Auto) Neut # (Auto) Lymph # (Auto) [place] # (Auto) Eos # (Auto) Baso # (Auto) WBC Differential Differential Comment Sodium Potassium Chloride Carbon Dioxide Anion Gap BUN Creatinine Estimated GFR POC Glucose 195 H Random Glucose Calcium Phosphorus Magnesium Troponin I B-Natriuretic Peptide TSH 1.810 Nasal Screen MRSA (PCR) Not detected 01/04/18 01/04/18 01/05/18 21:00 21:10 03:32 WBC RBC Hgb Hct MCV MCH MCHC RDW Plt Count MPV Neut % (Auto) Lymph % (Auto) [place] % (Auto) Eos % (Auto) Baso % (Auto) Neut # (Auto) Lymph # (Auto) [place] # (Auto) Eos # (Auto) Baso # (Auto) WBC Differential Differential Comment Sodium Potassium Chloride Carbon Dioxide Anion Gap BUN Creatinine Estimated GFR POC Glucose 217 H Random Glucose Calcium Phosphorus Magnesium Troponin I 0.10 H B-Natriuretic Peptide 981 H TSH Nasal Screen MRSA (PCR) 01/05/18 01/05/18 01/05/18 03:32 03:32 06:11 WBC 8.7 RBC 2.70 L Hgb 8.4 L Hct 26.0 L MCV 96.1 MCH 30.9 MCHC 32.2 RDW 15.0 Plt Count 224 MPV 8.4 Neut % (Auto) 72.1 H Lymph % (Auto) 11.7 [place] % (Auto) 13.4 H Eos % (Auto) 2.4 Baso % (Auto) 0.4 Neut # (Auto) 6.2 Lymph # (Auto) 1.0 [place] # (Auto) 1.2 H Eos # (Auto) 0.2 Baso # (Auto) 0.0 WBC Differential . Differential Comment Auto diff final Sodium 141 Potassium 4.2 Chloride 104 Carbon Dioxide 27.0 Anion Gap 10 BUN 91 H Creatinine 3.23 H Estimated GFR 18 L POC Glucose 129 H Random Glucose 123 H D Calcium 7.9 L Phosphorus 5.4 H Magnesium 1.7 Troponin I 0.12 H B-Natriuretic Peptide TSH Nasal Screen MRSA (PCR) 01/05/18 01/05/18 08:09 11:59 WBC RBC Hgb Hct MCV MCH MCHC RDW Plt Count MPV Neut % (Auto) Lymph % (Auto) [place] % (Auto) Eos % (Auto) Baso % (Auto) Neut # (Auto) Lymph # (Auto) [place] # (Auto) Eos # (Auto) Baso # (Auto) WBC Differential Differential Comment Sodium Potassium Chloride Carbon Dioxide Anion Gap BUN Creatinine Estimated GFR POC Glucose 154 H 135 H Random Glucose Calcium Phosphorus Magnesium Troponin I B-Natriuretic Peptide TSH Nasal Screen MRSA (PCR) - Imaging Impressions Venous Doppler Study 01/04/18 15:28 CONCLUSION: 1. No evidence for DVT. 2. Bilateral complex Rivas's cysts. Assessment and Plan - Plan 82 yo M presenting with CHF exacerbation, pulmonary edema, acute kidney injury, hyperglycemia, and borderline low BP NEURO: -Continue home gabapentin -Delirium precautions CARDIO: -Patient was given 500 cc bolus in ED -Restart home lasix, patient appears to be fluid overloaded on exam and imaging -Continue home beta pratibha with hold parameters -Hold lisinopril in the setting of KESHAWN -Check 2D echo -Trend troponin/ EKG -Continue Plavix * I did not order aspirin as the patient has a documented severe allergy to rofecoxib -Cardiology consult PULM: -Supplemental O2 -Nebs -Incentive spirometry -Patient does not appear to require bipap at this point but I would have a low threshold to start if his respiratory status worsens F/E/N, GI: -Cardiac diet with 1200 cc fluid restriction -No IVF -Continue home PPI RENAL: -Acute kidney injury, suspect cardiorenal syndrome as patient does not appear to be dehydrated -Hold BLOSSOM-I -Continue lasix -Recheck BUN/ creat in AM -Strict Is/Os (does not require Monzon catheter) ENDO: -SSI, Accuchecks -Hold home meds -Hold allopurinol in the setting of KESHAWN PROPHY: -SCDs/ compression stockings, SQH -Home PPI OVERALL: This patient requires ICU level of care for CHF exacerbation, acute kidney injury, pulmonary edema requiring supplemental O2, and borderline hypotension. He requires close monitoring overnight. If he remains stable, he can be transferred to the hospitalist service tomorrow. Counseling/ Coordination of Care: Total critical care time spent is 33 minutes. This includes examining the patient, gathering history from someone other than the patient (i.e. chart review), discussing the patient's care with other providers, ordering and interpreting radiologic studies, ordering and interpreting laboratory values, reconciliation of home medications, and documentation. Amount of time is separate from teaching, counseling the patient and/or family, and exclusive of procedures. Code Status: DNR/ DNI Transfer patient to medical surgical floor
--- NOTE | 2018-01-05 18:10 | ECHRPT ---
Indication: HEART FAILURE CONCLUSIONS The left ventricular systolic function is moderately reduced with an estimated ejection fraction in the range of 40-45%. There was limited left ventricular wall motion assessment due to poor endocardial visualization. Mild mitral valve stenosis (mean grad 3 at a heart rate of 65, MVA 1.64). Trace mitral valve regurgitation. There is mild tricuspid valve regurgitation. Trivial pulmonary valve regurgitation. The inferior vena cava is dilated. There is less than 50% respiratory change in dimension of the inferior vena cava (abnormal). BP: / HR: Rhythm: Sinus MEASUREMENTS (Male / Female) Normal Values Technical Quality:Very technically difficult study 2D ECHO LV Diastolic Diameter PLAX 5.8 cm 4.2 - 5.9 / 3.9 - 5.3 cm LV Systolic Diameter PLAX 4.7 cm IVS Diastolic Thickness 1.1 cm 0.6 - 1.0 / 0.6 - 0.9 cm LVPW Diastolic Thickness 1.1 cm 0.6 - 1.0 / 0.6 - 0.9 cm LV Relative Wall Thickness 0.4 RV Internal Dim ED PLAX 2.9 cm LVOT Diameter 2.0 cm LA Systolic Diameter LX 4.0 cm 3.0 - 4.0 / 2.7 - 3.8 cm M-MODE LV Diastolic Diameter MM 6.2 cm 4.2 - 5.9 / 3.9 - 5.3 cm LV Systolic Diameter MM 5.0 cm LV Ejection Fraction MM Teich 40.7 % IVS Diastolic Thickness MM 1.1 cm 0.6 - 1.0 / 0.6 - 0.9 cm LVPW Diastolic Thickness MM 1.1 cm 0.6 - 1.0 / 0.6 - 0.9 cm LV Relative Wall Thickness MM 0.4 0.24 - 0.42 / 0.22 - 0.42 Aortic Root Diameter MM 1.6 cm LA Systolic Diameter MM 3.8 cm LA Ao Ratio MM 2.4 AV Cusp Separation MM 1.1 cm DOPPLER AV Peak Velocity 128.0 cm/s AV Peak Gradient 6.6 mmHg LVOT Peak Velocity 121.0 cm/s LVOT Peak Gradient 5.9 mmHg AV Area Cont Eq pk 3.0 cm MV Peak Velocity 135.0 cm/s MV Peak Gradient 7.3 mmHg MV Mean Velocity 73.7 cm/s MV Mean Gradient 3.0 mmHg MV Area PHT 2.4 cm Mitral E Point Velocity 110.0 cm/s Mitral A Point Velocity 67.1 cm/s Mitral E to A Ratio 1.6 TR Peak Velocity 289.0 cm/s TR Peak Gradient 33.4 mmHg Right Atrial Pressure 10.0 mmHg Pulmonary Artery Systolic Pressu 43.4 mmHg Right Ventricular Systolic Press 43.4 mmHg PV Peak Velocity 62.4 cm/s PV Peak Gradient 1.6 mmHg FINDINGS LEFT VENTRICLE The left ventricular systolic function is moderately reduced with an estimated ejection fraction in the range of 40-45%. Normal left ventricular size. Wall thickness is measured at the upper limits of normal. There was limited left ventricular wall motion assessment due to poor endocardial visualization. RIGHT VENTRICLE Normal right ventricular size and systolic function. LEFT ATRIUM The left atrial size is upper limits of normal. RIGHT ATRIUM The right atrial size is normal. ATRIAL SEPTUM Normal atrial septal thickness without atrial level shunting by limited color doppler interrogation. AORTA The aortic root and proximal ascending aorta are normal in size on limited imaging. MITRAL VALVE Mild mitral annular calcification. Mild thickening of the mitral valve leaflets. Trace mitral valve regurgitation. Mild mitral valve stenosis (mean grad 3 at a heart rate of 65, MVA 1.64). AORTIC VALVE Trileaflet aortic valve. Diffuse calcification of the aortic valve. No aortic valve regurgitation. No aortic valve stenosis. TRICUSPID VALVE Structurally normal tricuspid valve. There is mild tricuspid valve regurgitation. The estimated pulmonary arterial pressure is 43.4 mmHg. PULMONARY VALVE Trivial pulmonary valve regurgitation. VESSELS The inferior vena cava is dilated. There is less than 50% respiratory change in dimension of the inferior vena cava (abnormal). PERICARDIUM No pericardial effusion. Clifford Carranza DO (Electronically Signed) Final Date:05 January 2018 18:09
[2018-01-06] MEDS: Acetaminophen 325 MG Tablet PO PRN ×2 (00:17→12:39)
[2018-01-06] MEDS: Heparin - SQ 10,000 UNITS/ML Vial SQ SCH ×4 (00:18→23:11)
[2018-01-06] MEDS: Insulin NovoLIN Regular Correctional Sugar Inj SQ SCH ×3 (03:49→12:08)
[2018-01-06] MEDS: Chlorhexidine Gluconate 2% 1 Pack (2 Cloths) TOPICAL SCH (03:49)
[2018-01-06 07:44] LABS: Baso % (Auto) 0.5 % (0.0-2.0); Eos # (Auto) 0.2 th/mm3 (0.0-0.4); Eos % (Auto) 2.8 % (0.0-4.0); Hematocrit 25.7 % (39.0-51.0); Hemoglobin 8.7 gm/dL (13.0-17.0); Lymph # (Auto) 1.2 th/mm3 (1.0-4.8); Lymph % (Auto) 14.4 % (9.0-44.0); Mean Corpuscular HGB Conc 33.9 % (32.0-36.0); Mean Corpuscular Hemoglobin 31.9 pg (27.0-34.0); Mean Corpuscular Volume 94.1 fL (80.0-100.0); Mean Platelet Volume 8.3 fL (7.0-11.0); Mono # (Auto) 0.9 th/mm3 (0.0-0.9); Mono % (Auto) 11.1 % (0.0-8.0); Neut # (Auto) 5.8 th/mm3 (1.8-7.7); Neut % (Auto) 71.2 % (16.0-70.0); Platelet Count 241 th/mm3 (150-450); Red Blood Count 2.73 mil/mm3 (4.50-5.90); Red Cell Distribution Width 14.9 % (11.6-17.2); White Blood Count 8.1 th/mm3 (4.0-11.0)
[2018-01-06] MEDS: Atenolol 50 MG Tablet PO SCH (08:18)
[2018-01-06] MEDS: Gabapentin 300 MG Capsule PO SCH ×2 (08:19→17:25)
[2018-01-06] MEDS: Senna/Docusate Sodium 8.6/50 MG Tablet PO SCH ×2 (08:19→20:17)
[2018-01-06] MEDS: Pantoprazole Sodium 20 MG DR Tablet PO SCH (08:19)
[2018-01-06 08:27] LABS: Calcium 8.2 mg/dL (8.5-10.1); Carbon Dioxide 24.9 meq/L (21.0-32.0); Potassium 4.5 meq/L (3.5-5.1)
--- NOTE | 2018-01-06 10:17 | P.PN ---
Subjective Interval history: Follow-up for acute exacerbation of CHF. Patient is currently resting in bed. Currently on nasal cannula. Denies any chest pain, shortness of breath, fever or chills. Physical Exam Vital signs: Vital Signs 01/05/18 11:00 01/05/18 12:00 01/05/18 13:01 Temperature 97.9 F Pulse Rate 66 63 69 Respiratory Rate 9 L 9 L 25 H Blood Pressure 101/50 L 90/55 L 104/57 L Pulse Oximetry 98 99 94 L 01/05/18 14:00 01/05/18 15:00 01/05/18 15:04 Temperature Pulse Rate 64 64 64 Respiratory Rate 12 17 16 Blood Pressure 100/53 L 108/53 L Pulse Oximetry 98 01/05/18 16:00 01/05/18 19:01 01/05/18 20:00 Temperature 97.9 F 98.4 F Pulse Rate 72 73 69 Respiratory Rate 14 20 25 H Blood Pressure 108/53 L 123/57 L 131/65 Pulse Oximetry 97 98 95 01/05/18 20:49 01/05/18 21:15 01/05/18 22:00 Temperature Pulse Rate 69 72 74 Respiratory Rate 22 20 10 L Blood Pressure 132/61 120/58 L Pulse Oximetry 94 L 98 97 01/05/18 23:00 01/06/18 00:00 01/06/18 01:00 Temperature 97.7 F 97.8 F Pulse Rate 71 71 68 Respiratory Rate 26 H 23 18 Blood Pressure 122/57 L 141/79 H 158/65 H Pulse Oximetry 94 L 96 95 01/06/18 02:20 01/06/18 04:25 01/06/18 08:00 Temperature 97.8 F 97.6 F Pulse Rate 66 71 67 Respiratory Rate 20 16 18 Blood Pressure 106/52 L 104/51 L Pulse Oximetry 94 L 94 L 01/06/18 10:14 Temperature Pulse Rate 67 Respiratory Rate 18 Blood Pressure Pulse Oximetry 94 L Intake & Output 01/05/18 01/06/18 01/06/18 18:59 06:59 18:59 Intake Total 900 / 900 Output Total 1100 / 1100 1000 / 1000 Balance -200 / -200 -1000 / -1000 Weight 138.6 kg Intake: Oral 900 / 900 Output: Urine 1100 / 1100 1000 / 1000 Other: Date of Last Bowel Movement 01/05/18 01/05/18 Weight On Admission 138.6 kg Narrative: GENERAL: 82-year-old male, obese male EYES: No scleral icterus. No injection or drainage. NECK: Supple, trachea midline. No JVD or lymphadenopathy. CARDIOVASCULAR: Regular rate, distal heart sounds gallops, or rubs. RESPIRATORY: bilateral crackles and wheezing GASTROINTESTINAL: Abdomen soft, non-tender, nondistended. MUSCULOSKELETAL: No cyanosis, Bilateral 3+ edema to lower legs Results - Labs CBC & Chem 7: 01/06/18 07:09 01/06/18 07:09 Laboratory Results - last 24 hr 01/05/18 01/05/18 01/05/18 11:59 15:33 15:51 WBC RBC Hgb Hct MCV MCH MCHC RDW Plt Count MPV Neut % (Auto) Lymph % (Auto) [place] % (Auto) Eos % (Auto) Baso % (Auto) Neut # (Auto) Lymph # (Auto) [place] # (Auto) Eos # (Auto) Baso # (Auto) WBC Differential Differential Comment Sodium Potassium Chloride Carbon Dioxide Anion Gap BUN Creatinine Estimated GFR POC Glucose 135 H 177 H Random Glucose Calcium Troponin I 0.07 H 01/05/18 01/06/18 01/06/18 20:41 02:26 07:09 WBC RBC Hgb Hct MCV MCH MCHC RDW Plt Count MPV Neut % (Auto) Lymph % (Auto) [place] % (Auto) Eos % (Auto) Baso % (Auto) Neut # (Auto) Lymph # (Auto) [place] # (Auto) Eos # (Auto) Baso # (Auto) WBC Differential Differential Comment Sodium 139 Potassium 4.5 Chloride 105 Carbon Dioxide 24.9 Anion Gap 9 BUN 107 H Creatinine 3.03 H Estimated GFR 20 L POC Glucose 214 H 174 H Random Glucose 111 H Calcium 8.2 L Troponin I 01/06/18 01/06/18 07:09 08:18 WBC 8.1 RBC 2.73 L Hgb 8.7 L Hct 25.7 L MCV 94.1 MCH 31.9 MCHC 33.9 RDW 14.9 Plt Count 241 MPV 8.3 Neut % (Auto) 71.2 H Lymph % (Auto) 14.4 [place] % (Auto) 11.1 H Eos % (Auto) 2.8 Baso % (Auto) 0.5 Neut # (Auto) 5.8 Lymph # (Auto) 1.2 [place] # (Auto) 0.9 Eos # (Auto) 0.2 Baso # (Auto) 0.0 WBC Differential . Differential Comment Auto diff final Sodium Potassium Chloride Carbon Dioxide Anion Gap BUN Creatinine Estimated GFR POC Glucose 120 H Random Glucose Calcium Troponin I - Procedures Echocardiogram 01/05/2018 The left ventricular systolic function is moderately reduced with an estimated ejection fraction in the range of 40-45%. There was limited left ventricular wall motion assessment due to poor endocardial visualization. Mild mitral valve stenosis (mean grad 3 at a heart rate of 65, MVA 1.64). Trace mitral valve regurgitation. There is mild tricuspid valve regurgitation. Trivial pulmonary valve regurgitation. The inferior vena cava is dilated. There is less than 50% respiratory change in dimension of the inferior vena cava (abnormal). Assessment and Plan - Plan Mr. Franco is a pleasant 82-year-old male with a history of CHF, CAD who presented to the emergency department due to bilateral lower extremity edema. In the ED chest x-ray showed vascular congestion. Patient was placed on supplemental oxygen. Cardiology was consulted as well as critical care for borderline mean arterial blood pressure. Patient was given one-time IV Lasix. Patient's care was transferred to hospitalist service on 05/08/2017. Acute exacerbation of CHF, systolic -Echo on 01/05/2018 shows ejection fraction 45-50%. -Lasix was not started on this patient. -We will start Lasix 40 mg IV twice daily. Upon discharge will consider torsemide. -Appreciate cardiology input. Coronary artery disease -No acute concerns. Mild elevation in troponins are likely due to congestive heart failure as well as KESHAWN. -Continue atenolol, Plavix. Patient is not on statin. Acute kidney injury CKD stage III -Creatinine 3.40 on admission. Trending down. -Will monitor. Avoid BLOSSOM inhibitor for now. Diabetes mellitus -Sliding scale insulin. If needed, we will add Levemir. -Reduce Gabapentin to 100mg TID (from 300mg BID). Full code. Heparin SQ. Discharge: Possibly in the next 24-48 hrs, pending cardiology clearance too.
[2018-01-06] MEDS ORDERED: Dextrose 50% in Water 50 ML Vial IV.PUSH PRN (13:19)
[2018-01-06] MEDS: Insulin NovoLOG Aspart Correctional Sugar Inj SQ SCH ×2 (17:34→22:32)
[2018-01-07] MEDS: Chlorhexidine Gluconate 2% 1 Pack (2 Cloths) TOPICAL SCH (04:00)
[2018-01-07 07:23] LABS: Calcium 8.8 mg/dL (8.5-10.1); Carbon Dioxide 27.2 meq/L (21.0-32.0); Potassium 4.1 meq/L (3.5-5.1)
[2018-01-07] MEDS: Heparin - SQ 10,000 UNITS/ML Vial SQ SCH ×2 (09:27→17:50)
[2018-01-07] MEDS: Insulin NovoLOG Aspart Correctional Sugar Inj SQ SCH ×3 (09:27→17:50)
[2018-01-07] MEDS: Pantoprazole Sodium 20 MG DR Tablet PO SCH (09:28)
[2018-01-07] MEDS: Atenolol 50 MG Tablet PO SCH (09:28)
[2018-01-07] MEDS: Gabapentin 300 MG Capsule PO SCH (09:28)
[2018-01-07] MEDS: Senna/Docusate Sodium 8.6/50 MG Tablet PO SCH (09:29)
--- NOTE | 2018-01-07 11:54 | P.PN ---
Subjective Interval history: Follow-up for acute exacerbation of CHF. Patient is resting in bed. He reports improvement of his breathing. No fever, chills. Physical Exam Vital signs: Vital Signs 01/06/18 12:00 01/06/18 16:00 01/06/18 20:00 Temperature 97.3 F L 97.6 F 97.3 F L Pulse Rate 70 67 68 Respiratory Rate 18 17 19 Blood Pressure 112/56 L 115/60 123/60 Pulse Oximetry 97 97 92 L 01/06/18 20:38 01/07/18 00:00 01/07/18 03:03 Temperature 97.5 F L Pulse Rate 66 70 69 Respiratory Rate 18 18 20 Blood Pressure 126/65 Pulse Oximetry 98 93 L 01/07/18 04:00 01/07/18 08:00 01/07/18 09:51 Temperature 97.2 F L Pulse Rate 78 78 Respiratory Rate 18 18 16 Blood Pressure 109/59 L Pulse Oximetry 94 L 94 L Intake & Output 01/06/18 01/07/18 01/07/18 18:59 06:59 18:59 Intake Total 1208 / 1208 300 / 300 Output Total 775 / 775 1300 / 1300 Balance 433 / 433 -1000 / -1000 Weight 137.8 kg Intake: Oral 1208 / 1208 300 / 300 Output: Urine 775 / 775 1300 / 1300 Other: # Voids 1 Date of Last Bowel Movement 01/05/18 # Bowel Movements 2 Narrative: GENERAL: 82-year-old male, obese male EYES: No scleral icterus. No injection or drainage. NECK: Supple, trachea midline. No JVD or lymphadenopathy. CARDIOVASCULAR: Regular rate, distal heart sounds gallops, or rubs. RESPIRATORY: Poor air entry. Bibasilar crackles noted. GASTROINTESTINAL: Abdomen soft, non-tender, nondistended. MUSCULOSKELETAL: No cyanosis, Bilateral 2+ edema to lower legs Results - Labs CBC & Chem 7: 01/06/18 07:09 01/07/18 05:12 Laboratory Results - last 24 hr 01/06/18 01/06/18 01/06/18 12:04 17:22 22:30 Sodium Potassium Chloride Carbon Dioxide Anion Gap BUN Creatinine Estimated GFR POC Glucose 201 H 216 H 161 H Random Glucose Calcium 01/07/18 01/07/18 05:12 08:16 Sodium 141 Potassium 4.1 Chloride 104 Carbon Dioxide 27.2 Anion Gap 10 BUN 99 H Creatinine 2.56 H Estimated GFR 24 L POC Glucose 152 H Random Glucose 129 H Calcium 8.8 - Procedures Echocardiogram 01/05/2018 The left ventricular systolic function is moderately reduced with an estimated ejection fraction in the range of 40-45%. There was limited left ventricular wall motion assessment due to poor endocardial visualization. Mild mitral valve stenosis (mean grad 3 at a heart rate of 65, MVA 1.64). Trace mitral valve regurgitation. There is mild tricuspid valve regurgitation. Trivial pulmonary valve regurgitation. The inferior vena cava is dilated. There is less than 50% respiratory change in dimension of the inferior vena cava (abnormal). Assessment and Plan - Plan Mr. Franco is a pleasant 82-year-old male with a history of CHF, CAD who presented to the emergency department due to bilateral lower extremity edema. In the ED chest x-ray showed vascular congestion. Patient was placed on supplemental oxygen. Cardiology was consulted as well as critical care for borderline mean arterial blood pressure. Patient was given one-time IV Lasix. Patient's care was transferred to hospitalist service on 05/08/2017. Acute exacerbation of CHF, systolic -Echo on 01/05/2018 shows ejection fraction 45-50%. -Lasix was not started on this patient. -We will start Lasix 40 mg IV twice daily. Upon discharge will consider torsemide. -Appreciate cardiology input. Coronary artery disease -No acute concerns. Mild elevation in troponins are likely due to congestive heart failure as well as KESHAWN. -May switch to Coreg or Metoprolol succinate. Acute kidney injury CKD stage III -Creatinine 3.40 on admission. Trending down - currently 2.56. -Will monitor. Avoid BLOSSOM inhibitor for now. -Repeat BMP in the AM. Diabetes mellitus -Sliding scale insulin. If needed, we will add Levemir. -Reduce Gabapentin to 100mg TID (from 300mg BID). Deconditioned - PT consult pending. Patient will likely need SNF placement. Full code. Heparin SQ.
[2018-01-07] MEDS: Gabapentin 100 MG Capsule PO SCH ×2 (13:53→17:50)
[2018-01-07 16:20] VITALS: RESP 18
--- NOTE | 2018-01-07 20:59 | P.PNADD ---
Addendum to Inpatient Note Reason for Addendum: Additional Documentation Additional information: Notified by nursing that patient experienced sudden . Code status per EMR is DNR.
[2018-01-07 21:28] VITALS: BP 95/85; PULSE 72; TEMP 97; O2SAT 97
--- NOTE | 2018-01-14 22:40 | P.DN ---
- Provider Primary care physician: UNKNOWN Consults: 01/04/18 15:03 Consult to Cardiology Routine Consulting Provider: Fermin Kahn Does the patient have a Accounts Payables Clerk who follows them?: Yes Preferred Securities Dealer:: Torin Hills Reason for Consultation: CHF exacerbation Notified:: Service Spoke with:: Zohaib Date Notified:: 01/05/18 Time Notified:: 09:11 Ordering Provider: ELVIA Consult to Hospitalist Routine Consulting Provider: Sy Beach Reason for Consultation: Family medicine residents admitted patient on previous visit, continued medical management starting on 01/05/18 Notified:: Service Spoke with:: Ninfa Date Notified:: 01/04/18 Time Notified:: 15:19 Comments:: gave to ninfa Ordering Provider: ELVIA - Date and Time Date of admission: 01/04/18 15:00 - Summary Procedures: Echocardiogram 01/05/2018 The left ventricular systolic function is moderately reduced with an estimated ejection fraction in the range of 40-45%. There was limited left ventricular wall motion assessment due to poor endocardial visualization. Mild mitral valve stenosis (mean grad 3 at a heart rate of 65, MVA 1.64). Trace mitral valve regurgitation. There is mild tricuspid valve regurgitation. Trivial pulmonary valve regurgitation. The inferior vena cava is dilated. There is less than 50% respiratory change in dimension of the inferior vena cava (abnormal). Brief History: 82yM presenting with bilateral lower extremity edema x 1 week. The patient reports that he has noticed bilateral leg swelling starting approximately 7 days ago and getting worse over the past 2-3 days. He denies leg pain, chest pain, palpitations, dyspnea, or orthopnea. He is unsure if he has recently gained weight. He lives at an independent living facility and reports that he did not take his Lasix this morning because his blood pressure was low. In the ED, he was found to have increased pulmonary vascular congestion on CXR, required supplemental O2 via nasal cannula, and was also found to have an acute kidney injury. Critical care was consulted for complexity of case and concern for borderline MAP. History of CAD, follows with Dr. Hills of cardiology, unclear if he's been diagnosed with CHF in the past. Family history significant for parents with heart disease. Result Diagrams: 01/06/18 07:09 01/07/18 05:12 Hospital Course: Mr. Franco is a pleasant 82-year-old male with a history of CHF, CAD who presented to the emergency department due to bilateral lower extremity edema. In the ED chest x-ray showed vascular congestion. Patient was placed on supplemental oxygen. Cardiology was consulted as well as critical care for borderline mean arterial blood pressure. Patient was given one-time IV Lasix. Patient's care was transferred to hospitalist service on 05/08/2017. Acute exacerbation of CHF, systolic -Echo on 01/05/2018 shows ejection fraction 45-50%. -Lasix was not started on this patient. -We will start Lasix 40 mg IV twice daily. Upon discharge will consider torsemide. -Appreciate cardiology input. Coronary artery disease -No acute concerns. Mild elevation in troponins are likely due to congestive heart failure as well as KESHAWN. -Continue atenolol, Plavix. Patient is not on statin. Acute kidney injury CKD stage III -Creatinine 3.40 on admission. Trending down. -Will monitor. Avoid BLOSSOM inhibitor for now. Diabetes mellitus -Sliding scale insulin. If needed, we will add Levemir. -Reduce Gabapentin to 100mg TID (from 300mg BID). Full code. Heparin SQ. Overall, patient was improving clinically with diuretics. However patient was found unresponsive at night. He is DNR. He was pronounced . Per nursing report, the following occurred at night on 01/08/2018: Explained to family that patient was AOx3 and talking during first rounds by me at 1958, however he stated he had chest pains. Vital signs were obtained and vital signs were stable, [facility] was called. Several minutes later patient stated he needed respiratory therapy treatment. Camelia Chicas CNA called them, they were in route to patient. At 2024, patient became bradycardic with heart rate in the 20s and no respiratory rate, pt also became hypotensive and the patient was unresponsive. Patient is a DNR. Family was notified, [facility] called, [facility] Belongings (cell phone, tax credit leasing consultant, phone case, ring, and glasses) still on unit. Family to decide on home and other arrangements tomorrow.
== END 2018-01-07 20:25 | disposition expired ==
LOC: NEPE 10:26 → NEDA 15:00 → HIMC 16:00 → N07 01-06 02:17
PROVIDERS: ADMIT Hospitalist; ATTEND Hospitalist